=== PATIENT | female | born 1960 | race African-American/Black ===

== ENCOUNTER 2016-06-08 08:21 | Emergency (ER) | payer OTHER ==
[2016-06-08 08:43] VITALS: BP 146/78
--- NOTE | 2016-06-08 09:10 | UC ---
Throat Pain/Nasal Yamil HPI - HPI Summary HPI Summary: Very sore throat with nasal congestion since yesterday, temp of 100.5 last night. Denies trouble breathing or n/v/d. School-aged aba was at house last week, left a couple days ago. - History of Current Complaint Chief Complaint: UCGeneralIllness Stated Complaint: SORE THROAT CONGESTION Time Seen by Provider: 06/08/16 09:02 Hx Obtained From: Patient ?: No Onset/Duration: Gradual Onset, Lasting Hours Severity: Moderate Cough: None Associated Signs & Symptoms: Positive: Nasal Discharge, Fever. Negative: Vomiting - Allergies/Home Medications Allergies/Adverse Reactions: Allergies Allergy/AdvReac Type Severity Reaction Status Date / Time No Known Allergies Allergy Verified 09/30/15 09:36 PMH/Surg Hx/FS Hx/Imm Hx Cardiovascular History Of: Reports: Hypertension - ON MEDS Respiratory History Of: Reports: Asthma Psychological History Of: Reports: Bipolar Disorder - Surgical History Surgical History: Yes Surgery Procedure, Year, and Place: appendix; tubal ligation - Family History Known Family History: Positive: Hypertension - Social History Lives: With Family Alcohol Use: Daily Alcohol Amount: 2 cans of beer per day - last drink three days ago Substance Use Type: Marijuana Substance Use Comment - Amount & Last Used: daily Smoking Status (MU): Light Every Day Tobacco Smoker Review of Systems Constitutional: Fever Skin: Negative Eyes: Negative ENT: Sore Throat, Nasal Discharge Respiratory: Negative Cardiovascular: Negative Gastrointestinal: Negative Genitourinary: Negative Motor: Negative Neurovascular: Negative Musculoskeletal: Negative Neurological: Negative Psychological: Negative All Other Systems Reviewed And Are Negative: Yes Physical Exam Triage Information Reviewed: Yes Appearance: Well-Appearing, No Pain Distress, Obese Vital Signs: Initial Vital Signs Temp 99.0 F 06/08/16 08:37 Pulse 122 06/08/16 08:37 Resp 20 06/08/16 08:37 BP 146/78 06/08/16 08:37 Pulse Ox 98 06/08/16 08:37 Vital Signs Reviewed: Yes Eye Exam: Normal Eyes: Positive: Conjunctiva Clear ENT: Positive: Hearing grossly normal, Pharyngeal erythema - mild, TMs normal. Negative: Tonsillar swelling, Tonsillar exudate Dental Exam: Normal Neck exam: Normal Neck: Positive: Supple, Nontender, No Lymphadenopathy Respiratory Exam: Normal Respiratory: Positive: Chest non-tender, Lungs clear, Normal breath sounds, No respiratory distress, No accessory muscle use Cardiovascular: Positive: No Murmur, Tachycardia Musculoskeletal Exam: Normal Neurological Exam: Normal Psychological Exam: Normal Skin Exam: Normal Throat Pain/Nasal Course/Dx - Differential Dx/Diagnosis Provider Diagnoses: URI, likely viral Discharge - Discharge Plan Condition: Stable Disposition: HOME Prescriptions: Ibuprofen TAB* [Motrin TAB* 600 MG] 600 mg PO BID PRN #20 tab PRN Reason: pain Patient Education Materials: Upper Respiratory Infection (ED) Referrals: Antione Dasilva MD [Primary Care Provider] - If Needed Additional Instructions: Rapid strep negative. Call or return if you develop increasing fever, shortness of breath, chest pain , bloody sputum, or otherwise worsen. If you have not improved at all after several days, contact your primary care physician or return here. There is some concern about combining your medications with ibuprofen. In lower doses, and used occasionally, there should not be a problem. I recommend that you take one 600mg ibuprofen about an hour before bedtime to help with your throat pain at night. Take a dose in the morning or at lunch time only if no other remedies are helping. Other ways to help with your sore throat: gargle with warm salt water gargle with a numbing medicine, such as listerine sip hot tea (arleen and lemon with honey works well) take acetaminophen (tylenol) distract yourself, such as with watching a movie
== END 2016-06-08 09:36 | disposition home or self-care (01) ==
LOC: UCEAST 08:21
DX: J06.9 Acute upper respiratory infection, unspecified (principal); I10 Essential (primary) hypertension; F31.9 Bipolar disorder, unspecified; Z72.0 Tobacco use; J45.909 Unspecified asthma, uncomplicated
CPT/HCPCS: 87651; 99212; G0463

== ENCOUNTER 2016-06-15 07:49 | Emergency (ER) | payer OTHER ==
[2016-06-15 07:57] VITALS: BP 130/98
--- NOTE | 2016-06-15 09:12 | RAD ---
HISTORY: Crush injury, fourth digit of the left hand COMPARISONS: None VIEWS: 3, Frontal, lateral, and oblique views of the fourth digit of the left hand FINDINGS: BONE DENSITY: Normal. BONES: There is a transverse nondisplaced fracture of the distal phalanx of the fourth digit of left hand JOINTS: There is no arthropathy. ALIGNMENT: There is no dislocation. SOFT TISSUES: Unremarkable. OTHER FINDINGS: None. IMPRESSION: NONDISPLACED FRACTURE OF THE DISTAL PHALANX OF THE FOURTH DIGIT OF LEFT HAND
--- NOTE | 2016-06-15 09:46 | ED ---
Upper Extremity Pain - HPI Summary HPI Summary: Rt hand dominant pt here w/ Lt ring finger injury yesterday. Was closing her recycling bin when she accidentally slammed her finger tip in between the container and lid. Pain but she kept moving it around and didn't feel it was broken so went to bed. Today it is much more swollen and bruised. Still moving well but wanted to see what happened. No numbness, weakness - no other injuries to report. Denies cut or abrasions over the area. Imms are UTD. - History of Current Complaint Chief Complaint: EDExtremityUpper Stated Complaint: LT HAND / FINGER INJURY Time Seen by Provider: 06/15/16 09:31 Hx Obtained From: Patient - Allergies/Home Medications Allergies/Adverse Reactions: Allergies Allergy/AdvReac Type Severity Reaction Status Date / Time No Known Allergies Allergy Verified 09/30/15 09:36 PMH/Surg Hx/FS Hx/Imm Hx Previously Healthy: Yes Endocrine/Hematology History: Reports: Other Endocrine/Hematological Disorders - herpes Denies: Hx Anticoagulant Therapy, Hx Blood Disorders, Hx Unexplained Bleeding Cardiovascular History: Reports: Hx Hypertension - ON MEDS Respiratory History: Reports: Hx Asthma GI History: Reports: Other GI Disorders - Hep C Neurological History: Reports: Other Neuro Impairments/Disorders - PT STATES FAMILY HX SCIATICA Psychiatric History: Reports: Hx Bipolar Disorder - Surgical History Surgery Procedure, Year, and Place: appendix; tubal ligation Infectious Disease History: Yes Infectious Disease History: Reports: Hx Hepatitis - C, Hx Human Immunodeficiency Virus (HIV) - on meds Denies: Traveled Outside the [place] in Last 30 Days - Family History Known Family History: Positive: Hypertension, Diabetes - Social History Occupation: Disabled Lives: With Family - Alcohol Use: None Substance Use Type: Reports: Marijuana - occasionally Substance Use Comment - Amount & Last Used: daily Smoking Status (MU): Current Some Day Smoker - "occasionally", trying to quit Review of Systems Negative: Fever, Chills Negative: Chest Pain Negative: Shortness Of Breath Positive: no symptoms reported Musculoskeletal: Other - see HPI Positive: Bruising - see HPI Neurological: Negative Psychological: Normal All Other Systems Reviewed And Are Negative: Yes Physical Exam Triage Information Reviewed: Yes Vital Signs On Initial Exam: Initial Vitals Temp Pulse Resp BP Pulse Ox 97.2 F 111 20 130/98 97 06/15/16 07:54 06/15/16 07:54 06/15/16 07:54 06/15/16 07:54 06/15/16 07:54 Vital Signs Reviewed: Yes Appearance: Positive: Well-Appearing, No Pain Distress, Well-Nourished Skin: Positive: Warm, Dry - gustavo ecchymosis w/ edema of palmar surface of distal Lt ring finger phalanx - TTP; well perfused; moving finger well Head/Face: Positive: Normal Head/Face Inspection ENT: Positive: Hearing grossly normal Respiratory/Lung Sounds: Positive: Breath Sounds Present Cardiovascular: Positive: Pulses are Symmetrical in both Upper and Lower Extremities Musculoskeletal: Positive: Strength/ROM Intact, Pain @ - see SKIN above for details Neurological: Positive: Normal, Sensory/Motor Intact - affected area is hypersensitive to touch, Alert, Oriented to Person Place, Time Psychiatric: Positive: Normal Procedures - Splinting Location: Lt ring finger Pre-Made Type: metal - w/ foam Diagnostics - Vital Signs Vital Signs Temp Pulse Resp BP Pulse Ox 06/15/16 07:54 97.2 F 111 20 130/98 97 - Laboratory Lab Statement: Any lab studies that have been ordered have been reviewed, and results considered in the medical decision making process. Course/Dx - Diagnoses Provider Diagnoses: Fracture of distal phalanx of left ring finger Discharge - Discharge Plan Condition: Stable Disposition: HOME Prescriptions: Cephalexin CAP* [Keflex CAP*] 500 mg PO BID #19 cap Patient Education Materials: Finger Fracture (ED) Referrals: Antione Dasilva MD [Primary Care Provider] - Additional Instructions: Rest, ice, elevate Take antibiotics as directed Keep splint in place until cleared by PCP You may take ibuprofen with food for pain Follow-up with PCP later this week for recheck of tissue *if you develop redness, streaking, fever, chill, return to ED
[2016-06-15] MEDS ORDERED: Cephalexin CAP* 500 MG PO ONE (09:50)
[2016-06-15] MEDS ORDERED: Ibuprofen TAB* 600 MG PO ONE (09:50)
== END 2016-06-15 10:33 | disposition home or self-care (01) ==
LOC: ED 07:49
DX: S62.605A Fracture of unspecified phalanx of left ring finger, initial encounter for closed fracture (principal); W22.8XXA Striking against or struck by other objects, initial encounter; Y93.9 Activity, unspecified; Y92.89 Other specified places as the place of occurrence of the external cause; Y99.9 Unspecified external cause status
CPT/HCPCS: 73140; 99282; A9270-GY

== ENCOUNTER 2017-01-18 09:34 | Emergency (ER) | payer OTHER ==
[2017-01-18] MEDS ORDERED: NS 0.9% 1000 ML* 1,000 ML IV ONE (10:08)
[2017-01-18] MEDS ORDERED: GuaiFENesin DM* 5 ML UDC PO ONE (10:09)
[2017-01-18 10:33] LABS: Hematocrit 42 % (35-47); Hemoglobin 14.2 g/dl (12.0-16.0); Mean Corpuscular HGB Conc 34 g/dl (31-36); Mean Corpuscular Hemoglobin 32 pg (27-31); Mean Corpuscular Volume 94 fL (80-97); Mean Platelet Volume 9 um3 (7.4-10.4); Red Blood Count 4.48 10^6/ul (4.0-5.4); Red Cell Distribution Width 14 % (10.5-15); White Blood Count 6.7 10^3/ul (3.5-10.8)
--- NOTE | 2017-01-18 10:37 | RAD ---
Indication: Shortness of breath. 2 views of the chest including dual energy PA views demonstrate no mediastinal shift. Heart is of normal size and configuration. Lung nunez are clear. When compared to previous exam February 29, 2016 no significant change is noted. IMPRESSION: No active cardiopulmonary disease is noted.
[2017-01-18 11:04] LABS: Albumin 4.4 g/dL (3.2-5.2); C Reactive Protein 2.3 mg/L (< 5.00); Calcium 9.3 mg/dL (8.6-10.3); EGFR Non-African American 52.1 (>60); Globulin 3.2 g/dL (2-4); Potassium 4.1 mmol/L (3.5-5.0); Total Bilirubin 0.4 mg/dL (0.2-1.0); Total Protein 7.6 g/dL (6.4-8.9)
[2017-01-18 12:06] LABS: Urine Bilirubin Negative (Negative); Urine Glucose Negative (Negative); Urine Nitrite Negative (Negative)
[2017-01-18 12:42] VITALS: BP 136/81
--- NOTE | 2017-01-18 18:40 | ED ---
Sommer Gabriel SooYoung, scribed for Tres Kaiser MD on 01/18/17 at 1009 . Respiratory - HPI Summary HPI Summary: A 56 y/o F presents to ED with c/o severe cough onset three days ago. Associated sx: chills, diaphoresis. Denies CP. Smoker. Denies COPD. PMHx: asthma , - History of Current Complaint Chief Complaint: EDShortnessOfBreath Stated Complaint: BREATHING PROBLEM Time Seen by Provider: 01/18/17 10:04 Onset/Duration: Lasting Days, Still Present Current Severity: Mild Pain Intensity: 0 Associated Signs and Symptoms: Chills, Diaphoresis - Allergy/Home Medications Allergies/Adverse Reactions: Allergies Allergy/AdvReac Type Severity Reaction Status Date / Time Midazolam [From Versed] Allergy Unknown Verified 01/18/17 09:48 Reaction Details PMH/Surg Hx/FS Hx/Imm Hx Previously Healthy: No Endocrine/Hematology History: Reports: Other Endocrine/Hematological Disorders - herpes Denies: Hx Anticoagulant Therapy, Hx Blood Disorders, Hx Unexplained Bleeding Cardiovascular History: Reports: Hx Hypertension - ON MEDS Respiratory History: Reports: Hx Asthma GI History: Reports: Other GI Disorders - Hep C Neurological History: Reports: Other Neuro Impairments/Disorders - PT STATES FAMILY HX SCIATICA Psychiatric History: Reports: Hx Bipolar Disorder - Surgical History Surgery Procedure, Year, and Place: appendix; tubal ligation Infectious Disease History: No Infectious Disease History: Reports: Hx Hepatitis - C, Hx Human Immunodeficiency Virus (HIV) - on meds Denies: Traveled Outside the [place] in Last 30 Days - Family History Known Family History: Positive: Hypertension, Diabetes - Social History Occupation: Employed Full-time, Disabled Lives: With Family Alcohol Use: None Alcohol Amount: 1 beer last night Hx Substance Use: Yes Substance Use Type: Reports: Marijuana Substance Use Comment - Amount & Last Used: daily Hx Tobacco Use: Yes Smoking Status (MU): Heavy Every Day Tobacco Smoker Review of Systems Positive: Chills, Skin Diaphoresis Negative: Chest Pain Positive: Cough All Other Systems Reviewed And Are Negative: Yes Physical Exam - Summary Physical Exam Summary: VITAL SIGNS: Reviewed. GENERAL: Patient is a well-developed and nourished FEMALE who is lying comfortable in the stretcher. Patient is not in any acute respiratory distress. HEAD AND FACE: No signs of trauma. No ecchymosis, hematomas or skull depressions. No sinus tenderness. EYES: PERRLA, EOMI x 2, No injected conjunctiva, no nystagmus. EARS: Hearing grossly intact. Ear canals and tympanic membranes are within normal limits. MOUTH: Oropharynx within normal limits. NECK: Supple, trachea is midline, no adenopathy, no JVD, no carotid bruit, no c- spine tenderness, neck with full ROM. CHEST: Symmetric, no tenderness at palpation LUNGS: Diffuse rhonchi. Can hear congestion. CVS: Regular rate and rhythm, S1 and S2 present, no murmurs or gallops appreciated. ABDOMEN: Soft, non-tender. No signs of distention. No rebound, no guarding, and no masses palpated. Bowel sounds are normal. EXTREMITIES: FROM in all major joints, no edema, no cyanosis or clubbing. NEURO: Alert and oriented x 3. No acute neurological deficits. Speech is normal and follows commands. SKIN: Dry and warm Triage Information Reviewed: Yes Vital Signs On Initial Exam: Initial Vitals Temp Pulse Resp BP Pulse Ox 97.6 F 90 22 130/86 95 01/18/17 09:35 01/18/17 09:35 01/18/17 09:35 01/18/17 09:35 01/18/17 09:35 Vital Signs Reviewed: Yes - [place] Coma Scale Coma Scale Total: 15 Diagnostics - Vital Signs Vital Signs Temp Pulse Resp BP Pulse Ox 01/18/17 09:35 97.6 F 90 22 130/86 95 - Laboratory Lab Results: Lab Results 01/18/17 01/18/17 01/18/17 Range/Units 10:15 10:15 10:15 WBC 6.7 (3.5-10.8) 10^3/ul RBC 4.48 (4.0-5.4) 10^6/ul Hgb 14.2 (12.0-16.0) g/dl Hct 42 (35-47) % MCV 94 (80-97) fL MCH 32 H (27-31) pg MCHC 34 (31-36) g/dl RDW 14 (10.5-15) % Plt Count 208 (150-450) 10^3/ul MPV 9 (7.4-10.4) um3 Neut % (Auto) 51.0 (38-83) % Lymph % (Auto) 40.6 (25-47) % [place] % (Auto) 5.6 (1-9) % Eos % (Auto) 1.5 (0-6) % Baso % (Auto) 1.3 (0-2) % Absolute Neuts (auto) 3.4 (1.5-7.7) 10^3/ul Absolute Lymphs (auto) 2.7 (1.0-4.8) 10^3/ul Absolute Monos (auto) 0.4 (0-0.8) 10^3/ul Absolute Eos (auto) 0.1 (0-0.6) 10^3/ul Absolute Basos (auto) 0.1 (0-0.2) 10^3/ul Absolute Nucleated RBC 0.01 10^3/ul Nucleated RBC % 0.2 Sodium 135 (133-145) mmol/L Potassium 4.1 (3.5-5.0) mmol/L Chloride 103 (101-111) mmol/L Carbon Dioxide 27 (22-32) mmol/L Anion Gap 5 (2-11) mmol/L BUN 12 (6-24) mg/dL Creatinine 1.09 H (0.51-0.95) mg/dL Est GFR ( Amer) 67.0 (>60) Est GFR (Non-Af Amer) 52.1 (>60) BUN/Creatinine Ratio 11.0 (8-20) Glucose 97 (70-100) mg/dL Lactic Acid (0.5-2.0) mmol/L Calcium 9.3 (8.6-10.3) mg/dL Total Bilirubin 0.40 (0.2-1.0) mg/dL AST 21 (13-39) U/L ALT 20 (7-52) U/L Alkaline Phosphatase 92 (34-104) U/L Total Creatine Kinase 324 H (10-223) U/L Troponin I 0.00 (<0.04) ng/mL C-Reactive Protein 2.30 (< 5.00) mg/L B-Natriuretic Peptide 19 ( - 100) pg/mL Total Protein 7.6 (6.4-8.9) g/dL Albumin 4.4 (3.2-5.2) g/dL Globulin 3.2 (2-4) g/dL Albumin/Globulin Ratio 1.4 (1-3) Urine Color Urine Appearance Urine pH (5-9) Ur Specific [place] (1.010-1.030) Urine Protein (Negative) Urine Ketones (Negative) Urine Blood (Negative) Urine Nitrate (Negative) Urine Bilirubin (Negative) Urine Urobilinogen (Negative) Ur Leukocyte Esterase (Negative) Urine Glucose (Negative) Influenza A (Rapid) (Negative) Influenza B (Rapid) (Negative) 01/18/17 01/18/17 01/18/17 Range/Units 10:15 11:00 11:50 WBC (3.5-10.8) 10^3/ul RBC (4.0-5.4) 10^6/ul Hgb (12.0-16.0) g/dl Hct (35-47) % MCV (80-97) fL MCH (27-31) pg MCHC (31-36) g/dl RDW (10.5-15) % Plt Count (150-450) 10^3/ul MPV (7.4-10.4) um3 Neut % (Auto) (38-83) % Lymph % (Auto) (25-47) % [place] % (Auto) (1-9) % Eos % (Auto) (0-6) % Baso % (Auto) (0-2) % Absolute Neuts (auto) (1.5-7.7) 10^3/ul Absolute Lymphs (auto) (1.0-4.8) 10^3/ul Absolute Monos (auto) (0-0.8) 10^3/ul Absolute Eos (auto) (0-0.6) 10^3/ul Absolute Basos (auto) (0-0.2) 10^3/ul Absolute Nucleated RBC 10^3/ul Nucleated RBC % Sodium (133-145) mmol/L Potassium (3.5-5.0) mmol/L Chloride (101-111) mmol/L Carbon Dioxide (22-32) mmol/L Anion Gap (2-11) mmol/L BUN (6-24) mg/dL Creatinine (0.51-0.95) mg/dL Est GFR ( Amer) (>60) Est GFR (Non-Af Amer) (>60) BUN/Creatinine Ratio (8-20) Glucose (70-100) mg/dL Lactic Acid 1.0 (0.5-2.0) mmol/L Calcium (8.6-10.3) mg/dL Total Bilirubin (0.2-1.0) mg/dL AST (13-39) U/L ALT (7-52) U/L Alkaline Phosphatase (34-104) U/L Total Creatine Kinase (10-223) U/L Troponin I (<0.04) ng/mL C-Reactive Protein (< 5.00) mg/L B-Natriuretic Peptide ( - 100) pg/mL Total Protein (6.4-8.9) g/dL Albumin (3.2-5.2) g/dL Globulin (2-4) g/dL Albumin/Globulin Ratio (1-3) Urine Color Yellow Urine Appearance Clear Urine pH 6.0 (5-9) Ur Specific [place] 1.009 L (1.010-1.030) Urine Protein Negative (Negative) Urine Ketones Negative (Negative) Urine Blood Negative (Negative) Urine Nitrate Negative (Negative) Urine Bilirubin Negative (Negative) Urine Urobilinogen Negative (Negative) Ur Leukocyte Esterase Negative (Negative) Urine Glucose Negative (Negative) Influenza A (Rapid) Negative (Negative) Influenza B (Rapid) Negative (Negative) Result Diagrams: 01/18/17 10:15 01/18/17 10:15 Lab Statement: Any lab studies that have been ordered have been reviewed, and results considered in the medical decision making process. - Radiology CXR Xray Interpretation: No Acute Changes - IMPRESSION: No active cardiopulmonary dz. ED physician has reviewed this radiology report and agrees. Radiology Interpretation Completed By: Radiologist - EKG 1 Cardiac Rate: NL - 77bpm EKG Rhythm: Sinus Rhythm ST Segment: Normal Ectopy: None EKG Comparison: No Significant Change - from 09/30/2015 Re-Evaluation - Re-Evaluation 1 Re-Evaluation Time: 12:13 Change: Unchanged Comment: Discussing results with pt, and plan for dispo. Pt voiced understanding. Disposition - Course Course Of Treatment: A 56 y/o F presents to ED with c/o severe cough onset three days ago. Associated sx: chills, diaphoresis. Denies CP. Smoker. Denies COPD. PMHx: asthma. Test results are without any significant abnormalities. CXR is neg for PNA. Given robitussin for cough, and she improved. It seems that pt has an URI with viral etiology. Therefore, D/C home to f/u PCP, no need for ABX at this time. Recommended to return to ED if she develops fever, n/v, and productive cough. Pt voiced understanding. Pt is hemodynamically stable, A&Ox3. - Differential Dx - Cardiopulmonary Differential Diagnoses - Cardiopulmonary: Bronchitis, Influenza, Laryngitis, Lower Resp Infection, Sinusitis - Diagnoses Provider Diagnoses: URI (upper respiratory infection) Discharge - Discharge Plan Condition: Stable Disposition: HOME Prescriptions: GuaiFENesin DM* [Robitussin DM*] 10 ml PO Q6H PRN #120 ml PRN Reason: Cough Patient Education Materials: Guaifenesin (By mouth), Upper Respiratory Infection (ED) Referrals: Antione Dasilva MD [Primary Care Provider] - 3 Days Additional Instructions: Follow up with your primary care provider in 3 days. Please return to the ED if you experience new or worsening symptoms. The documentation as recorded by the Sommer pelletier SooYoung accurately reflects the service I personally performed and the decisions made by me, Tres Kaiser MD.
== END 2017-01-18 12:41 | disposition home or self-care (01) ==
LOC: ED 09:34
DX: J06.9 Acute upper respiratory infection, unspecified (principal); R05 Cough; R68.83 Chills (without fever); F17.210 Nicotine dependence, cigarettes, uncomplicated
CPT/HCPCS: 36415; 71020; 80053; 81003; 82550; 83605; 83880; 84484; 85025; 86140; 87040; 87502; 93005; 99283; A9270-GY

== ENCOUNTER → 2017-01-30 04:11 | Emergency (ER) | payer OTHER ==
[~2017-01-30 04:11] MED LIST: Albuterol/Ipratropium NEB.SOL* Albuterol 2.5 MG/Ipratropium 0.5 MG 3 ML INH ONE; Azithromycin TAB* 250 MG PO ONE; predniSONE TAB* 20 MG PO ONE
[2017-01-30 05:25] LABS: Hematocrit 40 % (35-47); Hemoglobin 13.4 g/dl (12.0-16.0); Mean Corpuscular HGB Conc 34 g/dl (31-36); Mean Corpuscular Hemoglobin 32 pg (27-31); Mean Corpuscular Volume 95 fL (80-97); Mean Platelet Volume 9 um3 (7.4-10.4); Red Blood Count 4.18 10^6/ul (4.0-5.4); Red Cell Distribution Width 14 % (10.5-15)
[2017-01-30 05:38] LABS: Albumin 4.1 g/dL (3.2-5.2); BUN/Creatinine Ratio 15.5 (8-20); Calcium 9.4 mg/dL (8.6-10.3); EGFR African American 76.4 (>60); EGFR Non-African American 59.4 (>60); Globulin 2.9 g/dL (2-4); Total Bilirubin 0.2 mg/dL (0.2-1.0)
[2017-01-30 05:53] VITALS: BP 139/91
[2017-01-30 05:54] LABS: Potassium 4.2 mmol/L (3.5-5.0)
--- NOTE | 2017-01-30 09:22 | RAD ---
Indication: Shortness of breath. History of tobacco use. Comparison: January 19, 2017 chest radiograph and September 30, 2015 CT abdomen. Technique: Upright AP 0440 hours Report: Patchy rarefaction of the upper lung zone interstitial markings. No pulmonary infiltrate, focal pulmonary lesion, pleural effusion, pneumothorax. Upper normal heart size. Unremarkable central pulmonary vasculature and mediastinal contours. IMPRESSION: Stigmata of obstructive lung disease. No acute pulmonary or cardiac process evident.
--- NOTE | 2017-02-01 02:45 | ED ---
Lyn Gabriel Edward, scribed for Naeem Rivero on 01/30/17 at 0414 . Shortness of Breath - HPI Summary HPI Summary: 57 y/o female BIBA c/o intermittent cough lasting 3 weeks. The cough is nonproductive. Pt c/o dizziness. Associated sx: mild SOB aggravated with her cough. Denies fever. MHx asthma. Pt states there may be some mold at her home. The symptoms are not alleviated with anything. PMHx HIV. Smoker. Pt smokes marijuana. FHx DM and HTN. - History of Current Complaint Hx Obtained From: Patient Onset/Duration: Lasting Weeks Current Severity: Severe Dyspnea At: Rest Aggrevating Factors: Other - Cough Alleviating Factors: Nothing Associated Signs & Symptoms: Cough (Nonproductive), Dizzy - Allergy/Home Medications Allergies/Adverse Reactions: Allergies Allergy/AdvReac Type Severity Reaction Status Date / Time Midazolam [From Versed] Allergy Unknown Verified 01/18/17 09:48 Reaction Details PMH/Surg Hx/FS Hx/Imm Hx Previously Healthy: No Endocrine/Hematology History: Reports: Other Endocrine/Hematological Disorders - herpes Denies: Hx Anticoagulant Therapy, Hx Blood Disorders, Hx Unexplained Bleeding Cardiovascular History: Reports: Hx Hypertension - ON MEDS Respiratory History: Reports: Hx Asthma GI History: Reports: Other GI Disorders - Hep C Neurological History: Reports: Other Neuro Impairments/Disorders - PT STATES FAMILY HX SCIATICA Psychiatric History: Reports: Hx Bipolar Disorder - Surgical History Surgery Procedure, Year, and Place: appendix; tubal ligation Infectious Disease History: Reports: Hx Hepatitis - C, Hx Human Immunodeficiency Virus (HIV) - on meds - Family History Known Family History: Positive: Hypertension, Diabetes - Social History Alcohol Use: None Alcohol Amount: 1 beer last night Hx Substance Use: Yes Substance Use Type: Reports: Marijuana Substance Use Comment - Amount & Last Used: daily Hx Tobacco Use: Yes Smoking Status (MU): Heavy Every Day Tobacco Smoker Review of Systems Constitutional: Negative Eyes: Negative ENT: Negative Cardiovascular: Negative Positive: Shortness Of Breath, Cough Gastrointestinal: Negative Genitourinary: Negative Musculoskeletal: Negative Skin: Negative Neurological: Other - Dizziness Psychological: Normal All Other Systems Reviewed And Are Negative: Yes Physical Exam Triage Information Reviewed: Yes Vital Signs Reviewed: Yes Appearance: Positive: Well-Appearing, No Pain Distress Skin: Positive: Warm, Skin Color Reflects Adequate Perfusion, Dry Head/Face: Positive: Normal Head/Face Inspection Eyes: Positive: EOMI, NEDRA ENT: Positive: Normal ENT inspection Neck: Positive: Supple, Nontender Respiratory/Lung Sounds: Positive: Breath Sounds Present, Wheezes - Bilateral Cardiovascular: Positive: RRR, Pulses are Symmetrical in both Upper and Lower Extremities Abdomen Description: Positive: Nontender, Soft Bowel Sounds: Positive: Present Musculoskeletal: Positive: Normal, Strength/ROM Intact Neurological: Positive: Normal, Sensory/Motor Intact, Alert, Oriented to Person Place, Time Diagnostics - Laboratory Result Diagrams: 01/30/17 05:14 01/30/17 05:14 Lab Statement: Any lab studies that have been ordered have been reviewed, and results considered in the medical decision making process. - Radiology CXR Xray Interpretation: No Acute Changes Radiology Interpretation Completed By: ED Physician - EKG 1 EKG Interpretation: 04:32 - SR @ 81 BPM. NO ACUTE CHANGES Course/Dx - Course Assessment/Plan: 57 y/o female BIBA c/o intermittent cough lasting 3 weeks. The cough is nonproductive. Pt c/o dizziness. Associated sx: mild SOB aggravated with her cough. Denies fever. MHx asthma. Pt states there may be some mold at her home. The symptoms are not alleviated with anything. PMHx HIV. Smoker. Pt smokes marijuana. FHx DM and HTN. EKG @ 04:32 - SR @ 81 BPM. NO ACUTE CHANGES. CXR NEGATIVE. Test results WNL. Given duoneb and prednisone, feels better. Most likely pt has exacerbation of asthma and bronchitis. Will d/c pt with steroids and abx and f/u with PCP in 3 days. - Diagnoses Provider Diagnoses: Exacerbation of asthma, exacerbation of bronchitis Discharge - Discharge Plan Condition: Stable Disposition: HOME Patient Education Materials: Asthma (ED), Acute Bronchitis (ED) Referrals: Antione Dasilva MD [Primary Care Provider] - 3 Days (PLEASE F/U IN 2-3 DAYS) The documentation as recorded by the Lyn pelletier Edward accurately reflects the service I personally performed and the decisions made by Mat spear Emmanuel.
== END | disposition home or self-care (01) ==
LOC: ED 04:11
DX: J45.901 Unspecified asthma with (acute) exacerbation (principal); B20 Human immunodeficiency virus [HIV] disease; Z72.0 Tobacco use; I10 Essential (primary) hypertension; F31.9 Bipolar disorder, unspecified
CPT/HCPCS: 36415; 71010; 80053; 83880; 84484; 85025; 93005; 94640; 99283; A9270-GY; J7512

== ENCOUNTER 2017-03-02 09:14 | Emergency (ER) | payer OTHER ==
[2017-03-02 10:03] LABS: Hematocrit 43 % (35-47); Hemoglobin 14.2 g/dl (12.0-16.0); Mean Corpuscular HGB Conc 33 g/dl (31-36); Mean Corpuscular Hemoglobin 31 pg (27-31); Mean Corpuscular Volume 94 fL (80-97); Mean Platelet Volume 9 um3 (7.4-10.4); Red Blood Count 4.53 10^6/ul (4.0-5.4); Red Cell Distribution Width 14 % (10.5-15); White Blood Count 6.9 10^3/ul (3.5-10.8)
[2017-03-02 10:18] LABS: Albumin 4.4 g/dL (3.2-5.2); BUN/Creatinine Ratio 14.3 (8-20); C Reactive Protein 3.77 mg/L (< 5.00); Calcium 9.9 mg/dL (8.6-10.3); EGFR African American 69.7 (>60); EGFR Non-African American 54.2 (>60); Globulin 3.3 g/dL (2-4); Potassium 4.1 mmol/L (3.5-5.0); Total Bilirubin 0.3 mg/dL (0.2-1.0); Total Protein 7.7 g/dL (6.4-8.9)
--- NOTE | 2017-03-02 10:26 | RAD ---
Indication: Cough. 2 views of the chest are reviewed. Dual-energy PA views were obtained. Comparison is made with previous exam dated January 18, 2017. No mediastinal shift is noted. Heart is of normal size and configuration. Lung nunez are clear. IMPRESSION: No active cardiopulmonary disease is noted.
--- NOTE | 2017-03-02 10:39 | RAD ---
Indication: Left flank pain. CT of the abdomen and pelvis was performed without oral or IV contrast administration. Coronal and sagittal reconstructed images were obtained. Comparison is made with previous exam dated September 29, 2015. The lung bases demonstrate no pleural fluid, nodules or masses. Heart is of normal size without evidence pericardial effusion. Liver is normal in size. No focal lesions or intrahepatic ductal dilatation is noted. The spleen is normal in size. The pancreas indicates no mass or pancreatic duct dilatation. The common duct is not dilated. The gallbladder demonstrates no calcified gallstones, pericholecystic fluid or wall thickening. No adrenal masses are noted. The kidneys demonstrate no hydronephrosis. No retroperitoneal lymphadenopathy is noted. CT of the pelvis demonstrates no retroperitoneal or pelvic lymphadenopathy. No dilated loops of bowel are noted. The bladder is unremarkable. No hernias are noted. The uterus and ovaries are grossly unremarkable. Pelvic ring is intact. IMPRESSION: No definite evidence of obstructive uropathy. No other masses or fluid collections are identified.
[2017-03-02] MEDS ORDERED: NS 0.9% 1000 ML* 1,000 ML IV ONE (11:09)
[2017-03-02] MEDS ORDERED: oxyCODONE TAB* 5 MG TAB PO ONE (11:10)
[2017-03-02 11:35] LABS: Urine Bilirubin Negative (Negative); Urine Glucose Negative (Negative); Urine Nitrite Negative (Negative)
[2017-03-02] MEDS ORDERED: Acetaminophen TAB* 325 MG PO ONE (11:58)
[2017-03-02 13:38] VITALS: BP 142/97
--- NOTE | 2017-03-03 07:41 | ED ---
Raza Gabriel Angela, scribed for Tres Kaiser MD on 03/02/17 at 0934 . Complex/Multi-Sys Presentation - HPI Summary HPI Summary: This pt is a 57 y/o female presenting to [facility] via EMS c/o low back pain and myalgia. Pt reports "everything hurts." She notes she has pain starting in her low back radiating all the way up to her ear. Pt additionally c/o cough, sore throat, diarrhea. She denies rhinorrhea, dysuria, chest pain. PMHx includes HIV positive, hepatitis B, asthma. - History Of Current Complaint Time Seen by Provider: 03/02/17 09:21 Hx Obtained From: Patient Onset/Duration: Lasting Days, Still Present Timing: Days Location: Pain At: - low back, Radiates To: - up to her ear Associated Signs And Symptoms: Positive: Cough, Diarrhea, Other - POS: sore throat. NEG: rhinorrhea. Negative: Dysuria - Allergies/Home Medications Allergies/Adverse Reactions: Allergies Allergy/AdvReac Type Severity Reaction Status Date / Time Midazolam [From Versed] Allergy Unknown Verified 01/18/17 09:48 Reaction Details Oxycodone Allergy Itching Verified 03/02/17 11:22 PMH/Surg Hx/FS Hx/Imm Hx Endocrine/Hematology History: Reports: Other Endocrine/Hematological Disorders - herpes Denies: Hx Anticoagulant Therapy, Hx Blood Disorders, Hx Unexplained Bleeding Cardiovascular History: Reports: Hx Hypertension - ON MEDS Respiratory History: Reports: Hx Asthma GI History: Reports: Other GI Disorders - Hep C Neurological History: Reports: Other Neuro Impairments/Disorders - PT STATES FAMILY HX SCIATICA Psychiatric History: Reports: Hx Bipolar Disorder - Surgical History Surgery Procedure, Year, and Place: appendix; tubal ligation - Immunization History Date of Tetanus Vaccine: UTD Date of Influenza Vaccine: NO Infectious Disease History: Reports: Hx Hepatitis - C, Hx Human Immunodeficiency Virus (HIV) - on meds - Family History Known Family History: Positive: Hypertension, Diabetes - Social History Alcohol Use: None Alcohol Amount: 1 beer last night Hx Substance Use: Yes Substance Use Type: Reports: Marijuana Substance Use Comment - Amount & Last Used: daily Hx Tobacco Use: Yes Smoking Status (MU): Heavy Every Day Tobacco Smoker Review of Systems Negative: Fever, Chills Positive: Sore Throat Negative: Chest Pain Positive: Cough Positive: Diarrhea Musculoskeletal: Other - back pain Positive: Myalgia All Other Systems Reviewed And Are Negative: Yes Physical Exam - Summary Physical Exam Summary: VITAL SIGNS: Reviewed. GENERAL: Patient is a well-developed and nourished female who is lying comfortable in the stretcher. Patient is not in any acute respiratory distress. HEAD AND FACE: No signs of trauma. No ecchymosis, hematomas or skull depressions. No sinus tenderness. EYES: PERRLA, EOMI x 2, No injected conjunctiva, no nystagmus. EARS: Hearing grossly intact. Ear canals and tympanic membranes are within normal limits. MOUTH: Oropharynx within normal limits. NECK: Supple, trachea is midline, no adenopathy, no JVD, no carotid bruit, no c- spine tenderness, neck with full ROM. CHEST: Symmetric, no tenderness at palpation LUNGS: Clear to auscultation bilaterally. No wheezing or crackles. CVS: Regular rate and rhythm, S1 and S2 present, no murmurs or gallops appreciated. ABDOMEN: Soft, non-tender. No signs of distention. No rebound no guarding, and no masses palpated. Bowel sounds are normal. EXTREMITIES: FROM in all major joints, no edema, no cyanosis or clubbing. NEURO: Alert and oriented x 3. No acute neurological deficits. Speech is normal and follows commands. SKIN: Dry and warm Triage Information Reviewed: Yes Vital Signs Reviewed: Yes Diagnostics - Laboratory Result Diagrams: 03/02/17 09:50 03/02/17 09:50 Lab Statement: Any lab studies that have been ordered have been reviewed, and results considered in the medical decision making process. - Radiology Chest XR Xray Interpretation: No Acute Changes - IMPRESSION: No active cardiopulmonary disease is noted. ED physician has reviewed this radiology report and agrees. Radiology Interpretation Completed By: Radiologist - CT Abdomen/pelvis CT CT Interpretation: No Acute Changes - IMPRESSION: No definite evidence of obstructive uropathy. No other masses or fluid collections are identified. ED physician has reviewed this radiology report and agrees. CT Interpretation Completed By: Joycelyn Lassiter Multi-Symp Course/Dx Assessment/Plan: This pt is a 57 y/o female presenting to [facility] via EMS c/o low back pain and myalgia. Pt reports "everything hurts." She notes she has pain starting in her low back radiating all the way up to her ear. Pt additionally c/ o cough, sore throat, diarrhea. She denies rhinorrhea, dysuria, chest pain. PMHx includes HIV positive, hepatitis B, asthma. Test results without any significant abnormalities. Urinalysis is negative for UTI, influenza A and B and rapid strep are all negative. The pt had left flank pain and therefore I decided to do an abdomen/pelvis CT which is negative for ureterolithiasis. Abdomen/pelvis CT shows no definite evidence of obstructive uropathy. No other masses or fluid collections are identified. The pt is toleration PO without any nausea and vomiting. Pt was given IV fluids and oxycodone, and her symptoms improved. Therefore the pt will be discharged home with follow up from her PCP. Pt is hemodynamically stable, alert and oriented x3. - Diagnoses Provider Diagnoses: Upper respiratory infection, Back pain Discharge - Discharge Plan Condition: Stable Disposition: HOME Patient Education Materials: Upper Respiratory Infection (ED), Back Pain (ED) Referrals: Antione Dasilva MD [Primary Care Provider] - Additional Instructions: Please follow up with your primary care provider. RETURN TO THE ED FOR ANY WORSENING SYMPTOMS. The documentation as recorded by the Raza pelletier Angela accurately reflects the service I personally performed and the decisions made by me, Tres Kaiser MD.
== END 2017-03-02 13:36 | disposition home or self-care (01) ==
LOC: ED 09:14
DX: J06.9 Acute upper respiratory infection, unspecified (principal); M54.9 Dorsalgia, unspecified; R05 Cough; R19.7 Diarrhea, unspecified; J02.9 Acute pharyngitis, unspecified
CPT/HCPCS: 36415; 71020; 74176; 80053; 81003; 83690; 85025; 86140; 87502; 87651; 99282; A9270-GY

== ENCOUNTER 2017-04-01 16:11 | Emergency (ER) | payer OTHER ==
[2017-04-01 16:53] LABS: ABS Basophils 0.1 10^3/ul (0-0.2); ABS Eosinophils 0.1 10^3/ul (0-0.6); ABS Lymphocytes 3.3 10^3/ul (1.0-4.8); ABS Monocytes 0.5 10^3/ul (0-0.8); ABS Neutrophils 3.5 10^3/ul (1.5-7.7); ABS Nucleated RBC 0.02 10^3/ul; Eosinophil % 1.8 % (0-6); Hematocrit 42 % (35-47); Hemoglobin 13.9 g/dl (12.0-16.0); Lymphocyte % 43.8 % (25-47); Mean Corpuscular HGB Conc 33 g/dl (31-36); Mean Corpuscular Hemoglobin 31 pg (27-31); Mean Corpuscular Volume 94 fL (80-97); Mean Platelet Volume 10 um3 (7.4-10.4); Nucleated Red Blood Cells % 0.2; Platelet Count 207 10^3/ul (150-450); Red Blood Count 4.43 10^6/ul (4.0-5.4); Red Cell Distribution Width 14 % (10.5-15); White Blood Count 7.6 10^3/ul (3.5-10.8)
--- NOTE | 2017-04-01 16:53 | RAD ---
INDICATION: Chest pain COMPARISON: February 28, 2017 TECHNIQUE: An AP portable view obtained at 1637 hours is submitted. FINDINGS: Bones/Soft Tissues: There are no acute bony findings. Cardiomediastinal: The cardiomediastinal silhouette is normal. The interstitium is mildly prominent. Lungs: There are no infiltrates. Pleura: There are no pleural effusions. Other: None IMPRESSION: MILD INTERSTITIAL PROMINENCE, OTHERWISE NEGATIVE.
[2017-04-01] MEDS ORDERED: traMADol TAB* 50 MG PO ONE (17:14)
[2017-04-01 17:22] LABS: EGFR Non-African American 51.4 (>60)
[2017-04-01 18:29] VITALS: BP 151/95
--- NOTE | 2017-04-04 19:52 | ED ---
Ifeanyi Gabriel Natalie, scribed for Kwesi Majano MD on 04/01/17 at 1633 . HPI Chest Pain - HPI Summary HPI Summary: The pt is a 57 y/o F BIBA to the ED c/o sharp left flank pain starting this morning when she woke up. The pain radiates to her lower back. The pain is rated 10/10 in severity. The pain is aggravated by coughing, movement, and deep breaths. The pain is alleviated by nothing. 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 The pt has had nml urination and BM. She has not been on any long trips recently. Hx of asthma. - History of Current Complaint Chief Complaint: EDFlankPain Time Seen by Provider: 04/01/17 16:14 Hx Obtained From: Patient Onset/Duration: Started Hours Ago - when she woke up this morning, Still Present Timing: Constant, Lasting Hours Initial Severity: Severe Current Severity: Severe Pain Intensity: 10 Pain Scale Used: 0-10 Numeric Chest Pain Location: Left Lateral Chest Pain Radiates: Yes Chest Pain Radiates To:: Back - low back Character: Sharp/Stabbing Aggravating Factor(s): Movement, Deep Breaths Alleviating Factor(s): Nothing Associated Signs and Symptoms: Positive: Chest Pain - left lateral, Back Pain - low back, Other: - nml urination and BM - Allergy/Home Medications Allergies/Adverse Reactions: Allergies Allergy/AdvReac Type Severity Reaction Status Date / Time Midazolam [From Versed] Allergy Unknown Verified 01/18/17 09:48 Reaction Details Oxycodone Allergy Itching Verified 03/02/17 11:22 PMH/Surg Hx/FS Hx/Imm Hx Previously Healthy: No Endocrine/Hematology History: Reports: Other Endocrine/Hematological Disorders - herpes Denies: Hx Anticoagulant Therapy, Hx Blood Disorders, Hx Unexplained Bleeding Cardiovascular History: Reports: Hx Hypertension - ON MEDS Respiratory History: Reports: Hx Asthma GI History: Reports: Other GI Disorders - Hep C Neurological History: Reports: Other Neuro Impairments/Disorders - PT STATES FAMILY HX SCIATICA Psychiatric History: Reports: Hx Bipolar Disorder - Surgical History Surgery Procedure, Year, and Place: appendix; tubal ligation - Immunization History Date of Tetanus Vaccine: UTD Date of Influenza Vaccine: NO Infectious Disease History: No Infectious Disease History: Reports: Hx Hepatitis - C, Hx Human Immunodeficiency Virus (HIV) - on meds Denies: Traveled Outside the [place] in Last 30 Days - Family History Known Family History: Positive: Hypertension, Diabetes - Social History Alcohol Use: None Alcohol Amount: 1 beer last night Hx Substance Use: Yes Substance Use Type: Reports: Marijuana Substance Use Comment - Amount & Last Used: daily Hx Tobacco Use: Yes Smoking Status (MU): Heavy Every Day Tobacco Smoker Review of Systems Positive: Chest Pain - left flank Gastrointestinal: Other - nml BM Positive: other - nml urination Positive: Other - low back pain All Other Systems Reviewed And Are Negative: Yes Physical Exam - Summary Physical Exam Summary: Appearance: The patient is well-nourished in no acute distress and in no acute pain. Skin: The skin is warm and dry and skin color reflects adequate perfusion. HEENT: The head is normocephalic and atraumatic. The pupils are equal and reactive. The conjunctivae are clear and without drainage. Nares are patent and without drainage. Mouth reveals moist mucous membranes and the throat is without erythema and exudate. The external ears are intact. The ear canals are patent and without drainage. The tympanic membranes are intact. Neck: The neck is supple with full range of motion and non-tender. There are no carotid bruits. There is no neck vein distension. Respiratory: The patient is tender in posterior lateral chest wall. Lungs are clear to auscultation and breath sounds are symmetrical and equal. Cardiovascular: Heart is regular rate and rhythm. There is no murmur or rub auscultated. There is no peripheral edema and pulses are symmetrical and equal. Abdomen: The abdomen is soft and non-tender. There are normal bowel sounds heard in all four quadrants and there is no organomegaly palpated. Musculoskeletal: There is no back tenderness noted. Extremities are non-tender with full range of motion. There is good capillary refill. There is no peripheral edema or calf tenderness elicited. Neurological: Patient is alert and oriented to person, place and time. The patient has symmetrical motor strength in all four extremities. Cranial nerves are grossly intact. Deep tendon reflexes are symmetrical and equal in all four extremities. Psychiatric: The patient has an appropriate affect and does not exhibit any anxiety or depression. Triage Information Reviewed: Yes Vital Signs On Initial Exam: Initial Vitals Temp Pulse Resp BP Pulse Ox 97.8 F 99 18 120/98 98 04/01/17 16:13 04/01/17 16:13 04/01/17 16:13 04/01/17 16:13 04/01/17 16:13 Vital Signs Reviewed: Yes - Sam Coma Scale Coma Scale Total: 15 Diagnostics - Vital Signs Vital Signs Temp Pulse Resp BP Pulse Ox 04/01/17 16:13 97.8 F 99 18 120/98 98 - Laboratory Lab Results: Lab Results 04/01/17 04/01/17 04/01/17 Range/Units 16:20 16:20 16:20 WBC 7.6 (3.5-10.8) 10^3/ul RBC 4.43 (4.0-5.4) 10^6/ul Hgb 13.9 (12.0-16.0) g/dl Hct 42 (35-47) % MCV 94 (80-97) fL MCH 31 (27-31) pg MCHC 33 (31-36) g/dl RDW 14 (10.5-15) % Plt Count 207 (150-450) 10^3/ul MPV 10 (7.4-10.4) um3 Neut % (Auto) 46.5 (38-83) % Lymph % (Auto) 43.8 (25-47) % Morgan % (Auto) 6.9 (1-9) % Eos % (Auto) 1.8 (0-6) % Baso % (Auto) 1.0 (0-2) % Absolute Neuts (auto) 3.5 (1.5-7.7) 10^3/ul Absolute Lymphs (auto) 3.3 (1.0-4.8) 10^3/ul Absolute Monos (auto) 0.5 (0-0.8) 10^3/ul Absolute Eos (auto) 0.1 (0-0.6) 10^3/ul Absolute Basos (auto) 0.1 (0-0.2) 10^3/ul Absolute Nucleated RBC 0.02 10^3/ul Nucleated RBC % 0.2 D-Dimer, Quantitative < 200 (Less Than 230) ng/mL Sodium 137 (133-145) mmol/L Potassium TNP Chloride 102 (101-111) mmol/L Carbon Dioxide 30 (22-32) mmol/L Anion Gap 5 (2-11) mmol/L BUN 13 (6-24) mg/dL Creatinine 1.10 H (0.51-0.95) mg/dL Est GFR ( Amer) 66.1 (>60) Est GFR (Non-Af Amer) 51.4 (>60) BUN/Creatinine Ratio 11.8 (8-20) Glucose 92 (70-100) mg/dL Lactic Acid (0.5-2.0) mmol/L Calcium 9.4 (8.6-10.3) mg/dL Total Bilirubin 0.30 (0.2-1.0) mg/dL AST TNP ALT 21 (7-52) U/L Alkaline Phosphatase 69 (34-104) U/L Troponin I 0.00 (<0.04) ng/mL Total Protein 7.6 (6.4-8.9) g/dL Albumin 4.4 (3.2-5.2) g/dL Globulin 3.2 (2-4) g/dL Albumin/Globulin Ratio 1.4 (1-3) 04/01/17 04/01/17 Range/Units 16:20 17:43 WBC (3.5-10.8) 10^3/ul RBC (4.0-5.4) 10^6/ul Hgb (12.0-16.0) g/dl Hct (35-47) % MCV (80-97) fL MCH (27-31) pg MCHC (31-36) g/dl RDW (10.5-15) % Plt Count (150-450) 10^3/ul MPV (7.4-10.4) um3 Neut % (Auto) (38-83) % Lymph % (Auto) (25-47) % Morgan % (Auto) (1-9) % Eos % (Auto) (0-6) % Baso % (Auto) (0-2) % Absolute Neuts (auto) (1.5-7.7) 10^3/ul Absolute Lymphs (auto) (1.0-4.8) 10^3/ul Absolute Monos (auto) (0-0.8) 10^3/ul Absolute Eos (auto) (0-0.6) 10^3/ul Absolute Basos (auto) (0-0.2) 10^3/ul Absolute Nucleated RBC 10^3/ul Nucleated RBC % D-Dimer, Quantitative (Less Than 230) ng/mL Sodium (133-145) mmol/L Potassium 4.4 Chloride (101-111) mmol/L Carbon Dioxide (22-32) mmol/L Anion Gap (2-11) mmol/L BUN (6-24) mg/dL Creatinine (0.51-0.95) mg/dL Est GFR ( Amer) (>60) Est GFR (Non-Af Amer) (>60) BUN/Creatinine Ratio (8-20) Glucose (70-100) mg/dL Lactic Acid 1.1 (0.5-2.0) mmol/L Calcium (8.6-10.3) mg/dL Total Bilirubin (0.2-1.0) mg/dL AST 26 ALT (7-52) U/L Alkaline Phosphatase (34-104) U/L Troponin I (<0.04) ng/mL Total Protein (6.4-8.9) g/dL Albumin (3.2-5.2) g/dL Globulin (2-4) g/dL Albumin/Globulin Ratio (1-3) Result Diagrams: 04/01/17 16:20 04/01/17 17:43 Lab Statement: Any lab studies that have been ordered have been reviewed, and results considered in the medical decision making process. - Radiology CXR Xray Interpretation: No Acute Changes - Mild interstitial prominence, otherwise negative. ED physician has reviewed this report. Radiology Interpretation Completed By: Radiologist - EKG 16:30 Cardiac Rate: NL EKG Rhythm: Sinus Rhythm - 87 BPM EKG Interpretation: Nml axis. Nml intervals. No ischemic changes. Chest Pain Course/Dx - Course Course Of Treatment: Ms. Bowman presented with 12 or so hours of left anterior/ inferior chest pain with movement and breathing. It was reproducible to palpation. Her W/U with ecg, trop and d-dimer was negative and she has an EDACS of -2. - Diagnoses Provider Diagnoses: Chest wall pain Discharge - Discharge Plan Condition: Stable Disposition: HOME Prescriptions: traMADol TAB* [Ultram*] 50 mg PO Q6HR PRN #20 tab MDD 4 PRN Reason: Pain Patient Education Materials: Chest Wall Pain (ED) Referrals: Antione Dasilva MD [Primary Care Provider] - 3 Days Additional Instructions: Follow up with your primary care provider in 3-5 days. Take Ultram as prescribed. Return to the Emergency Department if any new or worsening symptoms arise. The documentation as recorded by the Ifeanyi pelletier Natalie accurately reflects the service I personally performed and the decisions made by me, Kwesi Majano MD.
== END 2017-04-01 18:30 | disposition home or self-care (01) ==
LOC: ED 16:11
DX: R07.89 Other chest pain (principal); J98.4 Other disorders of lung; F17.200 Nicotine dependence, unspecified, uncomplicated; Z88.4 Allergy status to anesthetic agent; Z88.5 Allergy status to narcotic agent
CPT/HCPCS: 36415; 71010; 80053; 83605; 84484; 85025; 85379; 93005; 99283; A9270-GY

== ENCOUNTER 2017-07-03 23:42 | Emergency (ER) | payer OTHER ==
[2017-07-04] MEDS ORDERED: Morphine INJ* 4 MG/ML 1 ML SYRINGE (NEW SYRINGE VERSION) IM ONE (01:48)
[2017-07-04] MEDS ORDERED: Dexamethasone IV* 4 MG/ML 1 ML (4 MG) IM ONE (01:48)
[2017-07-04] MEDS ORDERED: Morphine INJ* 10 MG/ML 1 ML CARPUJECT ONE (01:56)
[2017-07-04] MEDS ORDERED: HYDROmorphone INJ* 2 MG/ML CARPUJECT SYRINGE IV SLOW PU ONE (01:58)
[2017-07-04] MEDS: Morphine INJ* 10 MG/ML 1 ML CARPUJECT IV ONE ×2 (02:00→02:04)
[2017-07-04 02:20] VITALS: BP 136/82
--- NOTE | 2017-07-04 04:52 | ED ---
Noel Gabriel Nikita, scribed for Ashish Claire MD on 07/04/17 at 0141 . Back Pain - HPI Summary HPI Summary: This patient is a 57 year old F presenting to ED with a chief complaint of acute on chronic lower back pain since yesterday. The CC is described as throbbing pain going down the back of her left leg. The patient rates the pain 10/10 in severity. Symptoms aggravated by nothing. Symptoms alleviated by nothing (she is on neurontin and a muscle relaxer which has not helped tonight) . Patient reports numbness of her fingers. Patient denies urinary problems or any recent falls. - History of Current Complaint Chief Complaint: EDBackInjuryPain Stated Complaint: BACK PAIN Hx Obtained From: Patient Onset/Duration: Sudden Onset, Lasting Days, Still Present Onset/Duration: Started Hours Ago, Still Present Timing: Constant - acute on chronic, Lasting Hours Back Pain Location: Is Discrete @ - lower back, Radiates To - down the back of her left leg Severity Initially: Severe Severity Currently: Severe Pain Intensity: 10 Pain Scale Used: 0-10 Numeric Character: Throbbing Aggravating Symptom(s): Nothing Alleviating Symptom(s): Nothing - she is on neurontin and a muscle relaxer which has not helped tonight Associated Signs And Symptoms: Positive: Other - Patient reports numbness of her fingers. Patient denies urinary problems or any recent falls. - Allergies/Home Medications Allergies/Adverse Reactions: Allergies Allergy/AdvReac Type Severity Reaction Status Date / Time midazolam [From Versed] Allergy Unknown Verified 07/04/17 00:00 Reaction Details oxycodone AdvReac Itching Verified 07/04/17 00:00 PMH/Surg Hx/FS Hx/Imm Hx Endocrine/Hematology History: Reports: Other Endocrine/Hematological Disorders - herpes Denies: Hx Anticoagulant Therapy, Hx Blood Disorders, Hx Unexplained Bleeding Cardiovascular History: Reports: Hx Hypertension - ON MEDS Respiratory History: Reports: Hx Asthma GI History: Reports: Other GI Disorders - Hep C Neurological History: Reports: Other Neuro Impairments/Disorders - PT STATES FAMILY HX SCIATICA Psychiatric History: Reports: Hx Bipolar Disorder - Surgical History Surgery Procedure, Year, and Place: appendix; tubal ligation - Immunization History Date of Tetanus Vaccine: UTD Date of Influenza Vaccine: NO Infectious Disease History: No Infectious Disease History: Reports: Hx Hepatitis - C, Hx Human Immunodeficiency Virus (HIV) - on meds Denies: Traveled Outside the [place] in Last 30 Days - Family History Known Family History: Positive: Hypertension, Diabetes - Social History Alcohol Use: None Alcohol Amount: 1 beer last night Hx Substance Use: Yes Substance Use Type: Reports: Marijuana Substance Use Comment - Amount & Last Used: daily Hx Tobacco Use: Yes Smoking Status (MU): Heavy Every Day Tobacco Smoker Review of Systems Positive: no symptoms reported Positive: Other - acute on chronic back pain that radiates down the left leg; denies any recent falls Positive: Numbness - of her fingers All Other Systems Reviewed And Are Negative: Yes Physical Exam - Summary Physical Exam Summary: Appearance: Well-appearing, Well-nourished Skin: Warm Eyes: Normal ENT: Normal Neck: Supple, nontender Respiratory: Clear to auscultation Cardiovascular: Normal S1, S2. No murmurs. Normal distal pulses in tibial and radial bilaterally. Abdomen: Soft, nontender Musculoskeletal: Mild tenderness diffusely in the L lower paraspinal area and L posterior hip. Neurological: Normal, A&Ox3, No distal weakness, no sensory defiicits, no saddled anesthesia Psychiatric: Normal General: No acute distress Triage Information Reviewed: Yes Vital Signs On Initial Exam: Initial Vitals Temp Pulse Resp BP Pulse Ox 99.4 F 95 20 136/98 95 07/03/17 23:44 07/03/17 23:44 07/03/17 23:44 07/03/17 23:44 07/03/17 23:44 Vital Signs Reviewed: Yes Diagnostics - Vital Signs Vital Signs Temp Pulse Resp BP Pulse Ox 07/03/17 23:44 99.4 F 95 20 136/98 95 - Laboratory Lab Statement: Any lab studies that have been ordered have been reviewed, and results considered in the medical decision making process. Back Pain Course/Dx - Course Assessment/Plan: The pt feels better after medications. She is neurologically intact and is walking on her own. The patient was instructed to follow up with her PCP. Pt agrees to and understands discharge instructions. - Diagnoses Differential Diagnosis/HQI/PQRI: Positive: Other - Lumbar radiculopathy Provider Diagnoses: Lumbar radiculopathy Discharge - Sign-Out/Discharge Documenting (check all that apply): Discharge - Discharge Plan Condition: Improved Disposition: HOME Patient Education Materials: Lumbar Radiculopathy (ED) Referrals: Antione Dasilva MD [Primary Care Provider] - Additional Instructions: PLEASE TAKE MEDICATIONS DIRECTED PLEASE RETURN IMMEDIATELY TO THE ER IF YOU HAVE ANY WORSENING OR CONCERNING SYMPTOMS PLEASE MAKE AN APPOINTMENT TO BE SEEN BY YOUR PRIMARY CARE DOCTOR WITHIN 1 WEEK The documentation as recorded by the Noel pelletier Nikita accurately reflects the service I personally performed and the decisions made by me, Ashish Claire MD.
== END 2017-07-04 02:19 | disposition home or self-care (01) ==
LOC: ED 23:42
DX: M54.16 Radiculopathy, lumbar region (principal); F17.210 Nicotine dependence, cigarettes, uncomplicated; Z86.79 Personal history of other diseases of the circulatory system; M54.5 Low back pain
CPT/HCPCS: 96372; 96374; 99281; J1100; J2270

== ENCOUNTER 2017-09-09 02:03 | Emergency (ER) | payer OTHER ==
[2017-09-09 02:08] VITALS: BP 141/102
[2017-09-09] MEDS ORDERED: oxyCODONE/Acetamin 5/325 MG* TAB PO ONE (02:43)
[2017-09-09] MEDS ORDERED: traMADol TAB* 50 MG PO ONE (03:08)
[2017-09-09] MEDS ORDERED: traMADol TAB* 50 MG ONE (03:10)
--- NOTE | 2017-09-09 03:23 | ED ---
Orlando Gbariel Tiffany, scribed for Erika Escobar MD on 09/09/17 at 0302 . Lower Extremity - HPI Summary HPI Summary: 57 year old F presenting to [facility] complains of bilateral "bottom of feet pain for 2 days. Pt rates the pain 10/10 in severity. Symptoms aggravated by nothing. Symptoms alleviated by nothing. Pt reports left knee pain, bilateral palms of hands pain. No hx neuropathy. - History of Current Complaint Chief Complaint: EDExtremityLower Stated Complaint: HAND AND KNEE PAIN Time Seen by Provider: 09/09/17 02:29 Hx Obtained From: Patient Onset/Duration: Days - 2 Severity Currently: Severe Pain Intensity: 10 Pain Scale Used: 0-10 Numeric Associated Signs And Symptoms: Positive: Other - Pt reports left knee pain, bilateral palms of hands pain. Aggravating Factor(s): Nothing Alleviating Factor(s): Nothing - Allergies/Home Medications Allergies/Adverse Reactions: Allergies Allergy/AdvReac Type Severity Reaction Status Date / Time midazolam [From Versed] Allergy Unknown Verified 09/09/17 02:41 Reaction Details oxycodone AdvReac Itching Verified 09/09/17 02:41 PMH/Surg Hx/FS Hx/Imm Hx Previously Healthy: No Endocrine/Hematology History: Reports: Other Endocrine/Hematological Disorders - herpes Denies: Hx Anticoagulant Therapy, Hx Blood Disorders, Hx Unexplained Bleeding Cardiovascular History: Reports: Hx Hypertension - ON MEDS Respiratory History: Reports: Hx Asthma GI History: Reports: Other GI Disorders - Hep C Neurological History: Reports: Other Neuro Impairments/Disorders - PT STATES FAMILY HX SCIATICA Psychiatric History: Reports: Hx Bipolar Disorder - Surgical History Surgery Procedure, Year, and Place: appendix; tubal ligation - Immunization History Date of Tetanus Vaccine: unk Date of Influenza Vaccine: fall 2016 Infectious Disease History: No Infectious Disease History: Reports: Hx Hepatitis - C, Hx Human Immunodeficiency Virus (HIV) - on meds Denies: Traveled Outside the [place] in Last 30 Days - Family History Known Family History: Positive: Hypertension, Diabetes - Social History Alcohol Use: Rare Alcohol Amount: 1 beer last night Hx Substance Use: Yes Substance Use Type: Reports: Marijuana Substance Use Comment - Amount & Last Used: daily Hx Tobacco Use: Yes Smoking Status (MU): Light Every Day Tobacco Smoker Review of Systems Negative: Fever Positive: Other - bilateral "bottom of feet pain," left knee pain, bilateral palms of hands pain All Other Systems Reviewed And Are Negative: Yes Physical Exam - Summary Physical Exam Summary: VITAL SIGNS: Reviewed. GENERAL: Patient is a well-developed and nourished (MALE OR FEMALE) who is lying comfortable in the stretcher. Patient is not in any acute respiratory distress. HEAD AND FACE: No signs of trauma. No ecchymosis, hematomas or skull depressions. No sinus tenderness. EYES: PERRLA, EOMI x 2, No injected conjunctiva, no nystagmus. EARS: Hearing grossly intact. Ear canals and tympanic membranes are within normal limits. MOUTH: Oropharynx within normal limits. NECK: Supple, trachea is midline, no adenopathy, no JVD, no carotid bruit, no c- spine tenderness, neck with full ROM. CHEST: Symmetric, no tenderness at palpation LUNGS: Clear to auscultation bilaterally. No wheezing or crackles. CVS: Regular rate and rhythm, S1 and S2 present, no murmurs or gallops appreciated. ABDOMEN: Soft, non-tender. No signs of distention. No rebound no guarding, and no masses palpated. Bowel sounds are normal. EXTREMITIES: Tenderness over the left knee, no swelling, FROM. NEURO: Alert and oriented x 3. No acute neurological deficits. Speech is normal and follows commands. SKIN: Dry and warm Triage Information Reviewed: Yes Vital Signs On Initial Exam: Initial Vitals Temp Pulse Resp BP Pulse Ox 97.1 F 101 18 141/102 96 09/09/17 02:05 09/09/17 02:05 09/09/17 02:05 09/09/17 02:05 09/09/17 02:05 Vital Signs Reviewed: Yes Diagnostics - Vital Signs Vital Signs Temp Pulse Resp BP Pulse Ox 09/09/17 02:05 97.1 F 101 18 141/102 96 - Laboratory Lab Statement: Any lab studies that have been ordered have been reviewed, and results considered in the medical decision making process. - Radiology Knee Radiology Interpretation Completed By: ED Physician - Negative. Pending official report. Lower Extremity Course/Dx - Course Course Of Treatment: 57 year old F presenting to [facility] complains of bilateral "bottom of feet pain for 2 days. Knee xray is negative. Pt will be discharged with prescription and followup from PCP in 1-2 days. - Diagnoses Provider Diagnoses: Left knee pain Discharge - Sign-Out/Discharge Documenting (check all that apply): Discharge/Admit/Transfer - Discharge Plan Condition: Stable Disposition: HOME Prescriptions: traMADol TAB* [Ultram*] 50 mg PO Q6HR PRN #14 tab MDD 4 PRN Reason: Pain Patient Education Materials: Knee Pain (ED) Referrals: Antione Dasilva MD [Primary Care Provider] - 2 Days Additional Instructions: Follow up with your primary care provider in 1-2 days. Return to the Emergency Department for any new or worsening symptoms. The documentation as recorded by the Orlando pelletier Tiffany accurately reflects the service I personally performed and the decisions made by , Erika Escobar MD.
--- NOTE | 2017-09-09 08:17 | RAD ---
Indication: LEFT knee pain post fall one week ago. Comparison: No relevant prior exams available on the [facility] PACS for comparison. Technique: LEFT knee: AP, tunnel, lateral, sunrise views. Report: Trace fluid in the suprapatella recess. Negative for fracture or malalignment. Minimal osteophytosis and mild medial joint space narrowing. Mild anterior soft tissue swelling. IMPRESSION: 1. Mild anterior soft tissue swelling. 2. Minimal joint effusion. 3. Osteoarthritis with mild medial joint space narrowing.
== END 2017-09-09 03:15 | disposition home or self-care (01) ==
LOC: ED 02:03
DX: M25.562 Pain in left knee (principal); Z72.0 Tobacco use; F31.9 Bipolar disorder, unspecified; I10 Essential (primary) hypertension; J45.909 Unspecified asthma, uncomplicated; M17.12 Unilateral primary osteoarthritis, left knee
CPT/HCPCS: 99282; A9270-GY

== ENCOUNTER 2017-09-30 05:12 | Emergency (ER) | payer OTHER ==
[2017-09-30 05:20] VITALS: BP 113/71
--- NOTE | 2017-09-30 06:04 | ED ---
Lower Extremity - HPI Summary HPI Summary: Patient is a 57-year-old female presenting to the ED with complaint of bilateral knee pain which has been present for many years but has been progressively worsening over the past several months. She denies any excess walking or other exercise. She denies any changes. Denies any falls or injuries. She was recently seen here in the ED for similar and x-rays obtained which show osteoarthritis with a mild joint effusion in the suprapatellar area. She has not been taking ibuprofen or using ice, however she has been using an [id number] muscle rub. She denies any other pain or complaints at this time. She states in the past she has been using gabapentin, but states that is no longer working for her. Symptoms are aggravated with nothing, alleviated with nothing. Pain is not worse with ambulation or better with rest. - History of Current Complaint Chief Complaint: EDExtremityLower Stated Complaint: KNEE PAIN Time Seen by Provider: 09/30/17 05:39 Hx Obtained From: Patient Mechanism Of Injury: Other - none known Onset/Duration: Still Present Severity Initially: Moderate Severity Currently: Moderate Pain Intensity: 5 Pain Scale Used: 0-10 Numeric Timing: Constant Location: Is Discrete @ - bilateral knee Character Of Pain: Aching Associated Signs And Symptoms: Positive: Knee Pain. Negative: Swelling, Redness , Bruising, Weakness, Dizziness Alleviating Factor(s): Rest Able to Bear Weight: No - Risk Factors Gout Risk Factors: Negative DVT Risk Factors: Negative Septic Arthritis Risk Factor: Negative - Allergies/Home Medications Allergies/Adverse Reactions: Allergies Allergy/AdvReac Type Severity Reaction Status Date / Time midazolam [From Versed] Allergy Unknown Verified 09/30/17 05:15 Reaction Details oxycodone AdvReac Itching Verified 09/30/17 05:15 PMH/Surg Hx/FS Hx/Imm Hx Previously Healthy: Yes Endocrine/Hematology History: Reports: Other Endocrine/Hematological Disorders - herpes Denies: Hx Anticoagulant Therapy, Hx Blood Disorders, Hx Unexplained Bleeding Cardiovascular History: Reports: Hx Hypertension - ON MEDS Respiratory History: Reports: Hx Asthma GI History: Reports: Other GI Disorders - Hep C Neurological History: Reports: Other Neuro Impairments/Disorders - PT STATES FAMILY HX SCIATICA Psychiatric History: Reports: Hx Bipolar Disorder - Surgical History Surgery Procedure, Year, and Place: appendix; tubal ligation - Immunization History Date of Tetanus Vaccine: unk Date of Influenza Vaccine: fall 2016 Hx Pertussis Vaccination: No Immunizations Up to Date: Unable to Obtain/Confirm Infectious Disease History: No Infectious Disease History: Reports: Hx Hepatitis - C, Hx Human Immunodeficiency Virus (HIV) - on meds Denies: Traveled Outside the [place] in Last 30 Days - Family History Known Family History: Positive: Hypertension, Diabetes - Social History Occupation: Unemployed Lives: With Family Alcohol Use: Rare Alcohol Amount: 1 beer last night Hx Substance Use: Yes Substance Use Type: Reports: Marijuana Substance Use Comment - Amount & Last Used: daily Hx Tobacco Use: Yes Smoking Status (MU): Light Every Day Tobacco Smoker Review of Systems Constitutional: Negative Negative: Fever, Chills, Fatigue Cardiovascular: Negative Respiratory: Negative Negative: Shortness Of Breath, Cough Positive: Arthralgia, Myalgia Skin: Negative Neurological: Negative All Other Systems Reviewed And Are Negative: Yes Physical Exam Triage Information Reviewed: Yes Vital Signs On Initial Exam: Initial Vitals Temp Pulse Resp BP Pulse Ox 98 F 94 16 113/71 96 09/30/17 05:19 09/30/17 05:19 09/30/17 05:19 09/30/17 05:19 09/30/17 05:19 Vital Signs Reviewed: Yes Appearance: Positive: Well-Appearing, Well-Nourished Skin: Positive: Warm, Skin Color Reflects Adequate Perfusion Head/Face: Positive: Normal Head/Face Inspection Neck: Positive: Supple, No Lymphadenopathy Respiratory/Lung Sounds: Positive: Clear to Auscultation, Breath Sounds Present Cardiovascular: Positive: RRR, Pulses are Symmetrical in both Upper and Lower Extremities Musculoskeletal: Positive: Pain @ - bilateral. Negative: Edema Left, Edema Right Neurological: Positive: Speech Normal Psychiatric: Positive: Normal, Affect/Mood Appropriate AVPU Assessment: Alert Diagnostics - Vital Signs Vital Signs Temp Pulse Resp BP Pulse Ox 09/30/17 05:19 98 F 94 16 113/71 96 - Laboratory Lab Statement: Any lab studies that have been ordered have been reviewed, and results considered in the medical decision making process. Lower Extremity Course/Dx - Course Course Of Treatment: Patient is evaluated for bilateral knee pain. History of osteoarthritis in the knees and was recently x-rayed. I discussed this with the patient. I will not re-x-ray at this time as she does not have an injury or has sustained any falls. I've encouraged her to take a short course of ibuprofen for the inflammation. There is no erythema or warmth to the bilateral knees to suggest infection. Vital signs are stable. She will be referred to orthopedics for further evaluation and to discuss other treatment options. - Diagnoses Provider Diagnoses: Osteoarthritis of knee Discharge - Sign-Out/Discharge Documenting (check all that apply): Discharge/Admit/Transfer - Discharge Plan Condition: Stable Disposition: HOME Prescriptions: Ibuprofen 600 mg PO TID PRN #30 tablet MDD 3 PRN Reason: Pain Patient Education Materials: Osteoarthritis (ED) Referrals: Antione Dasilva MD [Primary Care Provider] - Clarita Warner MD [Medical Doctor] - Additional Instructions: If you continue to have symptoms, please follow up with orthopedics to discuss your options. As discussed, ice to the area will help in the short term Ibuprofen 600mg three times daily for a max of 5 days. Then you must take at least a 5 day break. "Sultana Milk" - you can google the youtube video of how to make this. Drinking this daily may help with the inflammatory properties Continue to move, but get adequate rest for your knees when painful - Billing Disposition and Condition Condition: STABLE Disposition: Home
== END 2017-09-30 06:08 | disposition home or self-care (01) ==
LOC: ED 05:12
DX: M17.0 Bilateral primary osteoarthritis of knee (principal); I10 Essential (primary) hypertension; F17.200 Nicotine dependence, unspecified, uncomplicated; Z21 Asymptomatic human immunodeficiency virus [HIV] infection status; Z79.899 Other long term (current) drug therapy; Z86.19 Personal history of other infectious and parasitic diseases; Z88.5 Allergy status to narcotic agent; Z88.8 Allergy status to other drugs, medicaments and biological substances
CPT/HCPCS: 99282

== ENCOUNTER 2017-10-03 18:24 | Emergency (ER) | payer OTHER ==
--- NOTE | 2017-10-03 20:25 | RAD ---
INDICATION: Right knee pain COMPARISON: None TECHNIQUE: 4 view radiograph of the right knee. FINDINGS: The visualized bones are well-corticated and properly aligned. The joint spaces are properly maintained. There is no radiographic evidence of joint effusion. There is no acute fracture, dislocation or other focal bony abnormality. IMPRESSION: Normal knee radiograph as described above. If the patient's symptoms persist, follow-up imaging is recommended.
--- NOTE | 2017-10-03 20:35 | ED ---
Lower Extremity - HPI Summary HPI Summary: Patient complains of right knee pain 3 days. Patient ambulatory without limp. Pain described as intermittent, worse with flexion. History of same pain in left knee with multiple evaluations here in this ED. Denies trauma, fever, N/V , loss of function or sensation distally, back pain. - History of Current Complaint Chief Complaint: EDExtremityLower Stated Complaint: RT KNEE PAIN Time Seen by Provider: 10/03/17 19:21 Hx Obtained From: Patient Onset of Pain: Days Onset/Duration: Days Pain Intensity: 10 Pain Scale Used: 0-10 Numeric Timing: Intermittent Associated Signs And Symptoms: Positive: Knee Pain - Allergies/Home Medications Allergies/Adverse Reactions: Allergies Allergy/AdvReac Type Severity Reaction Status Date / Time midazolam [From Versed] Allergy Unknown Verified 10/03/17 18:32 Reaction Details oxycodone AdvReac Itching Verified 10/03/17 18:32 PMH/Surg Hx/FS Hx/Imm Hx Endocrine/Hematology History: Reports: Other Endocrine/Hematological Disorders - herpes Denies: Hx Anticoagulant Therapy, Hx Blood Disorders, Hx Unexplained Bleeding Cardiovascular History: Reports: Hx Hypertension - ON MEDS Respiratory History: Reports: Hx Asthma GI History: Reports: Other GI Disorders - Hep C EENT History: Denies: Hx Deafness Neurological History: Reports: Other Neuro Impairments/Disorders - PT STATES FAMILY HX SCIATICA Psychiatric History: Reports: Hx Bipolar Disorder - Surgical History Surgery Procedure, Year, and Place: appendix; tubal ligation - Immunization History Date of Tetanus Vaccine: unk Date of Influenza Vaccine: fall 2016 Infectious Disease History: No Infectious Disease History: Reports: Hx Hepatitis - C, Hx Human Immunodeficiency Virus (HIV) - on meds Denies: Traveled Outside the [place] in Last 30 Days - Family History Known Family History: Positive: Hypertension, Diabetes - Social History Alcohol Use: None Alcohol Amount: 1 beer last night Hx Substance Use: Yes Substance Use Type: Reports: None Substance Use Comment - Amount & Last Used: daily Hx Tobacco Use: Yes Smoking Status (MU): Former Smoker Review of Systems Constitutional: Negative Eyes: Negative ENT: Negative Cardiovascular: Negative Respiratory: Negative Gastrointestinal: Negative Genitourinary: Negative Positive: Arthralgia Skin: Negative Neurological: Negative Psychological: Normal All Other Systems Reviewed And Are Negative: Yes Physical Exam - Summary Physical Exam Summary: Full range of motion of right knee, with pain at extremes of flexion. No swelling, ecchymosis, erythema, extra warmth, deformity noted to right knee. Calf soft nontender. Full range of motion of right ankle without pain. Mildly tender to palpation Triage Information Reviewed: Yes Vital Signs On Initial Exam: Initial Vitals Temp Pulse Resp BP Pulse Ox 96.7 F 100 19 123/79 95 10/03/17 18:28 10/03/17 18:28 10/03/17 18:28 10/03/17 18:28 10/03/17 18:28 Vital Signs Reviewed: Yes Appearance: Positive: Well-Appearing Skin: Positive: Warm Head/Face: Positive: Normal Head/Face Inspection Eyes: Positive: Normal Neck: Positive: Supple Respiratory/Lung Sounds: Positive: Clear to Auscultation Cardiovascular: Positive: Normal Abdomen Description: Positive: Nontender Musculoskeletal: Positive: Normal Neurological: Positive: Normal Psychiatric: Positive: Normal AVPU Assessment: Alert - Sam Coma Scale Best Eye Response: 4 - Spontaneous Best Motor Response: 6 - Obeys Commands Best Verbal Response: 5 - Oriented Coma Scale Total: 15 Diagnostics - Vital Signs Vital Signs Temp Pulse Resp BP Pulse Ox 10/03/17 18:28 96.7 F 100 19 123/79 95 - Laboratory Lab Statement: Any lab studies that have been ordered have been reviewed, and results considered in the medical decision making process. - Radiology knee Xray Interpretation: No Acute Changes Radiology Interpretation Completed By: Radiologist Lower Extremity Course/Dx - Diagnoses Provider Diagnoses: Knee pain, right Discharge - Sign-Out/Discharge Documenting (check all that apply): Discharge/Admit/Transfer - Discharge Plan Condition: Stable Disposition: HOME Patient Education Materials: Knee Pain (ED) Referrals: Antione Dasilva MD [Primary Care Provider] - Carri Stanley MD [Medical Doctor] - Additional Instructions: Tylenol or ibuprofen for knee pain. Follow-up with orthopedics Dr. Stanley for knee pain. Return to the ED for any new or worsening symptoms - Billing Disposition and Condition Condition: STABLE Disposition: Home
[2017-10-03 21:11] VITALS: BP 141/102
== END 2017-10-03 21:09 | disposition home or self-care (01) ==
LOC: ED 18:24
DX: M25.561 Pain in right knee (principal); I10 Essential (primary) hypertension; B19.20 Unspecified viral hepatitis C without hepatic coma; Z21 Asymptomatic human immunodeficiency virus [HIV] infection status; Z79.899 Other long term (current) drug therapy; Z87.891 Personal history of nicotine dependence; Z88.5 Allergy status to narcotic agent; Z88.8 Allergy status to other drugs, medicaments and biological substances
CPT/HCPCS: 99282

== ENCOUNTER 2017-10-13 22:35 | Emergency (ER) | payer OTHER ==
--- OUTSIDE RECORDS SUMMARY | 2017-10-13 23:02 | XMS REPORT ---
:1960 External Reference #:[id number] Author Organization [employer] Address [address] [place] [address] Phone [phone] Care Team Providers Name Role Phone Antione Dasilva MD Primary Care Physician Unavailable Payers Type Date Identification Numbers Payment Provider Subscriber Commercial Policy Number: [id number] Zach Bowman Group Name: [id number] [address] PayID: [id number] [place] [address] Problems Description No Information Family History Date Family Member(s) Problem(s) Comments General Diabetes Social History Type Date Description Comments 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 Occasionally consumes alcohol Smoking Patient is a current smoker, smokes every day Exercise Type/Frequency Does not exercise Allergies, Adverse Reactions, Alerts Date Description Reaction Status Severity Comments 08/03/2013 NKDA active Medications Medication Date Status Form Strength Qnty SIG Indications Ordering Provider Viread Active 300mg Unknown Prezista Active 600mg Unknown Norvir Active 100mg Unknown Isentress Active 400mg Unknown Valtrex Active 1GR Unknown Risperidone Active 2mg Unknown Lamotrigine ER Active 100mg Unknown Pravastatin Sodium Active 10mg Unknown Montelukast Sodium Active 10mg Unknown Flovent Diskus Active Unknown Hydroxyzine HCL Active 25mg Unknown Proair HFA Active Unknown Vitamin D3 Super Active Unknown Strength Docusate Sodium Active 100mg Unknown Omeprazole Active 20mg Unknown Ondansetron HCL Active 8mg Unknown Vital Signs Date Vital Result Comment 10/06/2017 Height 65 inches 5'5" Weight 235.00 lb BP Systolic Sitting 138 mmHg BP Diastolic Sitting 88 mmHg Respiratory Rate 16 /min Body Temperature 98.6 F Pain Level 10 BMI (Body Mass Index) 39.1 kg/m2 08/03/2013 Height 65 inches 5'5" Weight 196.00 lb Heart Rate 79 /min BP Systolic 150 mmHg BP Diastolic 98 mmHg BMI (Body Mass Index) 32.6 kg/m2 Results Description No Information Procedures Date CPT Code Description Status 10/06/2017 94016 Inject/Drain Joint/Bursa Major W/O US Completed 08/03/2013 46654 FX Metatarsal Care Completed Plan of Care Future Appointment(s):11/17/2017 10:00 am - Carri Stanley MD at [facility]10/06/2017 - Carri Stanley, [id number] Pain in left kneeNew Xrays:Knee 3 Views [id number] Effusion, left kneeM17.12 Unilateral primary osteoarthritis, left kneeFollow up:Follow up: 6 bbvjiG04.11 Unilateral primary osteoarthritis, right knee
[2017-10-13] MEDS ORDERED: Meclizine TAB* 12.5 MG PO ONE (23:54)
--- NOTE | 2017-10-14 00:58 | ED ---
Raza Gabriel Angela, scribed for Erika Escobar MD on 10/14/17 at 0005 . Dizziness - HPI Summary HPI Summary: This pt is a 57 y/o female presenting to [facility] c/o dizziness since last night. Pt reports she has a hx of vertigo and the last time she had this was 2 years ago. She does not take any medications for vertigo. Pt describes dizziness as room spinning. Dizziness is alleviated with closing her eyes and it is aggravated with position change. Denies nausea, vomiting, chest pain, SOB. - History Of Current Complaint Chief Complaint: EDDizziness Stated Complaint: POSS VERTIGO Hx Obtained From: Patient Onset/Duration: Still Present Timing: Days Severity Currently: Moderate Character: Room Spinning, Dizzy Aggravating Factor(s): Position Change Alleviating Factor(s): Closing Eyes Associated Signs And Symptoms: Negative: Nausea, Vomiting, Chest Pain, SOB, Fever - Allergies/Home Medications Allergies/Adverse Reactions: Allergies Allergy/AdvReac Type Severity Reaction Status Date / Time midazolam [From Versed] Allergy Unknown Verified 10/03/17 18:32 Reaction Details oxycodone AdvReac Itching Verified 10/03/17 18:32 PMH/Surg Hx/FS Hx/Imm Hx Endocrine/Hematology History: Reports: Other Endocrine/Hematological Disorders - herpes Denies: Hx Anticoagulant Therapy, Hx Blood Disorders, Hx Unexplained Bleeding Cardiovascular History: Reports: Hx Hypertension - ON MEDS Respiratory History: Reports: Hx Asthma GI History: Reports: Other GI Disorders - Hep C Sensory History: Denies: Hx Deafness Neurological History: Reports: Other Neuro Impairments/Disorders - PT STATES FAMILY HX SCIATICA Psychiatric History: Reports: Hx Bipolar Disorder - Surgical History Surgery Procedure, Year, and Place: appendix; tubal ligation - Immunization History Date of Tetanus Vaccine: unk Date of Influenza Vaccine: fall 2016 Infectious Disease History: No Infectious Disease History: Reports: Hx Hepatitis - C, Hx Human Immunodeficiency Virus (HIV) - on meds Denies: Traveled Outside the [place] in Last 30 Days - Family History Known Family History: Positive: Hypertension, Diabetes - Social History Alcohol Use: None Alcohol Amount: 1 beer last night Hx Substance Use: Yes Substance Use Type: Reports: None Substance Use Comment - Amount & Last Used: daily Hx Tobacco Use: Yes Smoking Status (MU): Former Smoker Review of Systems Negative: Fever, Chills Negative: Chest Pain Negative: Shortness Of Breath Negative: Vomiting, Nausea Neurological: Other - POS: dizziness All Other Systems Reviewed And Are Negative: Yes Physical Exam - Summary Physical Exam Summary: VITAL SIGNS: Reviewed. GENERAL: Patient is a well-developed and nourished female who is lying comfortable in the stretcher. Patient is not in any acute respiratory distress. HEAD AND FACE: No signs of trauma. No ecchymosis, hematomas or skull depressions. No sinus tenderness. EYES: PERRLA, EOMI x 2, No injected conjunctiva, no nystagmus. EARS: Hearing grossly intact. Ear canals and tympanic membranes are within normal limits. MOUTH: Oropharynx within normal limits. NECK: Supple, trachea is midline, no adenopathy, no JVD, no carotid bruit, no c- spine tenderness, neck with full ROM. CHEST: Symmetric, no tenderness at palpation LUNGS: Clear to auscultation bilaterally. No wheezing or crackles. CVS: Regular rate and rhythm, S1 and S2 present, no murmurs or gallops appreciated. ABDOMEN: Soft, non-tender. No signs of distention. No rebound no guarding, and no masses palpated. Bowel sounds are normal. EXTREMITIES: FROM in all major joints, no edema, no cyanosis or clubbing. NEURO: Alert and oriented x 3. No acute neurological deficits. Speech is normal and follows commands. Dizziness is induced with eye movement and changing position. SKIN: Dry and warm Triage Information Reviewed: Yes Vital Signs On Initial Exam: Initial Vitals Temp Pulse Resp BP Pulse Ox 97.7 F 91 20 143/89 96 10/13/17 22:43 10/13/17 22:43 10/13/17 22:43 10/13/17 22:43 10/13/17 22:43 Vital Signs Reviewed: Yes Diagnostics - Vital Signs Vital Signs Temp Pulse Resp BP Pulse Ox 10/13/17 22:43 97.7 F 91 20 143/89 96 - Laboratory Lab Statement: Any lab studies that have been ordered have been reviewed, and results considered in the medical decision making process. Re-Evaluation - Re-Evaluation First Eval Re-Evaluation Time: 00:46 Change: Improved Comment: Pt reports feeling better. She will be discharged home. Dizzy Course/Dx - Course Assessment/Plan: Pt is a 57 y/o female who presents with dizziness since last night. Pt reports she has a hx of vertigo and the last time she had this was 2 years ago. She does not take any medications for vertigo. Pt describes dizziness as room spinning. Dizziness is alleviated with closing her eyes and it is aggravated with position change. Denies nausea, vomiting, chest pain, SOB. Pt has hx of vertigo. Neurological exam is normal. In the ED course the pt was given Meclizine. After this medication, pt reports feeling better. She will be discharged home with a prescription for Meclizine. Pt is instructed to return to the ED for any worsening symptoms. - Diagnoses Provider Diagnoses: Vertigo Discharge - Sign-Out/Discharge Documenting (check all that apply): Discharge/Admit/Transfer - Discharge - Discharge Plan Condition: Stable Disposition: HOME Prescriptions: Meclizine TAB* [Antivert 12.5 TAB*] 25 mg PO TID PRN #30 tab PRN Reason: Dizziness Patient Education Materials: Vertigo (ED) Referrals: Antione Dasilva MD [Primary Care Provider] - Additional Instructions: Please follow up with your primary care provider. RETURN TO EMERGENCY DEPARTMENT FOR ANY NEW OR WORSENING SYMPTOMS. The documentation as recorded by the Raza pelletier Angela accurately reflects the service I personally performed and the decisions made by me, Erika Escobar MD.
[2017-10-14 01:04] VITALS: BP 156/78
== END 2017-10-14 01:02 | disposition home or self-care (01) ==
LOC: ED 22:35
DX: R42 Dizziness and giddiness (principal); Z87.891 Personal history of nicotine dependence
CPT/HCPCS: 99282; A9270-GY

== ENCOUNTER 2017-10-17 20:08 | Emergency (ER) | payer OTHER ==
[2017-10-17 21:16] VITALS: BP 131/90
--- NOTE | 2017-10-17 21:19 | ED ---
Dizziness - HPI Summary HPI Summary: Patient is a 57-year-old female presenting to the ED with a request for medication refill. History of vertigo. States she has been unable to see Dr. Dasilva until another 2 weeks. She states her vertigo is intermittent, most recent episode beginning 3 days ago. She is concerned due to only having 4 tablets left. She states she is otherwise feeling at her baseline. Denies any signs of systemic illness, fevers, sweats, chills or headache. Denies any visual changes. - History Of Current Complaint Chief Complaint: EDGeneral Stated Complaint: DIZZY Time Seen by Provider: 10/17/17 20:53 Hx Obtained From: Patient Onset/Duration: Resolved Timing: Constant Severity Initially: Mild Severity Currently: Mild Character: Dizzy Aggravating Factor(s): Nothing Alleviating Factor(s): Other - meclizine Associated Signs And Symptoms: Positive: Negative - Risk Factors Cardiac Risk Factors: Negative CVA Risk Factor: Negative - Allergies/Home Medications Allergies/Adverse Reactions: Allergies Allergy/AdvReac Type Severity Reaction Status Date / Time midazolam [From Versed] Allergy Unknown Verified 10/03/17 18:32 Reaction Details oxycodone AdvReac Itching Verified 10/03/17 18:32 PMH/Surg Hx/FS Hx/Imm Hx Previously Healthy: Yes Endocrine/Hematology History: Reports: Other Endocrine/Hematological Disorders - herpes Denies: Hx Anticoagulant Therapy, Hx Blood Disorders, Hx Unexplained Bleeding Cardiovascular History: Reports: Hx Hypertension - ON MEDS Respiratory History: Reports: Hx Asthma GI History: Reports: Other GI Disorders - Hep C Sensory History: Denies: Hx Deafness Neurological History: Reports: Other Neuro Impairments/Disorders - PT STATES FAMILY HX SCIATICA Psychiatric History: Reports: Hx Bipolar Disorder - Surgical History Surgery Procedure, Year, and Place: appendix; tubal ligation - Immunization History Date of Tetanus Vaccine: unk Date of Influenza Vaccine: fall 2016 Hx Pertussis Vaccination: No Immunizations Up to Date: Unable to Obtain/Confirm Infectious Disease History: No Infectious Disease History: Reports: Hx Hepatitis - C, Hx Human Immunodeficiency Virus (HIV) - on meds Denies: Traveled Outside the [place] in Last 30 Days - Family History Known Family History: Positive: Hypertension, Diabetes - Social History Occupation: Unemployed Lives: With Family Alcohol Use: None Alcohol Amount: 1 beer last night Hx Substance Use: Yes Substance Use Type: Reports: None Substance Use Comment - Amount & Last Used: daily Hx Tobacco Use: Yes Smoking Status (MU): Light Every Day Tobacco Smoker Review of Systems Constitutional: Negative Negative: Fever, Chills, Fatigue, Skin Diaphoresis Negative: Epistaxis, Dental Pain Negative: Palpitations, Chest Pain Genitourinary: Negative Positive: no symptoms reported, see HPI Negative: Arthralgia, Myalgia Skin: Negative Neurological: Other - dizziness - none current All Other Systems Reviewed And Are Negative: Yes Physical Exam Triage Information Reviewed: Yes Vital Signs On Initial Exam: Initial Vitals Temp Pulse Resp BP Pulse Ox 98.2 F 91 20 134/90 95 10/17/17 20:23 10/17/17 20:23 10/17/17 20:23 10/17/17 20:23 10/17/17 20:23 Vital Signs Reviewed: Yes Appearance: Positive: No Pain Distress Skin: Positive: Warm, Skin Color Reflects Adequate Perfusion Head/Face: Positive: Normal Head/Face Inspection Eyes: Positive: EOMI, NEDRA, Conjunctiva Clear Neck: Positive: Supple, No Lymphadenopathy Respiratory/Lung Sounds: Positive: Clear to Auscultation, Breath Sounds Present Cardiovascular: Positive: RRR, Pulses are Symmetrical in both Upper and Lower Extremities Musculoskeletal: Positive: Normal, Strength/ROM Intact Neurological: Positive: Speech Normal Psychiatric: Positive: Normal, Affect/Mood Appropriate AVPU Assessment: Alert Diagnostics - Vital Signs Vital Signs Temp Pulse Resp BP Pulse Ox 10/17/17 21:15 98.9 F 95 18 131/90 98 10/17/17 20:23 98.2 F 91 20 134/90 95 - Laboratory Lab Statement: Any lab studies that have been ordered have been reviewed, and results considered in the medical decision making process. Dizzy Course/Dx - Course Course Of Treatment: On physical examination, patient appears well and in no acute distress. Lungs CTA. RRR. No dizziness currently per patient. She requests a medication refill of her meclizine. She has a follow-up with Dr. Dasilva in 2 weeks. I have agreed to refill her meclizine at this time. - Diagnoses Provider Diagnoses: Dizziness, Medication refill Discharge - Sign-Out/Discharge Documenting (check all that apply): Discharge/Admit/Transfer - Discharge Plan Condition: Stable Disposition: HOME Prescriptions: Meclizine TAB* [Antivert 12.5 TAB*] 25 mg PO TID PRN #30 tab PRN Reason: Vertigo Referrals: Antione Dasilva MD [Primary Care Provider] - - Billing Disposition and Condition Condition: STABLE Disposition: Home
== END 2017-10-17 21:15 | disposition home or self-care (01) ==
LOC: ED 20:08
DX: R42 Dizziness and giddiness (principal); Z76.0 Encounter for issue of repeat prescription; F17.210 Nicotine dependence, cigarettes, uncomplicated
CPT/HCPCS: 99282

== ENCOUNTER 2018-01-10 19:36 | Emergency (ER) | payer OTHER ==
[2018-01-10] MEDS ORDERED: oxyCODONE/Acetamin 5/325 MG* TAB PO ONE (20:38)
[2018-01-10] MEDS ORDERED: traMADol TAB* 50 MG PO ONE (20:39)
--- NOTE | 2018-01-10 20:47 | ED ---
Lower Extremity - HPI Summary HPI Summary: This patient is a 57 year old F presenting to [facility] with a chief complaint of left knee pain since this AM s/p a fall. She notes she fell onto her left knee outside of her house, and denies rx blood thinners. She endorses swelling of the knee, and that she is able to ambulate and bend her knee, but both actions elicit pain. - History of Current Complaint Chief Complaint: EDExtremityLower Stated Complaint: FALL/LT KNEE INJURY Time Seen by Provider: 01/10/18 20:29 Hx Obtained From: Patient Mechanism Of Injury: Fall From A Standing Position Onset of Pain: Immediate Onset/Duration: Still Present Severity Initially: Moderate Severity Currently: Moderate Pain Intensity: 8 Pain Scale Used: 0-10 Numeric Timing: Constant Location: Is Discrete @ - L knee Associated Signs And Symptoms: Positive: Swelling, Knee Pain Aggravating Factor(s): Ambulation, Other - bending Able to Bear Weight: Yes - Allergies/Home Medications Allergies/Adverse Reactions: Allergies Allergy/AdvReac Type Severity Reaction Status Date / Time midazolam [From Versed] Allergy Unknown Verified 01/10/18 19:44 Reaction Details oxycodone AdvReac Itching Verified 01/10/18 19:44 PMH/Surg Hx/FS Hx/Imm Hx Endocrine/Hematology History: Reports: Other Endocrine/Hematological Disorders - herpes Denies: Hx Anticoagulant Therapy, Hx Blood Disorders, Hx Unexplained Bleeding Cardiovascular History: Reports: Hx Hypertension - ON MEDS Respiratory History: Reports: Hx Asthma GI History: Reports: Other GI Disorders - Hep C Sensory History: Denies: Hx Legally Blind, Hx Deafness Opthamlomology History: Denies: Hx Legally Blind EENT History: Denies: Hx Deafness Psychiatric History: Reports: Hx Bipolar Disorder - Surgical History Surgery Procedure, Year, and Place: appendix; tubal ligation - Immunization History Date of Tetanus Vaccine: unk Date of Influenza Vaccine: fall 2016 Infectious Disease History: No Infectious Disease History: Reports: Hx Hepatitis - C, Hx Human Immunodeficiency Virus (HIV) - on meds Denies: Traveled Outside the [place] in Last 30 Days - Family History Known Family History: Positive: Hypertension, Diabetes, Other - sciatica - Social History Alcohol Use: None Alcohol Amount: 1 beer last night Hx Substance Use: Yes Substance Use Type: Reports: Marijuana Substance Use Comment - Amount & Last Used: daily Hx Tobacco Use: Yes Smoking Status (MU): Light Every Day Tobacco Smoker Review of Systems Negative: Fever Positive: no symptoms reported Positive: Arthralgia - L knee, Decreased ROM - L knee, Edema - L knee All Other Systems Reviewed And Are Negative: Yes Physical Exam - Summary Physical Exam Summary: VITAL SIGNS: Reviewed. GENERAL: Patient is a well-developed and nourished female who is lying comfortable in the stretcher. Patient is not in any acute respiratory distress. HEAD AND FACE: No signs of trauma. No ecchymosis, hematomas or skull depressions. No sinus tenderness. EYES: PERRLA, EOMI x 2, No injected conjunctiva, no nystagmus. EARS: Hearing grossly intact. Ear canals and tympanic membranes are within normal limits. MOUTH: Oropharynx within normal limits. NECK: Supple, trachea is midline, no adenopathy, no JVD, no carotid bruit, no c- spine tenderness, neck with full ROM. CHEST: Symmetric, no tenderness at palpation LUNGS: Clear to auscultation bilaterally. No wheezing or crackles. CVS: Regular rate and rhythm, S1 and S2 present, no murmurs or gallops appreciated. ABDOMEN: Soft, non-tender. No signs of distention. No rebound no guarding, and no masses palpated. Bowel sounds are normal. EXTREMITIES: Tenderness and mild swelling over the left knee, with increasing pain beyond flexion of 60 degrees. Neurovascular exam intact. No cyanosis or clubbing. NEURO: Alert and oriented x 3. No acute neurological deficits. Speech is normal and follows commands. SKIN: Dry and warm Triage Information Reviewed: Yes Vital Signs On Initial Exam: Initial Vitals Temp Pulse Resp BP Pulse Ox 96.6 F 97 18 139/81 97 01/10/18 19:42 01/10/18 19:42 01/10/18 19:42 01/10/18 19:42 01/10/18 19:42 Vital Signs Reviewed: Yes Diagnostics - Vital Signs Vital Signs Temp Pulse Resp BP Pulse Ox 01/10/18 19:42 96.6 F 97 18 139/81 97 - Laboratory Lab Statement: Any lab studies that have been ordered have been reviewed, and results considered in the medical decision making process. - Radiology Left knee XR Xray Interpretation: Positive (See Comments) Radiology Interpretation Completed By: ED Physician - Minimal effusion, no fx. Pending official imaging report. Lower Extremity Course/Dx - Course Course Of Treatment: A 57-year-old F presents to the ED with a CC of L knee pain s/p a fall this AM. (+) swelling, DROM, pain with ambulation. A left knee XR reveals minimal effusion, no fx. In the ED course, pt was given percocet and ultram. - Diagnoses Provider Diagnoses: Left knee sprain Discharge - Sign-Out/Discharge Documenting (check all that apply): Patient Departure - discharge - Discharge Plan Condition: Stable Disposition: HOME Patient Education Materials: Knee Sprain (ED) Referrals: Clarita Warner MD [Medical Doctor] - 2 Days Additional Instructions: Return to the emergency department for any new or worsening symptoms. Follow up with orthopedics in 1-2 days, contact information provided. - Attestation Statements Document Initiated by Scribe: Yes Documenting Scribe: Stanley Shelton Provider For Whom Scribe is Documenting (Include Credential): Dr. Erika Escobar MD Scribe Attestation: Stanley Gabriel, scribed for Dr. Erika Escobar MD on 01/10/18 at 2112.
[2018-01-10 21:37] VITALS: BP 133/83
--- NOTE | 2018-01-11 07:50 | RAD ---
HISTORY: pain/fall COMPARISONS: September 09, 2017 VIEWS: 4 , Frontal, lateral, axial, and oblique views of the left knee FINDINGS: BONE DENSITY: Normal. BONES: There is no displaced fracture. JOINTS: There is no arthropathy. There is a trace suprapatellar joint effusion, without lipohemarthrosis. ALIGNMENT: There is no dislocation. SOFT TISSUES: Unremarkable. OTHER FINDINGS: None. IMPRESSION: NO ACUTE OSSEOUS INJURY. IF SYMPTOMS PERSIST, RECOMMEND REPEAT IMAGING. R0
== END 2018-01-10 21:35 | disposition home or self-care (01) ==
LOC: ED 19:36
DX: S83.92XA Sprain of unspecified site of left knee, initial encounter (principal); M25.562 Pain in left knee; W19.XXXA Unspecified fall, initial encounter; Y92.9 Unspecified place or not applicable
CPT/HCPCS: 99281; A9270-GY

== ENCOUNTER 2018-03-16 12:13 | Emergency (ER) | payer OTHER ==
--- OUTSIDE RECORDS SUMMARY | 2018-03-16 12:33 | XMS REPORT | Continuity of Care Document ---
:1960 External Reference #:[id number] Author Name Milvia Henley Care Team Providers Name Role Phone Antione Dasilva MD Primary Care Physician Unavailable Payers Type Date Identification Numbers Payment Provider Subscriber Policy Number: [id number] Zach Bowman Group Name: [id number] [address] PayID: [id number] [place] [address] Advance Directives Description No Information Available Problems Date Description Provider Status Onset: 11/17/2017 Localized, primary osteoarthritis Carri Stanley MD Active Family History Date Family Member(s) Problem(s) Comments General Diabetes General Hypertension Social History Type Date Description Comments Sex Unknown Lives With Friend Lives With alone 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 ETOH Use Occasionally consumes alcohol Tobacco Use Start: Unknown Patient is a current smoker, smokes every day Smoking Status Reviewed: 03/01/18 Patient is a current smoker, smokes every day Exercise Type/Frequency Does not exercise Allergies, Adverse Reactions, Alerts Date Description Reaction Status Severity Comments 03/01/2018 Midazolam Active 03/01/2018 Oxycodone Active 08/03/2013 NKDA Inactive Medications Medication Date Status Form Strength Qnty SIG Indications Ordering Provider Norvir Active 100mg Unknown 000 Isentress Active 400mg Unknown 000 Valtrex Active 1GR Unknown 000 Risperidone Active 2mg Unknown 000 Lamotrigine ER Active 100mg Unknown 000 Pravastatin Sodium Active 10mg Unknown 000 Montelukast Sodium Active 10mg Unknown 000 Flovent Diskus Active Unknown 000 Hydroxyzine HCL Active 25mg Unknown 000 Proair HFA Active Unknown 000 Vitamin D3 Super Active Unknown Strength 000 Docusate Sodium Active 100mg Unknown 000 Omeprazole Active 20mg Unknown 000 Ondansetron HCL Active 8mg Unknown 000 Meclizine HCL Active Tablets 12.5mg take 2 Unknown 000 tablets by mouth Up To three times a day if needed for Vertigo Amlodipine Active Unknown Besylate 000 Gabapentin Active as needed Unknown 000 Cyclobenzaprine Active twice a Unknown 000 day Viread Hx 300mg Unknown 000 - 018 Prezista Hx 600mg Unknown 000 - 018 Medications Administered in Office Medication Date Status Form Strength Qnty SIG Indications Ordering Provider Depomedrol 40MG 01/18/ Administered Injection Clarita 2017 Damion Warner Triamcinolone 10/06/ Administered Injection Zaneb (Kenalog) 2017 MD Jaden Immunizations Description No Information Available Vital Signs Date Vital Result Comment 03/01/2018 10:29am Height 65 inches 5'5" Weight 222.00 lb Heart Rate 88 /min BP Systolic 114 mmHg BP Diastolic 78 mmHg BMI (Body Mass Index) 36.9 kg/m2 02/03/2018 10:32am Height 65 inches 5'5" Heart Rate 82 /min BP Systolic 132 mmHg BP Diastolic 80 mmHg Respiratory Rate 18 /min Pain Level 9 01/18/2018 11:18am Height 65 inches 5'5" Weight 223.00 lb Heart Rate 88 /min BP Systolic 132 mmHg BP Diastolic 90 mmHg Body Temperature 98.0 F Pain Level 10 BMI (Body Mass Index) 37.1 kg/m2 11/17/2017 9:32am Height 65 inches 5'5" Weight 235.00 lb BP Systolic 126 mmHg BP Diastolic 66 mmHg Respiratory Rate 20 /min Pain Level 10 BMI (Body Mass Index) 39.1 kg/m2 10/06/2017 11:10am Height 65 inches 5'5" Weight 235.00 lb BP Systolic Sitting 138 mmHg BP Diastolic Sitting 88 mmHg Respiratory Rate 16 /min Body Temperature 98.6 F Pain Level 10 BMI (Body Mass Index) 39.1 kg/m2 08/03/2013 9:16am Height 65 inches 5'5" Weight 196.00 lb Heart Rate 79 /min BP Systolic 150 mmHg BP Diastolic 98 mmHg BMI (Body Mass Index) 32.6 kg/m2 Results Description No Information Available Procedures Date Code Description Status 01/18/2018 Inject/Drain Joint/Bursa Major W/O US Completed 10/06/2017 Inject/Drain Joint/Bursa Major W/O US Completed 08/03/2013 51519 FX Metatarsal Care Completed Encounters Type Date Location Provider Dx Diagnosis Office Visit 02/03/2018 Orthopedic Clarita Warner, M25.562 Pain in left knee 10:15a [facility] M17.0 Bilateral primary osteoarthritis of knee S83.242A Oth tear of medial meniscus, current injury, left knee, init Office Visit 01/18/2018 10:45a [facility] Clarita Warner M25.562 Pain in left Of V[facility]k Bruno knee M17.0 Bilateral primary osteoarthritis of knee M25.462 Effusion, left knee W19.xxxA Unspecified fall, initial encounter Office Visit 11/17/2017 Orthopedic Carri Stanley, M17.12 Unilateral primary 10:00a Services Of osteoarthritis, left NevaehMDeepthi knee M17.11 Unilateral primary osteoarthritis, right knee M17.0 Bilateral primary osteoarthritis of knee Office Visit 10/06/2017 11:00a [facility] Carri Stanley M25.562 Pain in left Of Vivek TENORIO knee M25.462 Effusion, left knee M17.12 Unilateral primary osteoarthritis, left knee M17.11 Unilateral primary osteoarthritis, right knee M25.561 Pain in right knee M17.0 Bilateral primary osteoarthritis of knee Plan of Treatment Future Appointment(s):03/27/2018 10:15 am - Clarita Warner M.D. at [facility]03/30/2018 5:00 pm - Clarita Warner M.D. at [facility]03/01/2018 - Clarita Warner M.D.M25.562 Pain in left kneeFollow up:Follow up: 7-10 days before [id number] Bilateral primary osteoarthritis of knee
[2018-03-16] MEDS ORDERED: Albuterol/Ipratropium NEB.SOL* Albuterol 2.5 MG/Ipratropium 0.5 MG 3 ML INH ONE (12:53)
[2018-03-16 13:17] LABS: ABS Basophils 0.1 10^3/ul (0-0.2); ABS Eosinophils 0.1 10^3/ul (0-0.6); ABS Lymphocytes 1.8 10^3/ul (1.0-4.8); ABS Monocytes 0.4 10^3/ul (0-0.8); ABS Neutrophils 6.4 10^3/ul (1.5-7.7); ABS Nucleated RBC 0 10^3/ul; Eosinophil % 1.1 %; Hematocrit 44 % (35-47); Lymphocyte % 20.3 %; Mean Corpuscular HGB Conc 34 g/dl (31-36); Mean Corpuscular Hemoglobin 32 pg (27-31); Mean Corpuscular Volume 93 fL (80-97); Mean Platelet Volume 8.8 fL (7.4-10.4); Nucleated Red Blood Cells % 0; Platelet Count 243 10^3/ul (150-450); Red Blood Count 4.75 10^6/ul (4.00-5.40); Red Cell Distribution Width 14 % (10.5-15); White Blood Count 8.7 10^3/ul (3.5-10.8)
--- NOTE | 2018-03-16 13:32 | ED ---
Respiratory - HPI Summary HPI Summary: 58-year-old female presents with shortness breath and cough for the last night. She states her cough is productive. She states she's been using some over-the -counter cough medication with minimal relief. States she has history asthma. She admits to some wheezing. She admits to some chest tightness but denies any pain. She denies any fevers. She admits to sore throat and sinus congestion. No abdominal pain. No nausea and no vomiting. Has history of HIV. She is an occasional smoker. Friends are also sick. - History of Current Complaint Chief Complaint: EDShortnessOfBreath Stated Complaint: COUGH/DIFF BREATHING Time Seen by Provider: 03/16/18 12:41 Pain Intensity: 0 Sputum Amount: Scant - Allergy/Home Medications Allergies/Adverse Reactions: Allergies Allergy/AdvReac Type Severity Reaction Status Date / Time midazolam [From Versed] Allergy Unknown Verified 01/23/18 11:31 Reaction Details oxycodone AdvReac Itching Verified 01/23/18 11:31 PMH/Surg Hx/FS Hx/Imm Hx Endocrine/Hematology History: Reports: Hx Diabetes, Other Endocrine/ Hematological Disorders - herpes, hiv Denies: Hx Anticoagulant Therapy, Hx Blood Disorders, Hx Unexplained Bleeding Cardiovascular History: Denies: Hx Hypertension, Hx Pacemaker/ICD Respiratory History: Reports: Hx Asthma GI History: Reports: Other GI Disorders - Hep C History: Denies: Hx Renal Disease Sensory History: Denies: Hx Legally Blind, Hx Deafness, Hx Hearing Aid Opthamlomology History: Denies: Hx Legally Blind Neurological History: Reports: Other Neuro Impairments/Disorders - PT STATES FAMILY HX SCIATICA Psychiatric History: Reports: Hx Bipolar Disorder Denies: Hx Panic Disorder - Surgical History Surgery Procedure, Year, and Place: appendix; tubal ligation - Immunization History Date of Tetanus Vaccine: unk Date of Influenza Vaccine: fall 2016 Infectious Disease History: No Infectious Disease History: Reports: Hx Hepatitis - C, Hx Human Immunodeficiency Virus (HIV) - on meds Denies: Traveled Outside the [place] in Last 30 Days - Family History Known Family History: Positive: Hypertension, Diabetes, Other - sciatica - Social History Alcohol Use: None Alcohol Amount: 1 beer last night Hx Substance Use: Yes Substance Use Type: Reports: Marijuana Substance Use Comment - Amount & Last Used: daily Hx Tobacco Use: Yes Smoking Status (MU): Light Every Day Tobacco Smoker Review of Systems Negative: Fever Positive: Sore Throat, Nasal Discharge Negative: Chest Pain Positive: Shortness Of Breath, Cough Negative: Abdominal Pain All Other Systems Reviewed And Are Negative: Yes Physical Exam Triage Information Reviewed: Yes Vital Signs On Initial Exam: Initial Vitals Temp Pulse Resp BP Pulse Ox 99 F 107 24 128/83 95 03/16/18 12:24 1218 12:24 03/16/18 12:24 03/16/18 12:24 03/16/18 12:24 Vital Signs Reviewed: Yes Appearance: Positive: Well-Appearing Skin: Positive: Warm, Dry Head/Face: Positive: Normal Head/Face Inspection Eyes: Positive: Normal, EOMI, NEDRA, Conjunctiva Clear ENT: Positive: Normal ENT inspection, Pharynx normal, TMs normal Respiratory/Lung Sounds: Positive: Breath Sounds Present, Wheezes Cardiovascular: Positive: Normal, RRR Abdomen Description: Positive: Nontender, Soft Bowel Sounds: Positive: Present Musculoskeletal: Positive: Normal Neurological: Positive: Normal Psychiatric: Positive: Normal Diagnostics - Vital Signs Vital Signs Temp Pulse Resp BP Pulse Ox 03/16/18 13:18 100 16 95 03/16/18 12:24 99 F 107 24 128/83 95 - Laboratory Lab Results: Lab Results 03/16/18 Range/Units 13:03 WBC 8.7 (3.5-10.8) 10^3/ul RBC 4.75 (4.00-5.40) 10^6/ul Hgb 15.0 (12.0-16.0) g/dl Hct 44 (35-47) % MCV 93 (80-97) fL MCH 32 H (27-31) pg MCHC 34 (31-36) g/dl RDW 14 (10.5-15) % Plt Count 243 (150-450) 10^3/ul MPV 8.8 (7.4-10.4) fL Neut % (Auto) 73.4 % Lymph % (Auto) 20.3 % [place] % (Auto) 4.5 % Eos % (Auto) 1.1 % Baso % (Auto) 0.7 % Absolute Neuts (auto) 6.4 (1.5-7.7) 10^3/ul Absolute Lymphs (auto) 1.8 (1.0-4.8) 10^3/ul Absolute Monos (auto) 0.4 (0-0.8) 10^3/ul Absolute Eos (auto) 0.1 (0-0.6) 10^3/ul Absolute Basos (auto) 0.1 (0-0.2) 10^3/ul Absolute Nucleated RBC 0 10^3/ul Nucleated RBC % 0 Result Diagrams: 03/16/18 13:03 03/16/18 13:03 Lab Statement: Any lab studies that have been ordered have been reviewed, and results considered in the medical decision making process. - Radiology chest Radiology Interpretation Completed By: Radiologist Summary of Radiographic Findings: #. Stigmata of obstructive lung disease. No acute pulmonary or cardiac process evident. - EKG No standard instances Cardiac Rate: NL EKG Rhythm: Sinus Rhythm Summary of EKG Findings: sinus rhythm Re-Evaluation - Re-Evaluation First Eval Re-Evaluation Time: 14:50 Change: Improved Comment: feeling better after breathing treatment Disposition - Course Course Of Treatment: 58-year-old female presents with shortness breath and cough for the last night. She states her cough is productive. She states she' s been using some hrun-zlt-ggxkjii cough medication with minimal relief. States she has history asthma. She admits to some wheezing. She admits to some chest tightness but denies any pain. She denies any fevers. She admits to sore throat and sinus congestion. No abdominal pain. No nausea and no vomiting. Has history of HIV. She is an occasional smoker. Friends are also sick. On exam has some wheezing noted. Pharynx normal. Sinus congestion noted. white blood cell count normal. BNP and troponin normal. EKG shows sinus rhythm. Chest x-ray shows obstructive lung disease. gave steriod and azithromycin. told to follow up with primary. patient understand and agrees with plan. - Differential Dx - Cardiopulmonary Differential Diagnoses - Cardiopulmonary: Bronchitis, CHF, Laryngitis, Lower Resp Infection - Diagnoses Provider Diagnoses: Bronchitis, Asthma Discharge - Sign-Out/Discharge Documenting (check all that apply): Patient Departure - Discharge Plan Condition: Good Disposition: HOME Prescriptions: Azithromycin TAB* [Zithromax TAB (Z-SHRUTHI) 250 mg #6 tabs] 250 mg PO DAILY #4 tab Benzonatate CAP* [Tessalon 100 MG CAP*] 100 mg PO TID #21 cap predniSONE TAB* [Deltasone TAB*] 50 mg PO DAILY #4 tab Patient Education Materials: Acute Bronchitis (ED) Referrals: Antione Dasilva MD [Primary Care Provider] - Additional Instructions: Use inhaler up to two puffs every 4 hours for cough and wheezing Take steroid once a day for 4 more days starting tomorrow Take antibiotic once daily starting tomorrow for 4 days take three times a day for cough Take Tylenol for pain every 6 hours Return to ED if develop severe shortness of breath, worsening chest pain, or any new or worsening symptoms - Billing Disposition and Condition Condition: GOOD Disposition: Home
[2018-03-16 13:34] LABS: EGFR Non-African American 58.5 (>60)
[2018-03-16] MEDS ORDERED: NS 0.9% 1000 ML* 1,000 ML IV ONE (13:51)
[2018-03-16] MEDS ORDERED: methylPREDNISolone 125 MG* 2 ML VIAL IV ONE (14:10)
[2018-03-16] MEDS ORDERED: Benzonatate CAP* 100 MG PO ONE (14:23)
[2018-03-16] MEDS ORDERED: Azithromycin TAB* 250 MG PO ONE (14:25)
[2018-03-16 15:16] VITALS: BP 147/88
== END 2018-03-16 15:38 | disposition home or self-care (01) ==
LOC: ED 12:13
DX: J45.909 Unspecified asthma, uncomplicated (principal); Z88.5 Allergy status to narcotic agent; Z88.8 Allergy status to other drugs, medicaments and biological substances; F17.200 Nicotine dependence, unspecified, uncomplicated
CPT/HCPCS: 36415; 71046; 80053; 83605; 83880; 84484; 85025; 86140; 87040; 87899; 93005; 96374; 99283; A9270-GY; J2930

== ENCOUNTER → 2018-03-30 12:35 | Day surgery (SDC) | payer OTHER ==
--- NOTE | 2018-03-27 13:03 | HP ---
HISTORY AND PHYSICAL: DATE OF ADMISSION/SURGERY: 03/30/18 DATE OF OFFICE VISIT: 03/27/18 SURGEON: Clarita Warner MD * (DICTATED BY MIKE HERNADEZ) PROCEDURE: Left knee arthroscopy with partial meniscectomy, possible chondroplasty, possible synovectomy. CHIEF COMPLAINT: Left knee pain. HISTORY OF PRESENT ILLNESS: Ms. Bowman is a 58-year-old female with continued complaints of left knee pain and MRI confirms a meniscus tear and she has elected to proceed with surgery. PAST MEDICAL HISTORY: Hypertension, hyperlipidemia, bipolar disorder, HIV, hepatitis B, and asthma. PAST SURGICAL HISTORY: Tubal ligation, rectal polyp removal, and appendectomy. CURRENT MEDICATIONS: 1. Risperidone 2 mg daily. 2. Lamotrigine 100 mg daily. 3. Hydroxyzine 25 mg daily. 4. Vitamin D3. 5. Colace. 6. Omeprazole 20 mg daily. 7. Amlodipine 5 mg daily. 8. Albuterol. 9. Cetirizine 10 mg daily. 10. Fluticasone nasal spray. ALLERGIES: To VERSED. FAMILY HISTORY: Diabetes. SOCIAL HISTORY: She is a 58-year-old female. She lives alone. She smokes occasionally. She does report smoking marijuana, but denies alcohol use. REVIEW OF SYSTEMS: A complete 14-point review of systems was reviewed with the patient. It was positive for asthma, HIV and hepatitis B, and she reports some occasional palpitations. She denies history of DVT, MRSA, or anesthesia problems. PHYSICAL EXAMINATION GENERAL: She is well developed, well nourished, in no acute distress. VITAL SIGNS: She stands 5 feet 5 inches tall, weighs 221 pounds. Her blood pressure is 132/84 and heart rate is 104. HEENT: Normocephalic, atraumatic. NECK: Supple. No palpable lymph nodes. PULMONARY: The lungs are clear to auscultation bilaterally. CARDIO: Regular rate and rhythm. Strong S1, S2. ABDOMEN: Soft, nontender, and nondistended. NEUROLOGICAL: She is alert and oriented x3. MUSCULOSKELETAL: Left lower extremity: The skin is intact. There are no open wounds or abrasions. There is ghxt-nz-gtiqkqdu effusion. She has some tenderness over the medial joint line. Range of motion is 10 to 120 degrees of flexion. She has positive Apley's and Adilson's. Her lower extremity muscle group strengths are intact at 5/5 and she has a 2+ dorsalis pedis pulse. ASSESSMENT AND PLAN: Ms. Bowman is a 58-year-old female with left knee pain and swelling due to a medial meniscus tear. She has elected to proceed with left knee arthroscopy with partial medial meniscectomy, possible chondroplasty, possible synovectomy. The surgery is scheduled for 03/30/[address] Warner discussed the risks and benefits of the surgery at today's visit and all of her questions were answered. She will follow up with Dr. Warner 2 weeks after the surgery. MIKE HERNADEZ [id number]/[facility] #: [id number] MTDD
[~2018-03-30 12:35] MED LIST changes: -Albuterol/Ipratropium NEB.SOL* Albuterol 2.5 MG/Ipratropium 0.5 MG 3 ML INH ONE; -Azithromycin TAB* 250 MG PO ONE; +Buffered Lidocaine 0.9% SYRIN* 5 ML/SYR SYRINGE INTRADERM ONE; +Bupivacaine 0.5%* 50 ML VIAL ONE; +EPINEPHRINE 1 MG/ML 1 ML VIAL ONE; +Ketorolac INJ* 30 MG/ML 1 ML VIAL IV PRN; +Ketorolac INJ* 30 MG/ML 1 ML VIAL ONE; +Lactated Ringers 1000 ML Bag* 1,000 ML IV SCH; +Lidocaine 2% PF * 5 ML VIAL ONE; +Naloxone* 0.4 MG/ML 1 ML VIAL IV PRN; +Ondansetron INJ* 2 MG/ML VIAL IV PRN; +Propofol* 10 MG/ML 20 ML BTL ONE; +Sodium Citrate/Citric Acid* 15 ML UDC ONE; +Sodium Citrate/Citric Acid* 15 ML UDC PO ONE; +ceFAZolin 2 GM PREMIX in ORs 2 GM/50 ML BAG IVPB ONE; +fentaNYL* 50 MCG/ML 2 ML VIAL (100 MCG VIAL) ONE; +methylPREDNISolone ACETATE 80* 80 MG/ML 1 ML VIAL ONE; +oxyCODONE/Acetamin 5/325 MG* TAB ONE; -predniSONE TAB* 20 MG PO ONE
[2018-03-30] MEDS: fentaNYL* 50 MCG/ML 2 ML VIAL (100 MCG VIAL) IV PRN ×2 (16:50→17:19)
[2018-03-30 18:01] VITALS: BP 134/88
--- NOTE | 2018-03-31 06:30 | OP ---
DATE OF OPERATION: 03/30/18 - SDS DATE OF : 62 SURGEON: Clarita Warner MD CERTIFIED NURSING ASSISTANT: MIKE Mccullough. Ms. Cardenas did help throughout the procedure with preparation of the leg, wound retraction, manipulation of the knee, and wound closure. ANESTHESIOLOGIST: Dr. Calix. ANESTHESIA: General. PRE-OP DIAGNOSIS: Left knee moderate arthritic changes with medial meniscal tear. POST-OP DIAGNOSIS: Left knee severe degenerative changes with medial meniscal tear. OPERATIVE PROCEDURE: Left knee arthroscopy with partial medial meniscectomy and patellofemoral chondroplasty. COMPLICATIONS: None. ESTIMATED BLOOD LOSS: Less than 25 cc. SPECIMENS: None. BRIEF HISTORY/INDICATIONS: Ms. Bowman is a 58-year-old female who developed severe left knee pain and mechanical symptoms. Radiographs demonstrated both arthritis and a medial meniscal tear. Due to continued pain and mechanical symptoms and failure of conservative treatment, she elected to undergo left knee arthroscopy with partial meniscectomy, possible chondroplasty, possible synovectomy. Informed consent was obtained from the patient. She understood the risks of surgery included, but were not limited to, bleeding, infection, damage to nearby structures, continued pain, need for further surgery, re-tear of the meniscus, continued progression of arthritis, stroke, heart attack, blood clot, and . She wished to proceed. INTRAOPERATIVE FINDINGS: Intraoperatively, the patient was noted to have significant degenerative changes in the medial compartment. These were grade 2 and 3 Outerbridge cartilage changes with loss of cartilage and softened cartilage. In the patellofemoral compartment, there were grade 3 and 4 Outerbridge cartilage changes with cartilage flapping and significant loss of cartilage with exposed subchondral bone. She also had a medial meniscal tear involving the mid portion and posterior horn of the medial meniscus. This was in the white-red zone. This was a longitudinal tear. DESCRIPTION OF PROCEDURE: Ms. Bowman was identified in the preanesthesia unit. Her left lower extremity was marked as the correct operative side. Informed consent was signed and placed in the chart. The patient was taken to the operating room and placed under general anesthesia. Left lower extremity was prepped and draped in the usual sterile fashion. Preop time-out was made to correctly identify the patient's side and site. Appropriate perioperative antibiotics were given within 1 hour of incision. A 0.5 cm lateral portal incision was made with a 10 blade and carried down to the capsule. Trocar was introduced. As soon as the light and water sources were turned on, there was immediate visualization of the suprapatellar pouch. A tour of the knee joint was performed. Suprapatellar pouch showed no obvious abnormality. Patellofemoral compartment showed exposed subchondral bone and grade 3 and 4 Outerbridge cartilage changes. There was significant cartilage flapping. Medial gutter showed no loose body or plica. The medial compartment showed grade 2 and 3 Outerbridge cartilage changes along the medial femoral condyle with cartilage loss and softening of the cartilage. There was a medial meniscal tear involving the body and posterior horn of the medial meniscus. ACL and PCL appeared to be intact. The knee was placed in a [id number]-kp-gqbv position. There was no obvious meniscal tear and minimal degenerative changes. Lateral gutter had no obvious abnormality. Under direct visualization, a medial portal incision was made with a 15 blade. A probe was introduced and the second tour of the knee joint was performed. No additional findings were noted. Shaver and radiofrequency ablation wand were used to remove some inflammatory tissue from the anterior joint line to improve visualization. The radiofrequency ablation wand was used to perform chondroplasty in patellofemoral compartment. Any large cartilage flaps were carefully smoothed. Next, the straight biter and shaver were used to perform partial medial meniscectomy. The medial longitudinal tear was sized in the white-red zone of the medial meniscus until a smooth border was obtained. Radiofrequency ablation wand was then used to smooth the remaining edge of the medical meniscus. Further probing of the medial meniscus showed no additional tears or flipped fragments. The knee was copiously irrigated with sterile saline. All instruments were removed. The incisions were closed using interrupted 3-0 nylon suture. An intraarticular injection of 80 mg of Depo-Medrol and 6 cc of 0.25% Marcaine was placed in the knee joint. Incisions were covered with sterile Xeroform, 4x4s, and Webril. Juvencio wrap and cold pack were placed over this. The patient's anesthesia was reversed without difficulty. She was taken to the PACU in stable condition. Intended weightbearing will be weightbearing as tolerated. Intended DVT prophylaxis will be aspirin. [id number]/[facility] #: [id number] [facility] MEDICAL CENTERGeovanni
== END | disposition home or self-care (01) ==
LOC: OR 12:35
PROVIDERS: ATTEND Orthopaedic Surgery Adult Reconstructive Orthopaedic Surgery
DX: M23.204 Derangement of unspecified medial meniscus due to old tear or injury, left knee (principal); M17.12 Unilateral primary osteoarthritis, left knee; I10 Essential (primary) hypertension; E78.5 Hyperlipidemia, unspecified; F31.9 Bipolar disorder, unspecified; J45.909 Unspecified asthma, uncomplicated; Z72.0 Tobacco use; Z21 Asymptomatic human immunodeficiency virus [HIV] infection status; B19.10 Unspecified viral hepatitis B without hepatic coma
CPT/HCPCS: A9270-GY; J0690; J1040; J1885; J2704; J3010

== ENCOUNTER 2018-08-07 09:39 | Emergency (ER) | payer OTHER ==
[2018-08-07] MEDS ORDERED: Ibuprofen TAB* 600 MG PO ONE (10:42)
[2018-08-07 11:59] VITALS: BP 131/87
--- NOTE | 2018-08-07 12:27 | ED ---
Lower Extremity - HPI Summary HPI Summary: Patient is a 58-year-old female presenting to the ED after a slip and fall just prior to arrival. She states the fall was mechanical. She denies hitting her head or LOC. She does endorse pain to the left knee and left hand. She denies any hip pain. Pain to the left knee is most notably over the abrasion, however she does have some pain with flexion and extension at this knee. She is status post knee replacement [address] Warner. She denies any discomfort with flexion and extension at the bilateral hip joints, ankles, wrists, elbows or shoulders. 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 She remains ambulatory and is ambulating well on arrival. - History of Current Complaint Chief Complaint: EDExtremityLower Stated Complaint: FELL/BODY PAIN PER PT Time Seen by Provider: 08/07/18 10:03 Hx Obtained From: Patient Mechanism Of Injury: Blunt Trauma Onset of Pain: Minutes Onset/Duration: Minutes Severity Initially: Mild Severity Currently: Mild Pain Intensity: 6 Pain Scale Used: 0-10 Numeric Timing: Constant Location: Is Discrete @ - left knee abrasion Associated Signs And Symptoms: Positive: Swelling. Negative: Redness, Bruising , Weakness, Dizziness Aggravating Factor(s): Standing, Ambulation Alleviating Factor(s): Rest Able to Bear Weight: No - Risk Factors Gout Risk Factors: Negative DVT Risk Factors: Negative Septic Arthritis Risk Factor: Negative - Allergies/Home Medications Allergies/Adverse Reactions: Allergies Allergy/AdvReac Type Severity Reaction Status Date / Time midazolam [From Versed] Allergy Unknown Verified 08/07/18 09:46 Reaction Details oxycodone AdvReac See Comment Verified 08/07/18 09:46 Home Medications: Home Medications Bictegrav/Emtricit/Tenofov Ala [Biktarvy 50-200-25 mg Tablet] 1 tab PO DAILY [History Confirmed 08/07/18] Cyclobenzaprine TAB* [Flexeril 10 MG TAB*] 10 mg PO TID PRN 08/07/18 [History Confirmed 08/07/18] Docusate CAP* [Colace Cap*] 100 mg PO TID 08/07/18 [History Confirmed 08/07/18] Fluticasone NASAL SPRAY 50MCG* [Flonase NASAL SPRAY 50MCG*] 2 spray BOTH NARES DAILY 08/07/18 [History Confirmed 08/07/18] Gabapentin TAB(NF) [Neurontin 600 mg TAB(NF)] 1,200 mg PO BEDTIME 08/07/18 [ History Confirmed 08/07/18] Gabapentin TAB(NF) [Neurontin 600 mg TAB(NF)] 600 mg PO BID 08/07/18 [History Confirmed 08/07/18] Levalbuterol HFA INHALER* [Xopenex Hfa Inhaler*] 1 - 2 puff INH Q6H PRN [History Confirmed 08/07/18] Multivitamins/Minerals TAB* [Theragran/minerals TAB*] 1 tab PO DAILY 08/07/18 [ History Confirmed 08/07/18] Omeprazole CAP (NF) [Prilosec CAP* 20 MG] 20 mg PO DAILY 08/07/18 [History Confirmed 08/07/18] PMH/Surg Hx/FS Hx/Imm Hx Previously Healthy: Yes Endocrine/Hematology History: Reports: Other Endocrine/Hematological Disorders - herpes, hiv Denies: Hx Anticoagulant Therapy, Hx Blood Disorders, Hx Diabetes, Hx Unexplained Bleeding Cardiovascular History: Reports: Hx Hypertension, Other Cardiovascular Problems/ Disorders - HAD AN ECHO ON 03/22 SEES Denies: Hx Pacemaker/ICD Respiratory History: Reports: Hx Asthma GI History: Reports: Hx Gastroesophageal Reflux Disease, Other GI Disorders - Hep C History: Denies: Hx Renal Disease Musculoskeletal History: Reports: Other Musculoskeletal History - LEFT KNEE Comment Only: Hx Arthritis - GENRALIZED Sensory History: Reports: Hx Contacts or Glasses - GLASSES Denies: Hx Legally Blind, Hx Deafness, Hx Hearing Aid Opthamlomology History: Reports: Hx Contacts or Glasses - GLASSES Denies: Hx Legally Blind Neurological History: Reports: Other Neuro Impairments/Disorders - PT STATES FAMILY HX SCIATICA Psychiatric History: Reports: Hx Anxiety, Hx Depression, Hx Bipolar Disorder Denies: Hx Panic Disorder - Surgical History Surgery Procedure, Year, and Place: appendix; tubal ligation. RECTAL POLYPS JUAN Hx Anesthesia Reactions: No - Immunization History Date of Tetanus Vaccine: unk Date of Influenza Vaccine: fall 2016 Hx Pertussis Vaccination: No Immunizations Up to Date: Yes Infectious Disease History: No Infectious Disease History: Reports: Hx Hepatitis - C, Hx Human Immunodeficiency Virus (HIV) - on meds Denies: Traveled Outside the [place] in Last 30 Days - Family History Known Family History: Positive: Hypertension, Diabetes, Other - sciatica - Social History Occupation: Unemployed Lives: With Family Alcohol Use: None Alcohol Amount: 1 beer last night Hx Substance Use: Yes Substance Use Type: Reports: Marijuana Substance Use Comment - Amount & Last Used: daily Hx Tobacco Use: Yes Smoking Status (MU): Light Every Day Tobacco Smoker Type: Cigarettes Amount Used/How Often: 1/2PPD Have You Smoked in the Last Year: Yes Review of Systems Constitutional: Negative Negative: Fever, Chills, Fatigue, Skin Diaphoresis Negative: Palpitations, Chest Pain Negative: Shortness Of Breath, Cough Negative: Abdominal Pain, Vomiting Genitourinary: Negative Positive: no symptoms reported, see HPI Positive: Arthralgia - left knee pain with abrasion Positive: Other - abrasion to the left knee Neurological: Negative All Other Systems Reviewed And Are Negative: Yes Physical Exam Triage Information Reviewed: Yes Vital Signs On Initial Exam: Initial Vitals Temp Pulse Resp BP Pulse Ox 98.7 F 99 22 143/86 96 08/07/18 09:45 08/07/18 09:45 08/07/18 09:45 08/07/18 09:45 08/07/18 09:45 Vital Signs Reviewed: Yes Appearance: Positive: Well-Appearing, Well-Nourished Skin: Positive: Warm, Skin Color Reflects Adequate Perfusion, Other - abrasion to the L knee Head/Face: Positive: Normal Head/Face Inspection Eyes: Positive: EOMI, Conjunctiva Clear Neck: Positive: Supple, No Lymphadenopathy Respiratory/Lung Sounds: Positive: Clear to Auscultation, Breath Sounds Present Cardiovascular: Positive: RRR, Pulses are Symmetrical in both Upper and Lower Extremities Musculoskeletal: Positive: Normal, Strength/ROM Intact Neurological: Positive: Speech Normal Psychiatric: Positive: Affect/Mood Appropriate AVPU Assessment: Alert Diagnostics - Vital Signs Vital Signs Temp Pulse Resp BP Pulse Ox 08/07/18 11:57 98.2 F 87 18 131/87 94 08/07/18 09:45 98.7 F 99 22 143/86 96 - Laboratory Lab Statement: Any lab studies that have been ordered have been reviewed, and results considered in the medical decision making process. Lower Extremity Course/Dx - Course Course Of Treatment: Patient is evaluated for a mechanical fall with left knee and hand pain. She denies any hand pain at this time, but states she landed on her hand and left knee. She is able to flex and extend at the wrist and elbow joint without discomfort. Good forge helper strength. Thumb opposition intact. Left knee is with discomfort with flexion and extension, small amount of swelling noted, most to the suprapatellar region. 2 cm abrasion to the left knee, superficial. This was cleansed and bandaged. Left knee x-ray obtained which shows no acute findings except for small suprapatellar swelling. Patient is ambulating well. She requested a social work visit while here. Social work completed visit while in the ED. She is given ibuprofen 600 mg with good effect. She ambulates well upon discharge. - Diagnoses Differential Diagnosis/HQI/PQRI: Positive: Contusion, Fracture (Closed), Sprain , Strain Provider Diagnoses: Knee pain, left Discharge - Sign-Out/Discharge Documenting (check all that apply): Patient Departure Patient Received Moderate/Deep Sedation with Procedure: No - Discharge Plan Condition: Stable Disposition: HOME Patient Education Materials: Knee Pain (ED) Referrals: Antione Dasilva MD [Primary Care Provider] - Additional Instructions: Ibuprofen 600mg three times daily for pain - Billing Disposition and Condition Condition: STABLE Disposition: Home
== END 2018-08-07 11:57 | disposition home or self-care (01) ==
LOC: ED 09:39
DX: M25.562 Pain in left knee (principal); W01.0XXA Fall on same level from slipping, tripping and stumbling without subsequent striking against object, initial encounter; I10 Essential (primary) hypertension; B00.9 Herpesviral infection, unspecified; B20 Human immunodeficiency virus [HIV] disease; K21.9 Gastro-esophageal reflux disease without esophagitis; J45.909 Unspecified asthma, uncomplicated; M19.90 Unspecified osteoarthritis, unspecified site; F41.9 Anxiety disorder, unspecified; F31.9 Bipolar disorder, unspecified; F17.210 Nicotine dependence, cigarettes, uncomplicated; Z88.5 Allergy status to narcotic agent; Z88.8 Allergy status to other drugs, medicaments and biological substances; Z79.51 Long term (current) use of inhaled steroids; Z79.899 Other long term (current) drug therapy; Z86.19 Personal history of other infectious and parasitic diseases
CPT/HCPCS: 99282; A9270-GY

== ENCOUNTER 2018-09-13 18:55 | Emergency (ER) | payer OTHER ==
--- OUTSIDE RECORDS SUMMARY | 2018-09-13 19:25 | XMS REPORT | Continuity of Care Document ---
:1960 External Reference #:[id number] Author Name Ainsley Arreola Care Team Providers Name Role Phone Antione Dasilva MD Primary Care Physician Unavailable Payers Date Identification Numbers Payment Provider Subscriber Policy Number: [id number] Zach Bowman Group Name: [id number] [address] PayID: [id number] [place] [address] Advance Directives Description No Information Available Problems Active Problems Provider Date Localized, primary osteoarthritis Carri Stanley MD Onset: 11/17/2017 Family History Date Family Member(s) Observation Comments General Diabetes General Hypertension Social History Type Date Description Comments Sex Unknown Lives With Friend Lives With alone 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 ETOH Use Occasionally consumes alcohol Tobacco Use Start: Unknown Patient is a current smoker, smokes every day Smoking Status Reviewed: 08/16/18 Patient is a current smoker, smokes every day Exercise Type/Frequency Does not exercise Allergies, Adverse Reactions, Alerts Active Allergies Reaction Severity Comments Date Midazolam 03/01/2018 Oxycodone 03/01/2018 Inactive Allergies NKDA 08/03/2013 Medications Active Medications SIG Qnty Indications Ordering Provider Date Lamotrigine ER Unknown 100mg Hydroxyzine HCL Unknown 25mg Vitamin D3 Super Unknown Strength Docusate Sodium Unknown 100mg Omeprazole Unknown 20mg Amlodipine Besylate Unknown Albuterol Unknown Cetirizine HCL 1 by mouth every Unknown 10mg day Chewtabs Fluticasone Propionate Unknown Nasal [place] 50mcg/Act Suspension History Medications Hydrocodone-Acetaminophen 1-2 tabs every 30tabs Clarita Warner, 03/30/2018 - 5-325mg Tablets 4-6 hours as M.D. 05/18/2018 needed for pain. max 6 per day Tramadol HCL 1-2 tablet by 30tabs John Gandhi 03/30/2018 - 50mg Tablets mouth every MD Matthew 03/30/2018 4-6 hours as needed pain Aspirin take 1 by 28tabs Clarita Warner, 03/30/2018 - 325mg Tablets mouth twice a M.D. 05/18/2018 day for two weeks Hydrocodone-Acetaminophen 1 or 2 tabs by 42tabs Clarita Warner, 03/30/2018 - 5-325mg Tablets mouth every 8 M.D. 03/30/2018 hours as needed for pain Cyclobenzaprine twice a day Unknown - 03/26/2018 Gabapentin as needed Unknown - 03/26/2018 Meclizine HCL take 2 tablets Unknown - 12.5mg Tablets by mouth Up To 03/26/2018 three times a day if needed for Vertigo Ondansetron HCL Unknown - 8mg 03/26/2018 Proair HFA Unknown - 03/26/2018 Flovent Diskus Unknown - 03/26/2018 Montelukast Sodium Unknown - 10mg 03/26/2018 Pravastatin Sodium Unknown - 10mg 03/26/2018 Risperidone Unknown - 2mg 03/26/2018 Valtrex 1GR Unknown - 03/26/2018 Isentress Unknown - 400mg 03/26/2018 Norvir 100mg Unknown - 03/26/2018 Prezista Unknown - 600mg 02/28/2018 Viread 300mg Unknown - 02/28/2018 Medications Administered in Office Medication SIG Qnty Indications Ordering Provider Date Depomedrol 40MG Clarita Warner M.D. 05/19/2018 Injection Depomedrol 40MG Clarita Warner M.D. 01/18/2018 Injection Triamcinolone (Kenalog) Carri Stanley MD 10/06/2017 Injection Immunizations Description No Information Available Vital Signs Date Vital Result Comment 08/16/2018 9:43am Height 65 inches 5'5" Heart Rate 96 /min BP Systolic 132 mmHg BP Diastolic 90 mmHg Respiratory Rate 18 /min Body Temperature 98.1 F Pain Level 8 05/19/2018 1:55pm Height 65 inches 5'5" Weight 223.00 lb BP Systolic 116 mmHg BP Diastolic 74 mmHg Body Temperature 98.6 F BMI (Body Mass Index) 37.1 kg/m2 04/14/2018 9:44am Height 65 inches 5'5" Weight 222.00 lb BP Systolic 120 mmHg BP Diastolic 88 mmHg Body Temperature 98.0 F BMI (Body Mass Index) 36.9 kg/m2 03/27/2018 10:13am Height 65 inches 5'5" Weight 221.00 lb Heart Rate 104 /min BP Systolic 132 mmHg BP Diastolic 84 mmHg BMI (Body Mass Index) 36.8 kg/m2 03/01/2018 10:29am Height 65 inches 5'5" Weight [...] Information Available Procedures Date Code Description Status 05/19/2018 Inject/Drain Joint/Bursa Major W/O US Completed 03/30/2018 26844 Arthroscopy,Knee,Meniscectomy Medial Or Lateral Completed 03/30/2018 16054 Arthroscopy,Knee,Meniscectomy Medial Or Lateral Completed 01/18/201842155 Inject/Drain Joint/Bursa Major W/O US Completed 10/06/201706513 Inject/Drain Joint/Bursa Major W/O US Completed 08/03/2013 89833 FX Metatarsal Care Completed Encounters Type Date Location Provider Dx Diagnosis [facility] Visit 04[facility] R07.9 Chest pain, 8:40a [facility] unspecified Hospitalists F17.210 Nicotine dependence, cigarettes, uncomplicated I10 Essential (primary) hypertension B20 Human immunodeficiency virus [HIV] disease Office Visit 03/01/2018 10:[facility] Clarita Warner M25.562 Pain in left Of C.M.A. M.D. knee M17.0 Bilateral primary osteoarthritis of knee S83.242A Oth tear of medial meniscus, current injury, left knee, init M17.12 Unilateral primary osteoarthritis, left knee Office Visit 02/03/2018 10:15a [facility] Clarita Warner M25.562 Pain in left Of C.M.A. M.D. knee M17.0 Bilateral primary osteoarthritis of knee S83.242A Oth tear of medial meniscus, current injury, left knee, init Office Visit 01/18/2018 10:45a [facility] Clarita Warner M25.562 Pain in left Of C.M.A. M.D. knee M17.0 Bilateral primary osteoarthritis of knee M25.462 Effusion, left knee W19.xxxA Unspecified fall, initial encounter Office Visit 11/17/2017 Orthopedic Carri Stanley M17.12 Unilateral primary 10:00a Services Of osteoarthritis, left C.M.A. knee M17.11 Unilateral primary osteoarthritis, right knee M17.0 Bilateral primary osteoarthritis of knee Office Visit 10/06/2017 11:00a [facility] Carri Stanley M25.562 Pain in left Of C.M.A. MD knee M25.462 Effusion, left knee M17.12 Unilateral primary osteoarthritis, left knee M17.11 Unilateral primary osteoarthritis, right knee M25.561 Pain in right knee M17.0 Bilateral primary osteoarthritis of knee Plan of Treatment 05/19/2018 - Clarita Warner M.D.Z48.89 Encounter for other specified surgical ndkkakwtsD18.12 Unilateral primary osteoarthritis, left kneeM25.561 Pain in right kneeM25.461 Effusion, right kneeM17.11 Unilateral primary osteoarthritis, right kneeFollow up:Follow up: 3 months
[2018-09-13] MEDS ORDERED: Aspirin 81 mg CHEW TAB* 81 MG TAB.CHEW PO ONE (20:13)
--- NOTE | 2018-09-13 20:16 | ED ---
HPI Chest Pain - HPI Summary HPI Summary: A 58 y/o female presents to [facility] with a chief complaint of intermittent chest pain for the last 2-3 days with the episodes lasting for 10-15 minutes. She describes her pain as a heaviness. At triage she rated her pain as an 8/10 in severity. The patient denies a Hx of cardiac disease and denies having a stress test done. She reports that she used to be hypertensive but that she does not take the blood pressure medications anymore. She denies taking Aspirin. She reports a FHx of DM and HTN. - History of Current Complaint Chief Complaint: EDChestPainROMI Time Seen by Provider: 09/13/18 19:58 Hx Obtained From: Patient Onset/Duration: Started Days Ago, Still Present Timing: Intermittent, Lasting Minutes Initial Severity: Severe Current Severity: Severe Pain Intensity: 8 Pain Scale Used: 0-10 Numeric Chest Pain Location: Diffuse Chest Pain Radiates: No Character: Heaviness Aggravating Factor(s): Nothing Alleviating Factor(s): Nothing Associated Signs and Symptoms: Negative: Fever - Allergy/Home Medications Allergies/Adverse Reactions: Allergies Allergy/AdvReac Type Severity Reaction Status Date / Time midazolam [From Versed] Allergy Unknown Verified 08/07/18 09:46 Reaction Details oxycodone AdvReac See Comment Verified 08/07/18 09:46 PMH/Surg Hx/FS Hx/Imm Hx Endocrine/Hematology History: Reports: Other Endocrine/Hematological Disorders - herpes, hiv Denies: Hx Anticoagulant Therapy, Hx Blood Disorders, Hx Diabetes, Hx Unexplained Bleeding Cardiovascular History: Reports: Hx Hypertension, Other Cardiovascular Problems/ Disorders - HAD AN ECHO ON 03/22 SEES Denies: Hx Pacemaker/ICD Respiratory History: Reports: Hx Asthma GI History: Reports: Hx Gastroesophageal Reflux Disease, Other GI Disorders - Hep C History: Denies: Hx Renal Disease Musculoskeletal History: Reports: Other Musculoskeletal History - LEFT KNEE Comment Only: Hx Arthritis - GENRALIZED Sensory History: Reports: Hx Contacts or Glasses - GLASSES Denies: Hx Legally Blind, Hx Deafness, Hx Hearing Aid Opthamlomology History: Reports: Hx Contacts or Glasses - GLASSES Denies: Hx Legally Blind Neurological History: Reports: Other Neuro Impairments/Disorders - PT STATES FAMILY HX SCIATICA Psychiatric History: Reports: Hx Anxiety, Hx Depression, Hx Bipolar Disorder Denies: Hx Panic Disorder - Surgical History Surgery Procedure, Year, and Place: appendix; tubal ligation. RECTAL POLYPS JUAN Hx Anesthesia Reactions: No - Immunization History Date of Tetanus Vaccine: unk Date of Influenza Vaccine: fall 2016 Infectious Disease History: No Infectious Disease History: Reports: Hx Hepatitis - C, Hx Human Immunodeficiency Virus (HIV) - on meds Denies: Traveled Outside the [place] in Last 30 Days - Family History Known Family History: Positive: Hypertension, Diabetes, Other - sciatica - Social History Alcohol Use: None Alcohol Amount: 1 beer last night Hx Substance Use: Yes Substance Use Type: Reports: Marijuana Substance Use Comment - Amount & Last Used: daily Hx Tobacco Use: Yes Smoking Status (MU): Light Every Day Tobacco Smoker Type: Cigarettes Amount Used/How Often: 1/2PPD Have You Smoked in the Last Year: Yes Review of Systems Negative: Fever Positive: Chest Pain All Other Systems Reviewed And Are Negative: Yes Physical Exam - Summary Physical Exam Summary: VITAL SIGNS: Reviewed. GENERAL: Patient is a well-developed and nourished FEMALE who is lying comfortable in the stretcher. Patient is not in any acute respiratory distress. HEAD AND FACE: No signs of trauma. No ecchymosis, hematomas or skull depressions. No sinus tenderness. EYES: PERRLA, EOMI x 2, No injected conjunctiva, no nystagmus. EARS: Hearing grossly intact. Ear canals and tympanic membranes are within normal limits. MOUTH: Oropharynx within normal limits. NECK: Supple, trachea is midline, no adenopathy, no JVD, no carotid bruit, no c- spine tenderness, neck with full ROM CHEST: Symmetric, no tenderness at palpation LUNGS: Clear to auscultation bilaterally. No wheezing or crackles. CVS: Regular rate and rhythm, S1 and S2 present, no murmurs or gallops appreciated. ABDOMEN: Soft, non-tender. No signs of distention. No rebound no guarding, and no masses palpated. Bowel sounds are normal. EXTREMITIES: FROM in all major joints, no edema, no cyanosis or clubbing. NEURO: Alert and oriented x 3. No acute neurological deficits. Speech is normal and follows commands. SKIN: Dry and warm Triage Information Reviewed: Yes Vital Signs On Initial Exam: Initial Vitals Temp Pulse Resp BP Pulse Ox 97.1 F 85 20 136/85 94 09/13/18 19:02 09/13/18 19:02 09/13/18 19:02 09/13/18 19:02 09/13/18 19:02 Vital Signs Reviewed: Yes Diagnostics - Vital Signs Vital Signs Temp Pulse Resp BP Pulse Ox 09/13/18 19:02 97.1 F 85 20 136/85 94 - Laboratory Result Diagrams: 09/13/18 20:08 09/13/18 20:08 Lab Statement: Any lab studies that have been ordered have been reviewed, and results considered in the medical decision making process. - EKG 19:02 Cardiac Rate: NL - 78 bpm EKG Rhythm: Sinus Rhythm Summary of EKG Findings: NSR at 78 bpm. Normal axis. Normal interval. No ischemic changes. Chest Pain Course/Dx - Course Course Of Treatment: A 58 y/o female presents to [facility] with a chief complaint of intermittent chest pain for the last 2-3 days with the episodes lasting for 10-15 minutes. The physical exam was unremarkable. EKG showed NSR at 78 bpm. Normal axis. Normal interval. No ischemic changes. In the ED course the patient was given Aspirin PO. Bloodwork and chemistries obtained and are WNL. Pt has no pain in the ED, has a normal EKG, and two negative troponins. Her HEART score is 1. The patient will be discharged and follow up with her psych therapist tomorrow for an outpatient stress test. The patient is agreeable with this plan. - Diagnoses Provider Diagnoses: Chest pain Discharge - Sign-Out/Discharge Documenting (check all that apply): Patient Departure - DC Patient Received Moderate/Deep Sedation with Procedure: No - Discharge Plan Condition: Stable Disposition: HOME Patient Education Materials: Chest Pain (DC) Referrals: Antione Dasilva MD [Primary Care Provider] - Zohra Oquendo MD [Medical Doctor] - Additional Instructions: Follow up with your psych therapist tomorrow for an outpatient stress test PLEASE RETURN TO THE ED IMMEDIATELY FOR WORSENING OR CONCERNING SYMPTOMS. - Billing Disposition and Condition Condition: STABLE Disposition: Home - Attestation Statements Document Initiated by Scribe: Yes Documenting Scribe: Panchito Diallo Provider For Whom Karinibe is Documenting (Include Credential): Erika Escobar MD Scribe Attestation: Panchito Gabriel, scribed for Erika Escobar MD on 09/14/18 at 2051. Scribe Documentation Reviewed: Yes Provider Attestation: The documentation as recorded by the scribe, Panchito Diallo accurately reflects the service I personally performed and the decisions made by me, Erika Escobar MD Status of Scribe Document: Viewed
[2018-09-13 20:17] LABS: ABS Eosinophils 0.2 10^3/ul (0-0.6); ABS Lymphocytes 3.6 10^3/ul (1.0-4.8); ABS Monocytes 0.4 10^3/ul (0-0.8); ABS Neutrophils 3.2 10^3/ul (1.5-7.7); Eosinophil % 2.6 %; Hematocrit 44 % (35-47); Hemoglobin 14.5 g/dL (12.0-16.0); Lymphocyte % 48.3 %; Mean Corpuscular HGB Conc 33 g/dL (31-36); Mean Corpuscular Hemoglobin 31 pg (27-31); Mean Corpuscular Volume 94 fL (80-97); Nucleated Red Blood Cells % 0.1; Platelet Count 228 10^3/uL (150-450); Red Blood Count 4.62 10^6 /uL (3.70-4.87); Red Cell Distribution Width 14 % (10.5-15); White Blood Count 7.5 10^3/uL (3.5-10.8)
[2018-09-13 20:27] LABS: INR 0.96 (0.82-1.09)
[2018-09-13 20:33] LABS: ALT 21 U/L (7-52); Albumin 4.5 g/dL (3.2-5.2); Albumin/Globulin Ratio 1.5 (1-3); Alkaline Phosphatase 87 U/L (34-104); BUN/Creatinine Ratio 10.8 (8-20); Blood Urea Nitrogen 12 mg/dL (6-24); CO2 Carbon Dioxide 27 mmol/L (22-32); Calcium 9.6 mg/dL (8.6-10.3); Chloride 106 mmol/L (101-111); EGFR African American 61.3 (>60); EGFR Non-African American 50.7 (>60); Globulin 3.1 g/dL (2-4); Glucose 98 mg/dL (70-100); Sodium 140 mmol/L (135-145); Total Protein 7.6 g/dL (6.4-8.9)
[2018-09-13 20:35] LABS: Troponin I 0.01 ng/mL (<0.04)
[2018-09-13 21:10] LABS: Anion Gap 7 mmol/L (2-11)
[2018-09-14 00:14] VITALS: BP 138/76
== END 2018-09-14 | disposition home or self-care (01) ==
LOC: ED 18:55
DX: R07.9 Chest pain, unspecified (principal); B20 Human immunodeficiency virus [HIV] disease; B00.9 Herpesviral infection, unspecified; J45.909 Unspecified asthma, uncomplicated; K21.9 Gastro-esophageal reflux disease without esophagitis; F31.9 Bipolar disorder, unspecified; F41.9 Anxiety disorder, unspecified; F17.210 Nicotine dependence, cigarettes, uncomplicated; Z88.5 Allergy status to narcotic agent
CPT/HCPCS: 36415; 80053; 84484; 85025; 85610; 93005; 99283; A9270-GY

== ENCOUNTER 2018-09-15 11:15 | Emergency (ER) | payer OTHER ==
[2018-09-15] MEDS ORDERED: Dexamethasone IV* 4 MG/ML 1 ML (4 MG) IM ONE (12:02)
[2018-09-15] MEDS ORDERED: Ketorolac INJ* 60 MG/2 ML VIAL IM ONE (12:02)
[2018-09-15] MEDS ORDERED: Cyclobenzaprine TAB* 10 MG PO ONE (12:03)
--- NOTE | 2018-09-15 12:13 | ED ---
Lower Extremity - HPI Summary HPI Summary: Pt is a 58 y/o F presenting to the ED with a chief complaint of RLE pain. She states she has hx of sciatica issues, but this morning experienced pain in the front of her right leg, mostly in her hip/groin/lower back area, currently rated at an 8/10. Standing and bending over aggravates the pain. She denies fever. The pt drinks alcohol weekly, uses marijuana and smokes about 5 cigarettes a day. She last smoked marijuana this morning, and tried to take Gabapentin this morning for the pain. - History of Current Complaint Chief Complaint: EDHipPelvisInjury Stated Complaint: RIGHT LEG PAIN Time Seen by Provider: 09/15/18 11:47 Hx Obtained From: Patient Mechanism Of Injury: Unknown Onset of Pain: Hours Onset/Duration: Still Present Severity Initially: Moderate Severity Currently: Severe Pain Intensity: 8 Pain Scale Used: 0-10 Numeric Timing: Constant, Lasting Hours Location: Is Diffuse - R frontal leg/R hip/groin/lower back area Associated Signs And Symptoms: Positive: Negative. Negative: Fever Aggravating Factor(s): Standing, Other - bending Alleviating Factor(s): Nothing Able to Bear Weight: Yes - Allergies/Home Medications Allergies/Adverse Reactions: Allergies Allergy/AdvReac Type Severity Reaction Status Date / Time midazolam [From Versed] Allergy Unknown Verified 09/15/18 11:24 Reaction Details oxycodone AdvReac See Comment Verified 09/15/18 11:24 Home Medications: Home Medications Entecavir(NF) [Baraclude (NF)] 0.5 mg PO DAILY 09/15/18 [History Confirmed 09/15] PMH/Surg Hx/FS Hx/Imm Hx Previously Healthy: No Endocrine/Hematology History: Reports: Other Endocrine/Hematological Disorders - herpes, hiv Denies: Hx Anticoagulant Therapy, Hx Blood Disorders, Hx Diabetes, Hx Unexplained Bleeding Cardiovascular History: Reports: Hx Hypertension, Other Cardiovascular Problems/ Disorders - HAD AN ECHO ON 03/22 SEES Denies: Hx Pacemaker/ICD Respiratory History: Reports: Hx Asthma GI History: Reports: Hx Gastroesophageal Reflux Disease, Other GI Disorders - Hep C History: Denies: Hx Renal Disease Musculoskeletal History: Reports: Other Musculoskeletal History - LEFT KNEE, sciatica issues Comment Only: Hx Arthritis - GENRALIZED Sensory History: Reports: Hx Contacts or Glasses - GLASSES Denies: Hx Legally Blind, Hx Deafness, Hx Hearing Aid Opthamlomology History: Reports: Hx Contacts or Glasses - GLASSES Denies: Hx Legally Blind Neurological History: Reports: Other Neuro Impairments/Disorders - PT STATES FAMILY HX SCIATICA Psychiatric History: Reports: Hx Anxiety, Hx Depression, Hx Bipolar Disorder Denies: Hx Panic Disorder - Surgical History Surgery Procedure, Year, and Place: appendix; tubal ligation. RECTAL POLYPS JUAN Hx Anesthesia Reactions: No - Immunization History Date of Tetanus Vaccine: unk Date of Influenza Vaccine: fall 2016 Infectious Disease History: No Infectious Disease History: Reports: Hx Hepatitis - C, Hx Human Immunodeficiency Virus (HIV) - on meds Denies: Traveled Outside the [place] in Last 30 Days - Family History Known Family History: Positive: Hypertension, Diabetes, Other - sciatica - Social History Alcohol Use: Weekly Alcohol Amount: 1 beer last night Hx Substance Use: Yes Substance Use Type: Reports: Marijuana Substance Use Comment - Amount & Last Used: daily Hx Tobacco Use: Yes Smoking Status (MU): Light Every Day Tobacco Smoker Type: Cigarettes Amount Used/How Often: 1/2PPD Have You Smoked in the Last Year: Yes Review of Systems Negative: Fever Positive: Myalgia All Other Systems Reviewed And Are Negative: Yes Physical Exam - Summary Physical Exam Summary: GENERAL: Patient is a well-developed and nourished F who is lying comfortable in the stretcher. Patient is not in any acute respiratory distress. HEAD AND FACE: Normocephalic EYES: PERRLA, EOMI x 2. EARS: Hearing grossly intact. MOUTH: Oropharynx within normal limits. NECK: Supple, trachea is midline, no adenopathy, no JVD, no carotid bruit. CHEST: Symmetric, no tenderness at palpation LUNGS: Clear to auscultation bilaterally. No wheezing or crackles. CVS: Regular rate and rhythm, S1 and S2 present, no murmurs or gallops appreciated. ABDOMEN: Soft, non-tender. Bowel sounds are normal. No abnormal abdominal pulsations. EXTREMITIES: Tenderness to palpation in the R groin/lateral lower back area, no edema, no cyanosis or clubbing. NEURO: Alert and oriented x 3. No acute neurological deficits. Speech is normal and follows commands. SKIN: Dry and warm Triage Information Reviewed: Yes Vital Signs On Initial Exam: Initial Vitals Temp Pulse Resp BP Pulse Ox 98.3 F 104 20 142/82 94 09/15/18 11:21 09/15/18 11:21 09/15/18 11:21 09/15/18 11:21 09/15/18 11:21 Vital Signs Reviewed: Yes Diagnostics - Vital Signs Vital Signs Temp Pulse Resp BP Pulse Ox 09/15/18 11:21 98.3 F 104 20 142/82 94 - Laboratory Lab Statement: Any lab studies that have been ordered have been reviewed, and results considered in the medical decision making process. - Radiology SP Lumbarsacral XR Radiology Interpretation Completed By: Radiologist Summary of Radiographic Findings: Mild degenerative disc disease. ED physician has reviewed this report. Hip/Pelvis XR Radiology Interpretation Completed By: Radiologist Summary of Radiographic Findings: No acute osseous injury. If symptoms persist, recommend repeat imaging. ED physician has reviewed this report. Re-Evaluation - Re-Evaluation 1st re-eval Re-Evaluation Time: 13:20 Change: Improved Comment: Pt states that her pain is gone and that she feels much better. Lower Extremity Course/Dx - Course Course Of Treatment: Pt is a 58 y/o F presenting to the ED with a chief complaint of RLE pain. She states she has hx of sciatica issues, but this morning experienced pain in the front of her right leg, mostly in her hip/groin/ lower back area, currently rated at an 8/10. Standing and bending over aggravates the pain. She denies fever. On exam, the pt has tenderness to palpation in the R groin/lateral lower back area. SP lumbarsacral XR shows: Mild degenerative disc disease. Hip/Pelvis XR shows: No acute osseous injury. If symptoms persist, recommend repeat imaging. The pt will be d/c'ed with a dx of lumbar radiculopathy. She is stable and agreeable with this plan. I had very low suspicion for DVT based on the physical exam findings, and risk factors. I also had low suspicion for PE based on Wells' score. - Diagnoses Provider Diagnoses: Lumbar radiculopathy Discharge - Sign-Out/Discharge Documenting (check all that apply): Patient Departure Patient Received Moderate/Deep Sedation with Procedure: No - Discharge Plan Condition: Stable Disposition: HOME Patient Education Materials: Lumbar Radiculopathy (ED) Referrals: Antione Dasilva MD [Primary Care Provider] - Additional Instructions: Follow up with your primary care provider in the next 1-3 days. Return to the ED with any new or worsening symptoms. - Billing Disposition and Condition Condition: STABLE Disposition: Home - Attestation Statements Document Initiated by Cristian: Yes Documenting Scribe: Cat Sawyer Provider For Whom Karinibe is Documenting (Include Credential): Amanda Mendoza MD. Scribe Attestation: ICat, scribed for Amanda Mendoza MD. on 09/15/18 at 1421. Scribe Documentation Reviewed: Yes Provider Attestation: The documentation as recorded by the Cat pelletier accurately reflects the service I personally performed and the decisions made by me, Dariana Mendoza MD. Status of Scribe Document: Viewed
[2018-09-15 13:39] VITALS: BP 155/94
== END 2018-09-15 13:37 | disposition home or self-care (01) ==
LOC: ED 11:15
DX: M54.16 Radiculopathy, lumbar region (principal); M51.37 Other intervertebral disc degeneration, lumbosacral region; B19.20 Unspecified viral hepatitis C without hepatic coma; Z21 Asymptomatic human immunodeficiency virus [HIV] infection status; Z88.5 Allergy status to narcotic agent; Z88.8 Allergy status to other drugs, medicaments and biological substances; F17.210 Nicotine dependence, cigarettes, uncomplicated
CPT/HCPCS: 72110; 96372; 99282; A9270-GY; J1100; J1885

== ENCOUNTER 2018-09-16 21:33 | Emergency (ER) | payer OTHER ==
[2018-09-16] MEDS ORDERED: predniSONE TAB* 20 MG PO ONE (22:01)
[2018-09-16] MEDS ORDERED: Ketorolac INJ* 60 MG/2 ML VIAL IM ONE (22:01)
[2018-09-16] MEDS ORDERED: Cyclobenzaprine TAB* 10 MG PO ONE (22:02)
--- NOTE | 2018-09-16 22:03 | ED ---
Lower Extremity - HPI Summary HPI Summary: Patient is 58 y/o female with hx of sciatica with worsening low right back pain that radiates to her groin and anterior thigh. She was seen here yesterday for similar symptoms and states she received flexeril and an injection which helped her pain, but did not receive any prescriptions. She returns with the same pain. Denies bowel and bladder incontinence, numbness, weakness, fevers, shortness of breath. - History of Current Complaint Chief Complaint: EDExtremityLower Stated Complaint: PAIN IN RIGHT LEG PER PT Time Seen by Provider: 09/16/18 21:56 Hx Obtained From: Patient Onset of Pain: Hours Onset/Duration: Hours Severity Initially: Moderate Severity Currently: Moderate Pain Intensity: 10 Pain Scale Used: 0-10 Numeric Timing: Constant Location: Radiates To - Right low back pain radiates to right groin and anterior thigh. Character Of Pain: Sharp, Burning Associated Signs And Symptoms: Negative: Swelling, Redness, Bruising, Fever, Weakness Aggravating Factor(s): Standing, Movement Alleviating Factor(s): Nothing Able to Bear Weight: Yes - Allergies/Home Medications Allergies/Adverse Reactions: Allergies Allergy/AdvReac Type Severity Reaction Status Date / Time midazolam [From Versed] Allergy Unknown Verified 09/16/18 21:35 Reaction Details oxycodone AdvReac See Comment Verified 09/16/18 21:35 PMH/Surg Hx/FS Hx/Imm Hx Previously Healthy: No Endocrine/Hematology History: Reports: Other Endocrine/Hematological Disorders - herpes, hiv Denies: Hx Anticoagulant Therapy, Hx Blood Disorders, Hx Diabetes, Hx Unexplained Bleeding Cardiovascular History: Reports: Hx Hypertension, Other Cardiovascular Problems/ Disorders - HAD AN ECHO ON 03/22 SEES Denies: Hx Pacemaker/ICD Respiratory History: Reports: Hx Asthma GI History: Reports: Hx Gastroesophageal Reflux Disease, Other GI Disorders - Hep C History: Denies: Hx Renal Disease Musculoskeletal History: Reports: Other Musculoskeletal History - LEFT KNEE, sciatica issues Comment Only: Hx Arthritis - GENRALIZED Sensory History: Reports: Hx Contacts or Glasses - GLASSES Denies: Hx Legally Blind, Hx Deafness, Hx Hearing Aid Opthamlomology History: Reports: Hx Contacts or Glasses - GLASSES Denies: Hx Legally Blind Neurological History: Reports: Other Neuro Impairments/Disorders - PT STATES FAMILY HX SCIATICA Psychiatric History: Reports: Hx Anxiety, Hx Depression, Hx Bipolar Disorder Denies: Hx Panic Disorder - Surgical History Surgery Procedure, Year, and Place: appendix; tubal ligation. RECTAL POLYPS JUAN Hx Anesthesia Reactions: No - Immunization History Date of Tetanus Vaccine: unk Date of Influenza Vaccine: fall 2016 Infectious Disease History: No Infectious Disease History: Reports: Hx Hepatitis - C, Hx Human Immunodeficiency Virus (HIV) - on meds Denies: Traveled Outside the [place] in Last 30 Days - Family History Known Family History: Positive: Hypertension, Diabetes, Other - sciatica - Social History Alcohol Use: Weekly Alcohol Amount: 1 beer last night Hx Substance Use: Yes Substance Use Type: Reports: Marijuana Substance Use Comment - Amount & Last Used: daily Hx Tobacco Use: Yes Smoking Status (MU): Light Every Day Tobacco Smoker Type: Cigarettes Amount Used/How Often: 1/2PPD Have You Smoked in the Last Year: Yes Review of Systems Negative: Fever, Chills Negative: Shortness Of Breath Negative: incontinence Positive: Myalgia - Right low back pain radiates to right groin and right anterior thigh All Other Systems Reviewed And Are Negative: Yes Physical Exam Triage Information Reviewed: Yes Vital Signs On Initial Exam: Initial Vitals Temp Pulse Resp BP Pulse Ox 98.2 F 98 17 152/128 96 09/16/18 21:34 09/16/18 21:34 09/16/18 21:34 09/16/18 21:34 09/16/18 21:34 Appearance: Positive: Well-Appearing, Pain Distress - Mild distress with movement Skin: Positive: Warm, Skin Color Reflects Adequate Perfusion, Dry Head/Face: Positive: Normal Head/Face Inspection Eyes: Positive: Normal ENT: Positive: Normal ENT inspection Respiratory/Lung Sounds: Positive: Clear to Auscultation, Breath Sounds Present Cardiovascular: Positive: RRR. Negative: Murmur, Rub Musculoskeletal: Positive: Other - SLR positive on right. Paraspinal tenderness with palpation of right lumbar. No erythema, bruising, swelling. Neurological: Positive: Normal, Sensory/Motor Intact, Alert, Oriented to Person Place, Time Psychiatric: Positive: Normal Diagnostics - Vital Signs Vital Signs Temp Pulse Resp BP Pulse Ox 09/16/18 21:34 98.2 F 98 17 152/128 96 - Laboratory Lab Statement: Any lab studies that have been ordered have been reviewed, and results considered in the medical decision making process. Re-Evaluation - Re-Evaluation First re-eval Re-Evaluation Time: 22:36 Change: Improved Lower Extremity Course/Dx - Course Course Of Treatment: 58 y/o female returns after being treated yesterday for right lumbar radiculopathy with worsening pain. She improved with flexeril, prednisone, and Toradol here and was discharged with prescriptions for Flexeril , medrol dose pack, and NSAIDs. To f/u with her PCP. Neurologically intact without evidence for cauda equina or conus medullaris syndrome. Patient was seen in conjunction with the physician patent legal assistant student. - Diagnoses Differential Diagnosis/HQI/PQRI: Positive: Sciatica, Strain Provider Diagnoses: Lumbar back pain with radiculopathy affecting right lower extremity Discharge - Sign-Out/Discharge Documenting (check all that apply): Patient Departure Patient Received Moderate/Deep Sedation with Procedure: No - Discharge Plan Condition: Improved Disposition: HOME Prescriptions: Cyclobenzaprine (NF) [Cyclobenzaprine 5 MG (NF)] 5 mg PO TID PRN #15 tab PRN Reason: leg/muscle pain Dexamethasone TAB* [Decadron TAB*] 8 mg PO DAILY #8 tab Naproxen [Naproxen 500 mg tab] 500 mg PO BID PRN #10 tablet PRN Reason: leg pain Patient Education Materials: Lumbar Radiculopathy (ED), Lower Back Exercises ( ED) Referrals: Antione Dasilva MD [Primary Care Provider] - Additional Instructions: Follow-up with your doctor on Tuesday. Return with numbness/weakness, uncontrolled pain, difficulty with bowel or bladder, worse or other concerns. Have your doctor recheck your blood pressure as it was elevated today. - Billing Disposition and Condition Condition: IMPROVED Disposition: Home - Attestation Statements Document Initiated by Cristian: Yes Documenting Scribe: DONALD Perry Provider For Whom Cristian is Documenting (Include Credential): Dr. Soto Scribivett Attestation: Jonny Gabriel PA-S, scribed for Dr. Soto on 09/16/18 at 2309. Scribe Documentation Reviewed: Yes Provider Attestation: The documentation as recorded by the Jonny pelletier PA-S accurately reflects the service I personally performed and the decisions made by me, Dr. Soto Status of Scribe Document: Viewed
[2018-09-16 23:25] VITALS: BP 131/82
== END 2018-09-16 23:24 | disposition home or self-care (01) ==
LOC: ED 21:33
DX: M54.16 Radiculopathy, lumbar region (principal); M54.5 Low back pain; I10 Essential (primary) hypertension; F17.210 Nicotine dependence, cigarettes, uncomplicated
CPT/HCPCS: 96372; 99283; A9270-GY; J1885; J7512

== ENCOUNTER 2018-09-23 02:56 | Emergency (ER) | payer OTHER ==
--- NOTE | 2018-09-23 03:03 | ED ---
Lower Extremity - HPI Summary HPI Summary: This patient is a 58 year old female with hx of sciatica with right leg pain and back pain. The pain is on the lower right side and radiates to her right thighs and groin. She was seen here last week and received pain management. She returns with the same pain. Denies bowel and bladder incontinence, numbness, weakness, fevers, shortness of breath. - History of Current Complaint Stated Complaint: RIGHT LEG PAIN PER EMS Hx Obtained From: Patient Onset/Duration: Weeks Severity Initially: Severe Severity Currently: Severe Timing: Lasting Weeks - Allergies/Home Medications Allergies/Adverse Reactions: Allergies Allergy/AdvReac Type Severity Reaction Status Date / Time midazolam [From Versed] Allergy Unknown Verified 09/16/18 21:35 Reaction Details oxycodone AdvReac See Comment Verified 09/16/18 21:35 PMH/Surg Hx/FS Hx/Imm Hx Endocrine/Hematology History: Reports: Other Endocrine/Hematological Disorders - herpes, hiv Denies: Hx Anticoagulant Therapy, Hx Blood Disorders, Hx Diabetes, Hx Unexplained Bleeding Cardiovascular History: Reports: Hx Hypertension, Other Cardiovascular Problems/ Disorders - HAD AN ECHO ON 03/22 SEES Denies: Hx Pacemaker/ICD Respiratory History: Reports: Hx Asthma GI History: Reports: Hx Gastroesophageal Reflux Disease, Other GI Disorders - Hep C History: Denies: Hx Renal Disease Musculoskeletal History: Reports: Other Musculoskeletal History - LEFT KNEE, sciatica issues Comment Only: Hx Arthritis - GENRALIZED Sensory History: Reports: Hx Contacts or Glasses - GLASSES Denies: Hx Legally Blind, Hx Deafness, Hx Hearing Aid Opthamlomology History: Reports: Hx Contacts or Glasses - GLASSES Denies: Hx Legally Blind Neurological History: Reports: Other Neuro Impairments/Disorders - PT STATES FAMILY HX SCIATICA Psychiatric History: Reports: Hx Anxiety, Hx Depression, Hx Bipolar Disorder Denies: Hx Panic Disorder - Surgical History Surgery Procedure, Year, and Place: appendix; tubal ligation. RECTAL POLYPS JUAN Hx Anesthesia Reactions: No - Immunization History Date of Tetanus Vaccine: unk Date of Influenza Vaccine: fall 2016 Infectious Disease History: Reports: Hx Hepatitis - C, Hx Human Immunodeficiency Virus (HIV) - on meds - Family History Known Family History: Positive: Hypertension, Diabetes, Other - sciatica - Social History Alcohol Use: Weekly Alcohol Amount: 1 beer last night Hx Substance Use: Yes Substance Use Type: Reports: Marijuana Substance Use Comment - Amount & Last Used: daily Hx Tobacco Use: Yes Smoking Status (MU): Light Every Day Tobacco Smoker Type: Cigarettes Amount Used/How Often: 1/2PPD Have You Smoked in the Last Year: Yes Review of Systems Negative: Fever Positive: Other - Back pain, RLE pain. All Other Systems Reviewed And Are Negative: Yes Physical Exam - Summary Physical Exam Summary: VITAL SIGNS: Reviewed. GENERAL: Patient is a well-developed and nourished FEMALE who is lying comfortable in the stretcher. Patient is not in any acute respiratory distress. HEAD AND FACE: No signs of trauma. No ecchymosis, hematomas or skull depressions. No sinus tenderness. EYES: PERRLA, EOMI x 2, No injected conjunctiva, no nystagmus. EARS: Hearing grossly intact. Ear canals and tympanic membranes are within normal limits. MOUTH: Oropharynx within normal limits. NECK: Supple, trachea is midline, no adenopathy, no JVD, no carotid bruit, no c- spine tenderness, neck with full ROM. CHEST: Symmetric, no tenderness at palpation LUNGS: Clear to auscultation bilaterally. No wheezing or crackles. CVS: Regular rate and rhythm, S1 and S2 present, no murmurs or gallops appreciated. ABDOMEN: Soft, non-tender. No signs of distention. No rebound no guarding, and no masses palpated. Bowel sounds are normal. EXTREMITIES: FROM in all major joints, no edema, no cyanosis or clubbing. Tenderness over the right pain buttock. Right leg raise test positive at 20 degrees passive. Neurovascularly intact. NEURO: Alert and oriented x 3. No acute neurological deficits. Speech is normal and follows commands. SKIN: Dry and warm Triage Information Reviewed: Yes Vital Signs Reviewed: Yes Lower Extremity Course/Dx - Course Course Of Treatment: This patient is a 58 year old female with hx of sciatica with right leg pain and back pain. Physical exam results were consistent with sciatica. A plan for discharge was discussed with the patient and she was agreeable with this plan. - Diagnoses Provider Diagnoses: Sciatica Discharge - Sign-Out/Discharge Documenting (check all that apply): Patient Departure - Discharge Patient Received Moderate/Deep Sedation with Procedure: No - Discharge Plan Condition: Stable Disposition: HOME Patient Education Materials: Sciatica (ED) Referrals: Antione Dasilva MD [Primary Care Provider] - Additional Instructions: Return to ED with any new or worsening symptoms. - Attestation Statements Document Initiated by Scribe: Yes Documenting Scribe: Ranjit Morales Provider For Whom Scribe is Documenting (Include Credential): Erika Escobar MD Scribe Attestation: IRanjit, scribed for Erika Escobar MD on 09/23/18 at 0425. Status of Scribe Document: Ready
[2018-09-23] MEDS ORDERED: Ketorolac INJ* 30 MG/ML 1 ML VIAL IM ONE (03:20)
[2018-09-23] MEDS ORDERED: Cyclobenzaprine TAB* 10 MG PO ONE (03:21)
[2018-09-23] MEDS ORDERED: traMADol TAB* 50 MG PO ONE (03:21)
[2018-09-23 04:38] VITALS: BP 146/92
== END 2018-09-23 04:39 | disposition home or self-care (01) ==
LOC: ED 02:56
DX: M54.41 Lumbago with sciatica, right side (principal); Z21 Asymptomatic human immunodeficiency virus [HIV] infection status; Z88.5 Allergy status to narcotic agent; Z88.8 Allergy status to other drugs, medicaments and biological substances; F17.210 Nicotine dependence, cigarettes, uncomplicated
CPT/HCPCS: 96372; 99283; A9270-GY; J1885

== ENCOUNTER 2018-10-09 06:31 | Emergency (ER) | payer OTHER ==
[2018-10-09] MEDS ORDERED: Meclizine TAB* 12.5 MG PO ONE (08:05)
--- NOTE | 2018-10-09 08:59 | ED ---
Dizziness - HPI Summary HPI Summary: Patient is a 58-year-old female with a history of dizziness/vertigo presenting to the ED with acute onset dizziness this morning after getting out of bed. She states this the typical time she gets dizziness and vertigo. She denies any other symptoms including chest pain, shortness of breath, abdominal pain, headache. She states she does not feel as though the room is spinning, however feels "off balance." Patient states she does not have her refill of meclizine. - History Of Current Complaint Chief Complaint: EDDizziness Stated Complaint: DIZZINESS PER EMS Time Seen by Provider: 10/09/18 06:38 Hx Obtained From: Patient Timing: Constant Severity Initially: Moderate Severity Currently: Moderate Character: Dizzy Aggravating Factor(s): Nothing Alleviating Factor(s): Nothing Associated Signs And Symptoms: Positive: Negative - Risk Factors Cardiac Risk Factors: Negative CVA Risk Factor: Negative - Allergies/Home Medications Allergies/Adverse Reactions: Allergies Allergy/AdvReac Type Severity Reaction Status Date / Time midazolam [From Versed] Allergy Unknown Verified 10/09/18 06:52 Reaction Details oxycodone AdvReac See Comment Verified 10/09/18 06:52 Home Medications: Home Medications tiZANidine TAB* [Zanaflex TAB*] 4 mg PO Q6HR 10/09/18 [History Confirmed ] PMH/Surg Hx/FS Hx/Imm Hx Previously Healthy: Yes Endocrine/Hematology History: Reports: Other Endocrine/Hematological Disorders - herpes, hiv Denies: Hx Anticoagulant Therapy, Hx Blood Disorders, Hx Diabetes, Hx Unexplained Bleeding Cardiovascular History: Reports: Hx Hypertension, Other Cardiovascular Problems/ Disorders - HAD AN ECHO ON 03/22 SEES Denies: Hx Pacemaker/ICD Respiratory History: Reports: Hx Asthma GI History: Reports: Hx Gastroesophageal Reflux Disease, Other GI Disorders - Hep C History: Denies: Hx Renal Disease Musculoskeletal History: Reports: Other Musculoskeletal History - LEFT KNEE, sciatica issues Comment Only: Hx Arthritis - GENRALIZED Sensory History: Reports: Hx Contacts or Glasses - GLASSES Denies: Hx Legally Blind, Hx Deafness, Hx Hearing Aid Opthamlomology History: Reports: Hx Contacts or Glasses - GLASSES Denies: Hx Legally Blind Neurological History: Reports: Other Neuro Impairments/Disorders - PT STATES FAMILY HX SCIATICA Psychiatric History: Reports: Hx Anxiety, Hx Depression, Hx Bipolar Disorder Denies: Hx Panic Disorder - Surgical History Surgery Procedure, Year, and Place: appendix; tubal ligation. RECTAL POLYPS JUAN Hx Anesthesia Reactions: No - Immunization History Date of Tetanus Vaccine: unk Date of Influenza Vaccine: fall 2016 Hx Pertussis Vaccination: No Immunizations Up to Date: Yes Infectious Disease History: Yes Infectious Disease History: Reports: Hx Hepatitis - C, Hx Human Immunodeficiency Virus (HIV) - on meds Denies: Traveled Outside the [place] in Last 30 Days - Family History Known Family History: Positive: Hypertension, Diabetes, Other - sciatica - Social History Occupation: Unemployed Lives: With Family Alcohol Use: None Alcohol Amount: 1 beer last night Hx Substance Use: Yes Substance Use Type: Reports: Marijuana Substance Use Comment - Amount & Last Used: daily Hx Tobacco Use: Yes Smoking Status (MU): Light Every Day Tobacco Smoker Type: Cigarettes Amount Used/How Often: 1/2PPD Have You Smoked in the Last Year: Yes Review of Systems Negative: Fever, Chills, Fatigue, Skin Diaphoresis Negative: Palpitations, Chest Pain Negative: Shortness Of Breath, Cough Negative: Arthralgia, Myalgia Negative: Bruising Neurological: Other - dizziness All Other Systems Reviewed And Are Negative: Yes Physical Exam Triage Information Reviewed: Yes Vital Signs On Initial Exam: Initial Vitals Temp Pulse Resp BP Pulse Ox 98.0 F 92 20 134/97 96 10/09/18 06:38 10/09/18 06:38 10/09/18 06:38 10/09/18 06:38 10/09/18 06:38 Vital Signs Reviewed: Yes Appearance: Positive: Well-Appearing, Well-Nourished Skin: Positive: Warm, Skin Color Reflects Adequate Perfusion Head/Face: Positive: Normal Head/Face Inspection Neck: Positive: Supple, No Lymphadenopathy Respiratory/Lung Sounds: Positive: Clear to Auscultation, Breath Sounds Present Cardiovascular: Positive: RRR, Pulses are Symmetrical in both Upper and Lower Extremities Musculoskeletal: Positive: Strength/ROM Intact Neurological: Positive: Alert, Oriented to Person Place, Time, Speech Normal Psychiatric: Positive: Affect/Mood Appropriate Diagnostics - Vital Signs Vital Signs Temp Pulse Resp BP Pulse Ox 10/09/18 07:00 87 18 91 10/09/18 06:57 89 19 92 10/09/18 06:39 86 14 134/97 92 10/09/18 06:38 98.0 F 92 20 134/97 96 - Laboratory Lab Statement: Any lab studies that have been ordered have been reviewed, and results considered in the medical decision making process. Dizzy Course/Dx - Course Course Of Treatment: During his course of treatment the patient is evaluated for dizziness. Patient states she would not like to have any blood work drawn and would only like to have her meclizine at this time. She is here due to not having her meclizine refilled at this point and continues to have dizziness without it. She is given 25 mg meclizine with good effect. Patient states she is currently asymptomatic at this time. EKG shows normal sinus rhythm with no abnormalities. Patient will be discharged home with vertigo. - Diagnoses Differential Diagnosis/HQI/PQRI: Other - vertigo Provider Diagnoses: Dizziness Discharge - Sign-Out/Discharge Documenting (check all that apply): Patient Departure Patient Received Moderate/Deep Sedation with Procedure: No - Discharge Plan Condition: Stable Disposition: HOME Prescriptions: Meclizine TAB* [Antivert 12.5 TAB*] 12.5 mg PO TID PRN #20 tab MDD 3 PRN Reason: Dizziness Patient Education Materials: Dizziness (ED) Referrals: Antione Dasilva MD [Primary Care Provider] - Additional Instructions: Meclizine three times daily for dizziness Drink plenty of water - Billing Disposition and Condition Condition: STABLE Disposition: Home
[2018-10-09 09:19] VITALS: BP 155/90
== END 2018-10-09 09:18 | disposition home or self-care (01) ==
LOC: ED 06:31
DX: R42 Dizziness and giddiness (principal); Z88.5 Allergy status to narcotic agent; Z88.8 Allergy status to other drugs, medicaments and biological substances; Z79.899 Other long term (current) drug therapy; Z21 Asymptomatic human immunodeficiency virus [HIV] infection status; I10 Essential (primary) hypertension; J45.909 Unspecified asthma, uncomplicated; K21.9 Gastro-esophageal reflux disease without esophagitis; F17.210 Nicotine dependence, cigarettes, uncomplicated
CPT/HCPCS: 93005; 99283; A9270-GY

== ENCOUNTER 2018-11-14 16:49 | Emergency (ER) | payer OTHER ==
[2018-11-14] MEDS ORDERED: Ketorolac INJ* 30 MG/ML 1 ML VIAL IM ONE (17:14)
--- NOTE | 2018-11-14 17:16 | ED ---
Back Pain - HPI Summary HPI Summary: Patient complains of chronic back pain 3 months, with increase in chronic pain level today. Denies trauma, fever, cough, sore throat, CP, SOB, N/V/D, abdominal pain, change in urine, change in BM. Patient received prescription for tizanidine on 11/09 from PCP, has a pending appointment with pain management and 1 month. Medical history is asthma, hepatitis B, HIV, herpes, HTN. - History of Current Complaint Chief Complaint: EDBackInjuryPain Stated Complaint: BACK PAIN PER EMS Time Seen by Provider: 11/14/18 16:56 Hx Obtained From: Patient Onset/Duration: Sudden Onset, Lasting Hours Onset/Duration: Started Hours Ago Timing: Constant Back Pain Location: Is Discrete @ Severity Initially: Moderate Severity Currently: Severe Pain Intensity: 10 Pain Scale Used: 0-10 Numeric Character: Dull, Aching Aggravating Symptom(s): Movement, Bending Associated Signs And Symptoms: Positive: Negative - Allergies/Home Medications Allergies/Adverse Reactions: Allergies Allergy/AdvReac Type Severity Reaction Status Date / Time midazolam [From Versed] Allergy Unknown Verified 11/14/18 16:58 Reaction Details oxycodone AdvReac See Comment Verified 11/14/18 16:58 PMH/Surg Hx/FS Hx/Imm Hx Endocrine/Hematology History: Reports: Other Endocrine/Hematological Disorders - herpes, hiv Denies: Hx Anticoagulant Therapy, Hx Blood Disorders, Hx Diabetes, Hx Unexplained Bleeding Cardiovascular History: Reports: Hx Hypertension, Other Cardiovascular Problems/ Disorders - HAD AN ECHO ON 03/22 SEES Denies: Hx Pacemaker/ICD Respiratory History: Reports: Hx Asthma GI History: Reports: Hx Gastroesophageal Reflux Disease, Other GI Disorders - Hep C History: Denies: Hx Renal Disease Musculoskeletal History: Reports: Other Musculoskeletal History - LEFT KNEE, sciatica issues Comment Only: Hx Arthritis - GENRALIZED Sensory History: Reports: Hx Contacts or Glasses - GLASSES Denies: Hx Legally Blind, Hx Deafness, Hx Hearing Aid Opthamlomology History: Reports: Hx Contacts or Glasses - GLASSES Denies: Hx Legally Blind Neurological History: Reports: Other Neuro Impairments/Disorders - PT STATES FAMILY HX SCIATICA Psychiatric History: Reports: Hx Anxiety, Hx Depression, Hx Bipolar Disorder Denies: Hx Panic Disorder - Surgical History Surgery Procedure, Year, and Place: appendix; tubal ligation. RECTAL POLYPS JUAN Hx Anesthesia Reactions: No - Immunization History Date of Tetanus Vaccine: unk Date of Influenza Vaccine: fall 2016 Infectious Disease History: No Infectious Disease History: Reports: Hx Hepatitis - C, Hx Human Immunodeficiency Virus (HIV) - on meds Denies: Traveled Outside the [place] in Last 30 Days - Family History Known Family History: Positive: Hypertension, Diabetes, Other - sciatica - Social History Alcohol Use: None Alcohol Amount: 1 beer last night Hx Substance Use: Yes Substance Use Type: Reports: Marijuana Substance Use Comment - Amount & Last Used: daily Hx Tobacco Use: Yes Smoking Status (MU): Light Every Day Tobacco Smoker Type: Cigarettes Amount Used/How Often: 1/2PPD Have You Smoked in the Last Year: Yes Review of Systems Constitutional: Negative Eyes: Negative ENT: Negative Cardiovascular: Negative Respiratory: Negative Gastrointestinal: Negative Genitourinary: Negative Musculoskeletal: Other Skin: Negative Neurological: Negative Psychological: Normal All Other Systems Reviewed And Are Negative: Yes Physical Exam - Summary Physical Exam Summary: Pain with palpation of lower right back. No ecchymosis, erythema, swelling, deformity, mass noted. No bony point tenderness. PMS intact distally in bilateral lower extremities. Triage Information Reviewed: Yes Vital Signs On Initial Exam: Initial Vitals Temp Pulse Resp BP Pulse Ox 97.9 F 85 18 146/90 95 11/14/18 16:51 11/14/18 16:51 11/14/18 16:51 11/14/18 16:51 11/14/18 16:51 Vital Signs Reviewed: Yes Appearance: Positive: Well-Appearing Skin: Positive: Warm Head/Face: Positive: Normal Head/Face Inspection Eyes: Positive: Normal Neck: Positive: Supple Respiratory/Lung Sounds: Positive: Clear to Auscultation Cardiovascular: Positive: Normal Abdomen Description: Positive: Nontender Musculoskeletal: Positive: Normal Neurological: Positive: Normal Psychiatric: Positive: Normal AVPU Assessment: Alert - [place] Coma Scale Best Eye Response: 4 - Spontaneous Best Motor Response: 6 - Obeys Commands Best Verbal Response: 5 - Oriented Coma Scale Total: 15 Diagnostics - Vital Signs Vital Signs Temp Pulse Resp BP Pulse Ox 11/14/18 16:51 97.9 F 85 18 146/90 95 - Laboratory Lab Statement: Any lab studies that have been ordered have been reviewed, and results considered in the medical decision making process. Back Pain Course/Dx - Course Course Of Treatment: Patient complains of chronic back pain 3 months, with increase in chronic pain level today. Denies trauma, fever, cough, sore throat , CP, SOB, N/V/D, abdominal pain, change in urine, change in BM. Patient received prescription for tizanidine on 11/09 from PCP, has a pending appointment with pain management and 1 month. Medical history is asthma, hepatitis B, HIV, herpes, HTN. Vital signs within normal limits. Patient given Toradol 30 mg IM , lidocaine patch and prednisone. Mild improvement in symptoms. Patient allergic to Versed, no Valium given. Rx for prednisone. Advised patient continue with her prescription for tizanidine. - Diagnoses Provider Diagnoses: Sciatica Discharge - Sign-Out/Discharge Documenting (check all that apply): Patient Departure Patient Received Moderate/Deep Sedation with Procedure: No - Discharge Plan Condition: Stable Disposition: HOME Prescriptions: predniSONE TAB* [Deltasone 20 MG TAB*] 40 mg PO DAILY 5 Days #10 tab Patient Education Materials: Sciatica (ED) Referrals: Antione Dasilva MD [Primary Care Provider] - Additional Instructions: Continue to take tizanidine as directed. Take prednisone as directed. Follow- up with primary care and pain management for chronic back pain. Return to the ED for any new or worsening symptoms. - Billing Disposition and Condition Condition: STABLE Disposition: Home - Attestation Statements Provider Attestation: I am administratively signing this document. I was available for consultation for this patient. I did not evaluate the patient, did not have a doctor/patient relationship with the patient, or participate in any medical decision making or disposition decisions unless I am specifically named in the chart as having consulted on the patient. If I have consulted on the patient, please see my own ED note on the patient encounter. Krzysztof Corbin MD
[2018-11-14] MEDS ORDERED: Lidocaine PATCH 5%* 1 PATCH TRANSDERM SCH (18:00)
[2018-11-14] MEDS ORDERED: Acetaminophen TAB* 325 MG PO ONE (18:31)
[2018-11-14] MEDS ORDERED: predniSONE TAB* 20 MG PO ONE (18:31)
[2018-11-14 18:43] VITALS: BP 0/0
[2018-11-14] MEDS ORDERED: Lidocaine Patch REMOVE* 1 NOTE MISC SCH (21:00)
== END 2018-11-14 18:43 | disposition home or self-care (01) ==
LOC: ED 16:49
DX: M54.30 Sciatica, unspecified side (principal); I10 Essential (primary) hypertension; J45.909 Unspecified asthma, uncomplicated; K21.9 Gastro-esophageal reflux disease without esophagitis; F17.210 Nicotine dependence, cigarettes, uncomplicated; Z21 Asymptomatic human immunodeficiency virus [HIV] infection status; Z88.8 Allergy status to other drugs, medicaments and biological substances; Z88.5 Allergy status to narcotic agent
CPT/HCPCS: 96372; 99283; A9270-GY; J1885; J7512

== ENCOUNTER 2018-11-15 08:54 | Emergency (ER) | payer OTHER ==
--- NOTE | 2018-11-15 09:13 | ED ---
Neurological HPI - HPI Summary HPI Summary: Pt is 57 y/o F being brought in as a code hearn by EMS to [facility] for a speech defect that began at 0800 this morning. EMS was called by her cousin for the pt' s speech defects. The pt also stated that she had R lower extremity numbness and weakness with slurred speech and blurry vision. She stated that she was not in pain. She has a PMHx of herpes and hypertension. She stated no aggravating or alleviating factors. She denies any fever, chills, headaches, SOB, N/V, and palpitations. ETA is 5 minutes from the call and the pt will arrive around 0848. The pt arrived at 0852 to [facility]. Pt was last known well at 0800 this morning. She elaborated more and stated that her blurry vision started on . She also started Demerol on 11/14/18. She also stated that her R leg was numb starting a month ago after a visit to her PCP's office. Pt stated that she was supposed to go visit a wood pattern maker for a checkup later today. She stated that she has glasses but is only supposed to wear them when she reads. - History of Current Complaint Stated Complaint: CODE OJHNSON Time Seen by Provider: 11/15/18 08:57 Hx Obtained From: Patient Onset/Duration: Sudden Onset - 0800, Started hours ago - 1, Still Present Timing: Constant Current Severity: None Pain Intensity: 0 Pain Scale Used: 0-10 Numeric Aggravating: Nothing Alleviating: Nothing Associated Signs and Symptoms: Positive: Visual Changes - blurry vision, Weakness - R LE, Impaired Speech - slurred speech, Numbness - R LE. Negative: Headache, Nausea/Vomiting, Fever, Chest Pain TPA Considered: No - NIH score is not high enough to need TPA - Allergy/Home Medications Allergies/Adverse Reactions: Allergies Allergy/AdvReac Type Severity Reaction Status Date / Time midazolam [From Versed] Allergy Unknown Verified 11/14/18 16:58 Reaction Details oxycodone AdvReac See Comment Verified 11/14/18 16:58 PMH/Surg Hx/FS Hx/Imm Hx Previously Healthy: No Endocrine/Hematology History: Reports: Other Endocrine/Hematological Disorders - herpes, hiv Denies: Hx Anticoagulant Therapy, Hx Blood Disorders, Hx Diabetes, Hx Unexplained Bleeding Cardiovascular History: Reports: Hx Hypertension, Other Cardiovascular Problems/ Disorders - HAD AN ECHO ON 03/22 SEES Denies: Hx Pacemaker/ICD Respiratory History: Reports: Hx Asthma GI History: Reports: Hx Gastroesophageal Reflux Disease, Other GI Disorders - Hep C History: Denies: Hx Renal Disease Musculoskeletal History: Reports: Other Musculoskeletal History - LEFT KNEE, sciatica issues Comment Only: Hx Arthritis - GENRALIZED Sensory History: Reports: Hx Contacts or Glasses - GLASSES Denies: Hx Legally Blind, Hx Deafness, Hx Hearing Aid Opthamlomology History: Reports: Hx Contacts or Glasses - GLASSES Denies: Hx Legally Blind Neurological History: Reports: Other Neuro Impairments/Disorders - PT STATES FAMILY HX SCIATICA Psychiatric History: Reports: Hx Anxiety, Hx Depression, Hx Bipolar Disorder Denies: Hx Panic Disorder - Surgical History Surgery Procedure, Year, and Place: appendix; tubal ligation. RECTAL POLYPS JUAN Hx Anesthesia Reactions: No - Immunization History Date of Tetanus Vaccine: unk Date of Influenza Vaccine: fall 2016 Infectious Disease History: Reports: Hx Hepatitis - C, Hx Human Immunodeficiency Virus (HIV) - on meds - Family History Known Family History: Positive: Hypertension, Diabetes, Other - sciatica - Social History Alcohol Use: None Hx Substance Use: Yes Substance Use Type: Reports: Marijuana Substance Use Comment - Amount & Last Used: daily Hx Tobacco Use: Yes Smoking Status (MU): Former Smoker Type: Cigarettes Amount Used/How Often: 1/2PPD Have You Smoked in the Last Year: Yes Review of Systems Negative: Fever, Chills Positive: Blurred Vision Negative: Palpitations, Chest Pain Negative: Shortness Of Breath Negative: Vomiting, Nausea Positive: Weakness - R LE, Numbness - R LE, Slurred Speech. Negative: Headache All Other Systems Reviewed And Are Negative: Yes Physical Exam - Summary Physical Exam Summary: GENERAL: Patient is a well-developed and nourished F who is lying comfortable in the stretcher. Patient is not in any acute respiratory distress. HEAD AND FACE: Normocephalic EYES: PERRLA, EOMI x 2. EARS: Hearing grossly intact. MOUTH: Oropharynx within normal limits. NECK: Supple, trachea is midline, no adenopathy, no JVD, no carotid bruit. CHEST: Symmetric, no tenderness at palpation LUNGS: Clear to auscultation bilaterally. No wheezing or crackles. CVS: Regular rate and rhythm, S1 and S2 present, no murmurs or gallops appreciated. ABDOMEN: Soft, non-tender. Bowel sounds are normal. No abnormal abdominal pulsations. EXTREMITIES: Full ROM in all major joints, no edema, no cyanosis or clubbing. NEURO: Alert and oriented x 3. No acute neurological deficits. Speech is normal and follows commands. Neuro exam extended: Cranial nerves II-XII grossly intact, no dysmetria finger to nose, nml heel to osullivan SKIN: Dry and warm Triage Information Reviewed: Yes Vital Signs On Initial Exam: Initial Vital Signs Temp 97.9 F 11/15/18 09:14 Pulse 83 11/15/18 09:14 Resp 19 11/15/18 09:14 BP 161/104 11/15/18 09:14 Pulse Ox 96 11/15/18 09:14 Vital Signs Reviewed: Yes Diagnostics - Laboratory Result Diagrams: 11/15/18 09:11 11/15/18 09:11 Lab Statement: Any lab studies that have been ordered have been reviewed, and results considered in the medical decision making process. - Radiology CXR Radiology Interpretation Completed By: Radiologist Summary of Radiographic Findings: NO ACTIVE CARDIOPULMONARY DISEASE IS NOTED. ED physician has reviewed this report. - CT Brain CT CT Interpretation Completed By: Radiologist Summary of CT Findings: There is no evidence of intracranial mass or hemorrhage noted. Dr. Mendoza was notified of the results at 9:05 AM - EKG 0927 Cardiac Rate: NL - 82 BPM EKG Rhythm: Sinus Rhythm ST Segment: Normal Ectopy: None EKG Comparison: No Significant Change Summary of EKG Findings: EKG at 0927 reveals normal sinus rhythm with a rate of 82 BPM, nml axis, nml intervals. No STEMI. No acute changes. Interpreted by Dr. Mendoza at 0935 11/15/18. NIH Scale - NIH Scale Level of Consciousness: Alert/Keenly Responsive Ask Patient the Month and His/Her Age: Both Correct Ask Pt to Open/Close Eyes and Napper Tender/Release Non-Paretic Hand: Both Correctly Best Gaze (Only Horizontal Eye Movement): Normal Visual Field Testing: No Visual Loss Facial Paresis-Pt to Smile & Close Eyes or Grimace Symmetry: Normal/Symmetrical Motor Function - Right Arm: No Drift-Holds 10 Seconds Motor Function - Left Arm: No Drift-Holds 10 Seconds Motor Function - Right Leg: No Drift-Holds 10 Seconds Motor Function - Left Leg: No Drift-Holds 10 Seconds Limb Ataxia-Must be out of Proportion to Weakness Present: Absent Sensory (Use Pinprick to Test Arms/Legs/Trunk/Face): Normal Best Language (Describe Picture, Name Items): No Aphasia Dysarthria (Read Several Words): Normal Extinction and Inattention: No Abnormality Total Score: 0 Course/Dx - Course Course Of Treatment: Pt is 57 y/o F being brought in as a code hearn by EMS to [facility] for a speech defect that began at 0800 this morning. The pt also stated that she had R lower extremity numbness and weakness with slurred speech and blurry vision. . ETA is 5 minutes from the call and the pt will arrive around 0848. Dr. Edmondson was the neurologist who arrived to help with the evaluation of the pt at 0849. The pt arrived at 0852 to [facility] and was evaluated with TPA at the bedside. Pt was brought to CT immediately at 0854. The brain CT found the following: There is no evidence of intracranial mass or hemorrhage noted. Dr. Mendoza was notified of the results at 9:05 AM. TPA not considered due to the low NIH score. The pt was last known well at [address] Edmondson stated at 0936 that the pt did not have a TIA or a CVA and that her symptoms were more closely related to a drug interaction with Demerol. Her PE found no abnormal findings. Her EKG at 0927 reveals normal sinus rhythm with a rate of 82 BPM, nml axis, nml intervals. No STEMI. No acute changes. Her CXR showed that she has NO ACTIVE CARDIOPULMONARY DISEASE IS NOTED. She has abnormal urine values in protein. RBC, squamous epith cells, and ascorbic acid. Pt stated that she began to feel nauseas and was given Zofran. Pt stated that she usually gets nauseas due to her daily medications. I discussed results with patient, and she reports feeling better. She is hemodynamically stable and safe for discharge. Strict return precautions given and she will otherwise follow up with her PCP. She will be discharged with a Dx of encounter for a physical exam. - Diagnoses Provider Diagnoses: Encounter for physical examination Discharge - Sign-Out/Discharge Documenting (check all that apply): Patient Departure - discharge Patient Received Moderate/Deep Sedation with Procedure: No - Discharge Plan Condition: Stable Disposition: HOME Patient Education Materials: Normal Exam (ED) Referrals: Antione Dasilva MD [Primary Care Provider] - 2 Days Additional Instructions: Follow up with your primary care physician in 1-3 days. RETURN TO THE EMERGENCY DEPARTMENT FOR CHANGING OR WORSENING SYMPTOMS. - Billing Disposition and Condition Condition: STABLE Disposition: Home - Attestation Statements Document Initiated by Scribe: Yes Documenting Scribe: Donnie Zabala Provider For Whom Scribe is Documenting (Include Credential): Donte Mendoza MD Scribe Attestation: Donnie Gabriel, scribed for Donte Mendoza MD on 11/15/18 at 1818. Scribe Documentation Reviewed: Yes Provider Attestation: The documentation as recorded by the Donnie pelletier accurately reflects the service I personally performed and the decisions made by Donte spear MD Status of Scribe Document: Viewed
[2018-11-15 09:27] LABS: Hematocrit 48 % (35-47); Hemoglobin 16.6 g/dL (12.0-16.0); Mean Corpuscular HGB Conc 34 g/dL (31-36); Mean Corpuscular Hemoglobin 32 pg (27-31); Mean Corpuscular Volume 93 fL (80-97); Mean Platelet Volume 9.4 fL (7.4-10.4); Platelet Count 277 10^3/uL (150-450); Red Cell Distribution Width 14 % (10-15); White Blood Count 11.4 10^3/uL (3.5-10.8)
[2018-11-15 09:28] LABS: ABS Basophils 0.2 10^3/ul (0-0.2); ABS Lymphocytes 2.1 10^3/ul (1.0-4.8); ABS Monocytes 0.4 10^3/ul (0-0.8); ABS Neutrophils 8.6 10^3/ul (1.5-7.7); Eosinophil % 0.4 %; Lymphocyte % 18.9 %; Nucleated Red Blood Cells % 0.1
[2018-11-15 09:37] LABS: Activated Partial Thrombo Time 41.8 seconds (26.0-38.0); INR 0.97 (0.82-1.09)
[2018-11-15 09:39] LABS: Albumin/Globulin Ratio 1.4 (1-3); BUN/Creatinine Ratio 14.2 (8-20); Calcium 10.7 mg/dL (8.6-10.3); EGFR African American 64.7 (>60); EGFR Non-African American 53.4 (>60); Globulin 3.6 g/dL (2-4); HDL Cholesterol 46.9 mg/dL; Potassium 4.4 mmol/L (3.5-5.0); Total Bilirubin 0.3 mg/dL (0.2-1.0); Total Protein 8.6 g/dL (6.4-8.9)
[2018-11-15 09:40] LABS: Troponin I 0.01 ng/mL (<0.04)
[2018-11-15] MEDS ORDERED: Ondansetron INJ* 2 MG/ML VIAL IV ONE (10:33)
[2018-11-15] MEDS ORDERED: NS 0.9% 1000 ML** 1,000 ML IV ONE (10:33)
[2018-11-15 11:25] LABS: Urine Appearance Cloudy; Urine Bacteria Absent (Absent); Urine Bilirubin Negative (Negative); Urine Blood Negative (Negative); Urine Color Yellow; Urine Glucose Negative (Negative); Urine Ketones Negative (Negative); Urine Nitrite Negative (Negative); Urine Protein 2+(100 mg/dL) (Negative); Urine Red Blood Cell 1+(3-5/hpf) (Absent); Urine Specific Gravity 1.028 (1.010-1.030); Urine Squamous Epithelial Cell Present (Absent); Urine Urobilinogen Negative (Negative); Urine White Blood Cell Trace(0-5/hpf) (Absent)
[2018-11-15 11:35] LABS: TSH (Thyroid Stimulating Horm) 0.42 mcIU/mL (0.34-5.60)
[2018-11-15 11:54] VITALS: BP 134/103
--- NOTE | 2018-11-15 12:32 | CONS ---
NEUROLOGY CONSULTATION NOTE: DATE OF CONSULT: 11/15/18 - EMERGENCY DEPT. CONSULTING PROVIDER: Dr. Mendoza. REASON FOR CONSULT: Code ramos was activated due to the patient's symptoms of visual disturbance and numbness in the right leg. CHIEF COMPLAINT: "I have twilight spots in my vision." HISTORY OF PRESENT ILLNESS: Ms. Bowman is a 58-year-old female with past medical history significant for HIV, herpes, hypertension, asthma, GERD, hepatitis B, anxiety, depression, bipolar disorder, who states that she has been in her usual state of health for the past few days except for she developed intermittent scotomas in her vision as well as increasing numbness of the inner medial surface of the right leg. She stated that the visual disturbance started 3 days ago. She sees an extra flash of light in both eyes. This lasts for 15 to 20 minutes. She stated that she recently had seen her transfusion nurse and had new glasses. She does have mild headaches, but no photophobia or nausea with these symptoms. In addition, she has noticed an increased back pain that radiates to the right leg. She has numbness in the medial surface of the right leg extending into the great toe. She denied any fevers or chills. She denied any falls. The patient was seen yesterday in the ER for back pain. The patient was started on Demerol yesterday. Since starting Demerol, she noticed increasing stuttering speech. The stuttering speech fluctuates. There is no dysarthria or aphasia. The patient presented to the ER today because her sister and cousin forced her to call EMS for her stuttering speech. PAST MEDICAL HISTORY: HIV, herpes, hypertension, asthma, GERD, hepatitis B, anxiety, depression, bipolar disorder. PAST SURGICAL HISTORY: Status post appendectomy, tubal ligation, repair of rectal prolapse, and knee surgery in March 2018. MEDICATIONS: 1. Recently started Demerol, unknown dose. 2. Colace 100 mg 3 times daily. 3. Omeprazole 20 mg oral daily. 4. Vitamin D. 5. Zyrtec. 6. Multivitamin. 7. Baraclude 0.5 mg oral daily. 8. Gabapentin 600 mg 3 times a day as reported by the patient but on her medication list, it states that she takes 1200 in the morning, 600 in the afternoon, and 1200 at bedtime. 9. Flexeril 10 mg twice daily. 10. Tessalon 100 mg oral 3 times daily. 11. Albuterol 2 puffs inhalations every 4 hours. 12. Lamotrigine 200 mg twice daily. 13. Pravastatin 10 mg oral every evening. 14. Zofran 4 mg daily. 15. Singulair 10 mg oral every evening. 16. Meclizine 25 mg oral 3 times daily as needed. 17. Hydroxyzine 25 mg oral daily. 18. Valacyclovir 1 g oral every morning. 19. Amlodipine 5 mg every day. ALLERGIES: VERSED and OXYCODONE. FAMILY HISTORY: No family history of stroke or seizure. SOCIAL HISTORY: The patient is a smoker, smokes a half a pack for the past 31 years. She rarely drinks. She lives alone with her cat. Her sister, Ligia, is her surrogate decision maker. REVIEW OF SYSTEMS: A 14-point review of systems was obtained and otherwise negative except for what was mentioned in the HPI. PHYSICAL EXAM: Vital Signs: Temperature of 97.9, pulse of 83, respiratory rate of 12, oxygen saturation of 98%, blood pressure of 155/87. General: Well- nourished, well-developed, entertaining female, who is in no acute distress. Head: Atraumatic, normocephalic. Eyes: Conjunctivae/corneas are clear. Neck is supple and symmetrical with no lymphadenopathy. Cardiac: Regular rate and rhythm with normal S1, S2. Respiratory: Clear to auscultation bilaterally with no wheezing or rhonchi. Extremities: Normal range of motion. No hammertoes or high arches. Skin: No skin lesions or lacerations. Psych: Broad affect, energetic mood. She is laughing with the examiner. Easy to establish rapport. Neurological Examination: Mental Status: Awake, alert, and oriented to person, place, time, and general circumstances. Language and speech including expression, repetition and comprehension were assessed and found to be normal. She does have mild intermittent distractible stuttering speech. Cranial Nerves: Pupils are equal, round, and reactive to light. Extraocular muscles are intact. Normal temperature sensation bilaterally. No facial asymmetry. Tongue is symmetrical and midline with no atrophy or fasciculation. Reflexes: 2+ in the upper and lower extremities symmetrically. Intact sensation to light touch and temperature throughout except for reduced sensation in L4 dermatomal distribution on the right. Coordination: Normal [id number] bilaterally. Gait: Wide-based. No ataxia. DIAGNOSTIC STUDIES/LAB DATA: WBC 11.4, hemoglobin 16, hematocrit of 48, platelet count of 277. Sodium of 137, potassium of 4.4, chloride of 102, carbon dioxide 28, BUN of 15, creatinine of 1.06. LDL was 141. TSH and vitamin B12 were not obtained. CT of the head without contrast was reviewed and reported to show no acute intracranial abnormality. ASSESSMENT AND RECOMMENDATION: Ms. Lara Bowman is a 58-year-old female who was recently started on Demerol, who presented with 3-day history of visual scotomas in the setting of mild headaches, numbness in L4 dermatomal distribution on the right, and stuttering speech. NIH stroke scale was 0. Code ramos was activated. The patient was not a candidate for IV tPA or mechanical thrombectomy as we do not suspect she is having a stroke. 1. Scintillating scotomas with headaches - the patient may have migraine aura or retinal migraines. The headache is mild at this time. She denied any visual obscuration. I recommend she follows up with an life insurance actuary. She could also follow up with a neurologist if her headaches increase in intensity. 2. Suspect L4 radiculopathy on the right - the patient is followed up by her PCP for this problem. This is not a new problem. Demerol was initiated yesterday for pain. She has an appointment with Pain Management next month. An outpatient NCS/EMG of the left lower extremity can be ordered to evaluate for the severity of the radiculopathy. No further in-patient work-up is recommended. 3. Stuttering speech - this is not neurological. There is a functional component to the stuttering. However, toxic or medication related side effects could also be a possibility. Recommend holding off on the Demerol until her speech function improves. I also ordered TSH and vitamin B12 to rule out any metabolic causes for her speech abnormality. The patient does not require hospitalization at this point. I recommend follow up with PCP as an outpatient. If she continues to have symptoms, please follow up with Neurology in 6 to 8 weeks. I will have her see one of our nurse practitioners for hospital followup. [id number]/[facility] #: [id number] [facility] NOYES [facility]IAL HOSPITALGeovanni
== END 2018-11-15 11:52 | disposition home or self-care (01) ==
LOC: ED 08:54
DX: R47.82 Fluency disorder in conditions classified elsewhere (principal); H53.129 Transient visual loss, unspecified eye; R51 Headache; R53.1 Weakness; R20.0 Anesthesia of skin; I10 Essential (primary) hypertension; J45.909 Unspecified asthma, uncomplicated; K21.9 Gastro-esophageal reflux disease without esophagitis; F41.9 Anxiety disorder, unspecified; F31.9 Bipolar disorder, unspecified; Z21 Asymptomatic human immunodeficiency virus [HIV] infection status; Z88.4 Allergy status to anesthetic agent; Z88.5 Allergy status to narcotic agent; Z87.891 Personal history of nicotine dependence
CPT/HCPCS: 36415; 70450; 71045; 80053; 80061; 81003; 81015; 82607; 83605; 84443; 84484; 85025; 85610; 85730; 87086; 93005; 96361; 96374; 99285; J2405

== ENCOUNTER 2018-11-16 03:44 | Emergency (ER) | payer OTHER ==
[2018-11-16] MEDS ORDERED: Ondansetron INJ* 2 MG/ML VIAL IM ONE (03:56)
--- NOTE | 2018-11-16 03:58 | ED ---
GI/ HPI - HPI Summary HPI Summary: A 58 y/o female brought in by [facility] ambulance presents to [facility] with a chief complaint of vomiting today. She also reports nausea and abdominal pain. She says that she was given Demerol and and Tylenol yesterday when she went to the ED for sciatica pain. She claims that she has been taking medications for anxiety but has felt anxious. - History of Current Complaint Chief Complaint: EDAbdPain Time Seen by Provider: 11/16/18 03:51 Stated Complaint: BACK PAIN PER EMS Hx Obtained From: Patient Onset/Duration: Started Hours Ago, Still Present Timing: Constant Severity: Severe Current Severity: Severe Pain Intensity: 10 - out of 10 Location of Pain: Diffuse Pain Characteristics: Unable to describe Associated Signs and Symptoms: Positive: Nausea, Abdominal Pain Aggravating Factor(s): Nothing Alleviating Factor(s): Nothing - Allergy/Home Medications Allergies/Adverse Reactions: Allergies Allergy/AdvReac Type Severity Reaction Status Date / Time midazolam [From Versed] Allergy Unknown Verified 11/14/18 16:58 Reaction Details oxycodone AdvReac See Comment Verified 11/14/18 16:58 PMH/Surg Hx/FS Hx/Imm Hx Endocrine/Hematology History: Reports: Other Endocrine/Hematological Disorders - herpes, hiv Denies: Hx Anticoagulant Therapy, Hx Blood Disorders, Hx Diabetes, Hx Unexplained Bleeding Cardiovascular History: Reports: Hx Hypertension, Other Cardiovascular Problems/ Disorders - HAD AN ECHO ON 03/22 SEES Denies: Hx Pacemaker/ICD Respiratory History: Reports: Hx Asthma GI History: Reports: Hx Gastroesophageal Reflux Disease, Other GI Disorders - Hep C History: Denies: Hx Renal Disease Musculoskeletal History: Reports: Other Musculoskeletal History - LEFT KNEE, sciatica issues Comment Only: Hx Arthritis - GENRALIZED Sensory History: Reports: Hx Contacts or Glasses - GLASSES Denies: Hx Legally Blind, Hx Deafness, Hx Hearing Aid Opthamlomology History: Reports: Hx Contacts or Glasses - GLASSES Denies: Hx Legally Blind Neurological History: Reports: Other Neuro Impairments/Disorders - PT STATES FAMILY HX SCIATICA Psychiatric History: Reports: Hx Anxiety, Hx Depression, Hx Bipolar Disorder Denies: Hx Panic Disorder - Surgical History Surgery Procedure, Year, and Place: appendix; tubal ligation. RECTAL POLYPS JUAN Hx Anesthesia Reactions: No - Immunization History Date of Tetanus Vaccine: unk Date of Influenza Vaccine: fall 2016 Infectious Disease History: No Infectious Disease History: Reports: Hx Hepatitis - C, Hx Human Immunodeficiency Virus (HIV) - on meds Denies: Traveled Outside the [place] in Last 30 Days - Family History Known Family History: Positive: Hypertension, Diabetes, Other - sciatica - Social History Alcohol Use: None Alcohol Amount: 1 beer last night Hx Substance Use: Yes Substance Use Type: Reports: Marijuana Substance Use Comment - Amount & Last Used: daily Hx Tobacco Use: Yes Smoking Status (MU): Former Smoker Type: Cigarettes Amount Used/How Often: 1/2PPD Have You Smoked in the Last Year: Yes Review of Systems Negative: Fever Positive: Abdominal Pain, Vomiting, Nausea Positive: Anxious All Other Systems Reviewed And Are Negative: Yes Physical Exam - Summary Physical Exam Summary: Constitutional: Well-developed, Well-nourished, Alert. (-) Distressed Skin: Warm, Dry HENT: Normocephalic; Atraumatic Eyes: Conjunctiva normal Neck: Musculoskeletal ROM normal neck. (-) JVD, (-) Stridor, (-) Tracheal deviation Cardio: Rhythm regular, rate normal, Heart sounds normal; Intact distal pulses; The pedal pulses are 2+ and symmetric. Radial pulses are 2+ and symmetric. (-) Murmur Pulmonary/Chest wall: Effort normal. (-) Respiratory distress, (-) Wheezes, (-) Rales Abd: Soft, (+) tenderness, (-) Distension, (-) Guarding, (-) Rebound Musculoskeletal: (-) Edema Lymph: (-) Cervical adenopathy Neuro: Alert, Oriented x3 Psych: Mood and affect Normal Triage Information Reviewed: Yes Vital Signs On Initial Exam: Initial Vitals Temp Pulse Resp BP Pulse Ox 98.0 F 87 18 165/90 94 11/16/18 03:45 11/16/18 03:45 11/16/18 03:45 11/16/18 03:45 11/16/18 03:45 Vital Signs Reviewed: Yes Diagnostics - Vital Signs Vital Signs Temp Pulse Resp BP Pulse Ox 11/16/18 03:45 98.0 F 87 18 165/90 94 - Laboratory Result Diagrams: 11/16/18 06:11 11/16/18 06:11 Lab Statement: Any lab studies that have been ordered have been reviewed, and results considered in the medical decision making process. - CT abdomen/pelvis CT Interpretation Completed By: Radiologist Summary of CT Findings: 1. There has been little change from 03/02/2017. No acute interval process is. identified. 2. Small fat filled epigastric ventral wall hernia and broad-based umbilical. hernia. ED physician has reviewed this imaging report. Re-Evaluation - Re-Evaluation First Eval Re-Evaluation Time: 05:28 Change: Unchanged Comment: Pt has diffuse abdominal pain. Second Eval Re-Evaluation Time: 07:20 Change: Improved Comment: no abd tenderness GIGU Course/Dx - Course Course Of Treatment: A 58 y/o female brought in by [facility] ambulance presents to [facility] with a chief complaint of vomiting today. The physical exam revealed abdominal tenderness. In the ED course the patient was given Zofran IM, Toradol IM and Compazine IM. CT abdomen/pelvis impression: 1. There has been little change from 03/02/2017. No acute interval process is. identified. 2. Small fat filled epigastric ventral wall hernia and broad-based umbilical. hernia. Blood work and chemistries obtained and are WNL. Upon re-eval the patient has no abdominal tenderness. She will be discharged home and follow up with her PCP. She is agreeable with this plan. - Diagnoses Provider Diagnoses: Abdominal pain Discharge - Sign-Out/Discharge Documenting (check all that apply): Patient Departure - DC Patient Received Moderate/Deep Sedation with Procedure: No - Discharge Plan Condition: Stable Disposition: HOME Patient Education Materials: Acute Abdominal Pain (ED) Print Language: KHMER Referrals: Antione Dasilva MD [Primary Care Provider] - - Billing Disposition and Condition Condition: STABLE Disposition: Home - Attestation Statements Document Initiated by Cristian: Yes Documenting Scribe: Panchito Diallo Provider For Whom Cristian is Documenting (Include Credential): Colleen Yee MD Scribe Attestation: I, tracy Clarked for Colleen Culp MD on 11/16/18 at 0740. Scribe Documentation Reviewed: Yes Provider Attestation: The documentation as recorded by the Panchito pelletier accurately reflects the service I personally performed and the decisions made by me, Colleen Culp MD Status of Scribe Document: Viewed
[2018-11-16] MEDS ORDERED: Ketorolac INJ* 30 MG/ML 1 ML VIAL IM ONE (05:32)
[2018-11-16] MEDS ORDERED: PROCHLORPERAZINE INJ 5 MG/ML 2 ML VIAL IM ONE (05:33)
[2018-11-16 06:42] LABS: ABS Basophils 0.1 10^3/ul (0-0.2); ABS Eosinophils 0.1 10^3/ul (0-0.6); ABS Lymphocytes 2.2 10^3/ul (1.0-4.8); ABS Monocytes 0.3 10^3/ul (0-0.8); Eosinophil % 0.6 %; Hematocrit 45 % (35-47); Hemoglobin 15.4 g/dL (12.0-16.0); Lymphocyte % 25.5 %; Mean Corpuscular HGB Conc 34 g/dL (31-36); Mean Corpuscular Hemoglobin 32 pg (27-31); Mean Corpuscular Volume 93 fL (80-97); Mean Platelet Volume 9.1 fL (7.4-10.4); Nucleated Red Blood Cells % 0.1; Platelet Count 255 10^3/uL (150-450); Red Blood Count 4.85 10^6 /uL (3.70-4.87); Red Cell Distribution Width 14 % (10-15); White Blood Count 8.7 10^3/uL (3.5-10.8)
[2018-11-16 07:06] LABS: Albumin 5.1 g/dL (3.2-5.2); Albumin/Globulin Ratio 1.6 (1-3); BUN/Creatinine Ratio 11.3 (8-20); C Reactive Protein 4.41 mg/L (<8.01); Calcium 9.7 mg/dL (8.6-10.3); EGFR African American 71.6 (>60); EGFR Non-African American 59.2 (>60); Globulin 3.2 g/dL (2-4); Potassium 4.2 mmol/L (3.5-5.0); Total Bilirubin 0.4 mg/dL (0.2-1.0); Total Protein 8.3 g/dL (6.4-8.9)
[2018-11-16 07:23] VITALS: BP 158/90
== END 2018-11-16 07:28 | disposition home or self-care (01) ==
LOC: ED 03:44
DX: R10.9 Unspecified abdominal pain (principal); K43.9 Ventral hernia without obstruction or gangrene; K42.9 Umbilical hernia without obstruction or gangrene; F41.9 Anxiety disorder, unspecified; Z21 Asymptomatic human immunodeficiency virus [HIV] infection status; I10 Essential (primary) hypertension; K21.9 Gastro-esophageal reflux disease without esophagitis; Z87.891 Personal history of nicotine dependence; Z79.899 Other long term (current) drug therapy; Z88.5 Allergy status to narcotic agent; Z88.8 Allergy status to other drugs, medicaments and biological substances
CPT/HCPCS: 36415; 74176; 80053; 83605; 83690; 85025; 86140; 96372; 99282; J0780; J1885; J2405

== ENCOUNTER 2019-02-15 09:32 | Emergency (ER) | payer OTHER ==
--- NOTE | 2019-02-15 10:04 | ED ---
Abdominal Pain/Female - HPI Summary HPI Summary: This patient is a 59-year-old female with a history of chronic pain and HIV who presents to the ED with the chief complaint of left lower quadrant pain as well as left flank pain since yesterday. Patient appears comfortable on arrival and states the pain is currently rated a 2/10. She does see a pain specialist and takes medications for her chronic pain. She denies any nausea, vomiting, diarrhea, constipation, hematochezia, melena, cough, congestion, CP or SOB. Patient denies any fevers or chills, however endorses some sweats intermittently. Patient doesn't admit she is going through menopause and states the sweats have been normal for her. She continues to eat and drink okay. She does state she was carrying some heavy bags from the grocery store the other day and may have pulled a muscle. Denies any other concerns or symptoms today. She has never been diagnosed with a UTI or kidney stones. Denies any gross hematuria. - History of Current Complaint Chief Complaint: EDAbdPain Stated Complaint: LOWER ABD PAIN Time Seen by Provider: 02/15/19 09:42 Hx Obtained From: Patient ?: No Onset/Duration: Sudden Onset Timing: Constant Severity Initially: Mild Severity Currently: Mild Pain Intensity: 1 Pain Scale Used: 0-10 Numeric Location: Discrete At: LLQ Radiates: No Radiates to: Other - also with flank pain - L side Aggravating Factor(s): Nothing Alleviating Factor(s): Nothing Associated Signs and Symptoms: Positive: Negative. Negative: Constipation, Blood in Stool, Urinary Symptoms, Decreased Appetite - Risk Factors Ectopic Risk Factor: Negative Ovarian Torsion Risk Factor: Negative Allergies/Adverse Reactions: Allergies Allergy/AdvReac Type Severity Reaction Status Date / Time midazolam [From Versed] Allergy Unknown Verified 02/15/19 09:33 Reaction Details oxycodone AdvReac See Comment Verified 02/15/19 09:33 Home Medications: Home Medications Cyclobenzaprine (NF) [Cyclobenzaprine 5 MG (NF)] 10 mg PO TID PRN 02/15/19 [ History Confirmed 02/15/19] Ondansetron TAB* [Zofran 4 MG Tab*] 4 mg PO Q6H PRN 02/15/19 [History Confirmed 02/15/19] hydrOXYzine HCL TAB* [Atarax 25 MG TAB*] 25 mg PO Q8H PRN 02/15/19 [History Confirmed 02/15/19] PMH/Surg Hx/FS Hx/Imm Hx Previously Healthy: Yes Endocrine/Hematology History: Reports: Hx Thyroid Disease, Other Endocrine/ Hematological Disorders - herpes, hiv Denies: Hx Anticoagulant Therapy, Hx Blood Disorders, Hx Diabetes, Hx Unexplained Bleeding Cardiovascular History: Reports: Hx Hypertension, Other Cardiovascular Problems/ Disorders - HAD AN ECHO ON 03/22 SEES Denies: Hx Pacemaker/ICD Respiratory History: Reports: Hx Asthma, Hx Chronic Obstructive Pulmonary Disease (COPD), Hx Sleep Apnea GI History: Reports: Hx Gastroesophageal Reflux Disease, Other GI Disorders - Hep C History: Reports: Other Problems/Disorders - Kidney Disease Denies: Hx Renal Disease Musculoskeletal History: Reports: Hx Arthritis - GENRALIZED, Hx Back Problems, Other Musculoskeletal History - LEFT KNEE, sciatica issues; Chronic Cervical Pain Sensory History: Reports: Hx Contacts or Glasses - GLASSES Denies: Hx Legally Blind, Hx Deafness, Hx Hearing Aid Opthamlomology History: Reports: Hx Contacts or Glasses - GLASSES Denies: Hx Legally Blind Neurological History: Reports: Other Neuro Impairments/Disorders - PT STATES FAMILY HX SCIATICA Psychiatric History: Reports: Hx Anxiety, Hx Depression, Hx Bipolar Disorder Denies: Hx Panic Disorder - Surgical History Surgery Procedure, Year, and Place: appendix; tubal ligation. RECTAL POLYPS JUAN Hx Anesthesia Reactions: No - Immunization History Date of Tetanus Vaccine: unk Date of Influenza Vaccine: fall 2016 Hx Pertussis Vaccination: No Immunizations Up to Date: Yes Infectious Disease History: No Infectious Disease History: Reports: Hx Hepatitis - C, Hx Human Immunodeficiency Virus (HIV) - on meds Denies: Traveled Outside the [place] in Last 30 Days - Family History Known Family History: Positive: Hypertension, Diabetes, Other - sciatica - Social History Occupation: Unemployed Lives: Alone Alcohol Use: None Alcohol Amount: 1 beer last night Hx Substance Use: Yes Substance Use Type: Reports: Marijuana Substance Use Comment - Amount & Last Used: daily Hx Tobacco Use: Yes Smoking Status (MU): Current Every Day Smoker Type: Cigarettes Amount Used/How Often: 1/2 PPD Have You Smoked in the Last Year: Yes Review of Systems Negative: Fever, Chills, Fatigue, Skin Diaphoresis Negative: Dental Pain Negative: Palpitations, Chest Pain Negative: Shortness Of Breath, Cough Positive: Abdominal Pain. Negative: Vomiting, Diarrhea, Nausea Positive: no symptoms reported, see HPI, flank pain - left sided Negative: Arthralgia, Myalgia Skin: Negative Neurological: Negative All Other Systems Reviewed And Are Negative: Yes Physical Exam Triage Information Reviewed: Yes Vital Signs On Initial Exam: Initial Vitals Temp Pulse Resp BP Pulse Ox 97.0 F 101 20 126/94 92 02/15/19 09:33 02/15/19 09:33 02/15/19 09:33 02/15/19 09:33 02/15/19 09:33 Vital Signs Reviewed: Yes Appearance: Positive: Well-Appearing, Well-Nourished Skin: Positive: Skin Color Reflects Adequate Perfusion, Dry Head/Face: Positive: Normal Head/Face Inspection Eyes: Positive: EOMI, NEDRA, Conjunctiva Clear Neck: Positive: Supple Respiratory/Lung Sounds: Positive: Clear to Auscultation, Breath Sounds Present Cardiovascular: Positive: Pulses are Symmetrical in both Upper and Lower Extremities. Negative: Leg Edema Left, Leg Edema Right Abdomen Description: Positive: Nontender, No Organomegaly, Soft, CVA Tenderness (R). Negative: CVA Tenderness (L) Musculoskeletal: Positive: Normal, Strength/ROM Intact Neurological: Positive: Speech Normal Psychiatric: Positive: Normal, Affect/Mood Appropriate AVPU Assessment: Alert Procedures - Sedation Patient Received Moderate/Deep Sedation with Procedure: No Diagnostics - Vital Signs Vital Signs Temp Pulse Resp BP Pulse Ox 02/15/19 09:33 97.0 F 101 20 126/94 92 - Laboratory Result Diagrams: 02/15/19 10:03 02/15/19 10:03 Lab Statement: Any lab studies that have been ordered have been reviewed, and results considered in the medical decision making process. Abdominal Pain Fem Course/Dx - Course Course Of Treatment: During the course of treatment, the patient is evaluated for LLQ pain without diarrhea, constipation, nausea or vomiting. No fevers, sweats, chills. Patient appears well on arrival and is eating and drinking in the room when practitioner arrives. Patient is endorsing a 2/10 pain to the left lower quadrant. CVA tenderness to the left side. No tenderness on palpation to the left lower quadrant. Denies any urinary symptoms. Lungs CTA. RRR. No cervical LAD. Patient appears otherwise well. She does have a history of HIV. Labs obtained which are WNL. Urine obtained which is also clear of any gross hematuria. Pt is stable at this time and will be dc'd with L flank pain - likely pulled muscle to the area. - Diagnoses Differential Diagnosis: Positive: Constipation, Diverticulitis, Urinary Tract Infection Provider Diagnoses: Muscle strain, Left flank pain Discharge ED - Sign-Out/Discharge Documenting (check all that apply): Patient Departure - Discharge Plan Condition: Good Disposition: HOME Patient Education Materials: Muscle Strain (ED) Referrals: Antione Dasilva MD [Primary Care Provider] - Additional Instructions: Likely pulled muscle strain Heat to the area If you develop any worsening or changing symptoms, please return to the ED - Billing Disposition and Condition Condition: GOOD Disposition: Home - Attestation Statements Provider Attestation: pt seen by midlevel provider independently, based on their assessment, it was not necessary to present the case to me but I was available for consultation. I did not form a physician-patient relationship with the patient. The chart however, has been reviewed. am signing this note strictly in an administrative capacity.
--- OUTSIDE RECORDS SUMMARY | 2019-02-15 10:05 | XMS REPORT | Continuity of Care Document ---
:1960 External Reference #:[id number] Author Name Victoria Pacheco M.D. (transmitted by agent of provider Rosanna Chau) Address [address] [place] [id number] Care Team Providers Name Role Phone Antione Dasilva MD - Family Medicine Care Team Information Calliope Player [phone] Problems Active Problems Provider Date Localized, primary osteoarthritis Carri Stanley MD Onset: 11/17/2017 Social History Type Date Description Comments Sex Unknown Tobacco Use Start: Unknown Light tobacco smoker Started smoking in (10 or fewer early 20's cigarettes/day) Smoking Status Reviewed: 12/20/18 Light tobacco smoker Started smoking in (10 or fewer early 20's cigarettes/day) ETOH Use Denied current alcohol use Tobacco Use Start: Unknown Patient is a current smoker, smokes every day Recreational Drug Use Current Drug User 5 joints plus daily Exercise Type/Frequency Does not exercise Allergies, Adverse Reactions, Alerts Active Allergies Reaction Severity Comments Date Midazolam 03/01/2018 Oxycodone 03/01/2018 Inactive Allergies NKDA 08/03/2013 Medications Active Medications SIG Qnty Indications Ordering Date Provider Pravastatin Sodium 1 by mouth every 90tabs Ranjit Martinez, 10/03/2018 10mg evening M.D. Tablets Levalbuterol Tartrate 1 puff 2 times Unknown daily as needed 45mcg/Act Aerosol for sob Thera 1 tablet by mouth Unknown Tablets daily Cyclobenzaprine HCL take 1 tab by Unknown 10mg mouth 3 times a Tablets day as needed for spasm Antioxidant 1 capsule by Unknown Formula/Minerals mouth daily Capsules Gabapentin take one tablet Unknown 600mg Tablets by mouth in the morning and afternoon take 2 t po q hs Biktarvy 1 by mouth every Unknown 50-200-25mg day Tablets Entecavir 1 by mouth every Unknown 0.5mg Tablets day Valacyclovir HCL 1 by mouth daily Unknown 1gm Tablets Singulair 1 by mouth every Unknown 10mg Tablets day hs Lamotrigine 1 by mouth bid Unknown 200mg Tablets Fluticasone Propionate instill 2 sprays Unknown Nasal [place] in each nostril 50mcg/Act daily Suspension Cetirizine HCL 1 by mouth every Unknown 10mg day Chewtabs Norvasc 1 by mouth every 90tabs Unknown 5mg Tablets morning Omeprazole 1 tablet by mouth Unknown 20mg daily Docusate Sodium 1 capsule by Unknown 100mg mouth three times daily Vitamin D 2 tablets by 90tabs Unknown (Cholecalciferol) mouth every day 1000Unit Tablets Hydroxyzine HCL 1 tablet by mouth Unknown 25mg three times daily as needed Medications Administered in Office Medication SIG Qnty Indications Ordering Provider Date Depomedrol 40MG Clarita Warner M.D. 08/16/2018 Injection Depomedrol 40MG Clarita Warner M.D. 05/19/2018 Injection Depomedrol 40MG Clarita Warner M.D. 01/18/2018 Injection Triamcinolone (Kenalog) Carri Stanley MD 10/06/2017 Injection Immunizations Description No Information Available Vital Signs Date Vital Result Comment 12/20/2018 1:42pm Height 65 inches 5'5" Weight 226.25 lb with sandals Heart Rate 106 /min radial, regular BP Systolic Sitting 106 mmHg LA, lg cuff BP Diastolic Sitting 78 mmHg LA, lg cuff BP Systolic Standing 116 mmHg Ra sitting, lg cuff BP Diastolic Standing 80 mmHg Ra sitting, lg cuff BP Systolic Lying Down 116 mmHg Ra standing, lg cuff BP Diastolic Lying Down 78 mmHg Ra standing, lg cuff BMI (Body Mass Index) 37.6 kg/m2 Ejection Fraction 55-60% Stress test 03/22/2018 08/16/2018 9:43am Height 65 inches 5'5" Heart Rate 96 /min BP Systolic 132 mmHg BP Diastolic 90 mmHg Respiratory Rate 18 /min Body Temperature 98.1 F Pain Level 8 Results Test Date Facility Test Result H/L Range Note Order 12/20/2018 [facility] Echocardiogram <pending> [address] [place] [address] [phone] Procedures Date Code Description Status 12/20/2018 16355 EKG Tracing & Interpretation Completed 08/16/2018 64012 Inject/Drain Joint/Bursa Major W/O US Completed Medical Devices Description No Information Available Encounters Type Date Location Provider Dx Diagnosis Office Visit 08/16/2018 [facility] Claritadesean Warner, S80.212D Abrasion, left 10:[facility] knee, subsequent encounter W19.xxxD Unspecified fall, subsequent encounter M17.11 Unilateral primary osteoarthritis, right knee M17.12 Unilateral primary osteoarthritis, left knee M25.561 Pain in right knee M25.461 Effusion, right knee Assessments Date Code Description Provider 12/20/2018 I10 Essential (primary) hypertension Victoria Pacheco M.D. 12/20/2018 R94.31 Abnormal electrocardiogram [ECG] Victoria Pacheco M.D. [EKG] 12/20/2018 R00.0 Tachycardia, unspecified Victoria Pacheco M.D. 12/20/2018 R00.2 Palpitations Victoria Pacheco M.D. 12/20/2018 E66.9 Obesity, unspecified Victoria Pacheco M.D. 12/20/2018 F17.210 Nicotine dependence, cigarettes, Victoria Pacheco M.D. uncomplicated 12/20/2018 G47.33 Obstructive sleep apnea (adult) Victoria Pacheco M.D. (pediatric) 12/20/2018 J44.9 Chronic obstructive pulmonary Victoria Pacheco M.D. disease, unspecified 12/20/2018 R06.02 Shortness of breath Victoria Pacheco M.D. 08/16/2018 S80.212D Abrasion, left knee, subsequent Clarita Warner M.D. encounter 08/16/2018 W19.xxxD Unspecified fall, subsequent Clarita Warner M.D. encounter 08/16/2018 M17.11 Unilateral primary osteoarthritis, Clarita Warner M.D. right knee 08/16/2018 M17.12 Unilateral primary osteoarthritis, Clarita Warner M.D. left knee 08/16/2018 M25.561 Pain in right knee Clarita Warner M.D. 08/16/2018 M25.461 Effusion, right knee Clarita Warner M.D. Plan of Treatment Future Appointment(s):2019 2:00 pm - Victoria Pacheco M.D. at [facility]01/03/2019 3:30 pm - [facility] Schedule at [facility]01/10/2019 10:30 am - Nurse Visit cc at [facility]01/09/2019 12 :00 pm - Nurse Visit cc at [facility]12/20/2018 - Victoria Pacheco M.D.I10 Essential (primary) [id number] Abnormal electrocardiogram [ECG] [EKG]R00.0 Tachycardia, unspecifiedNew Orders:24 hour holter monitor, Ordered: 12/20/18Follow up:DIET COUNSELOR 4-6 wks to discuss all cysykY26.2 RwzujfaxfaaqR83.9 Obesity , wsjxehobnlqY62.210 Nicotine dependence, cigarettes, qdqlqnfbtrhvtH23.33 Obstructive sleep apnea (adult) (pediatric)J44.9 Chronic obstructive pulmonary disease, ajtuqonxfebI50.02 Shortness of breath Functional Status Description No Information Available Mental Status Description No Information Available Referrals Description No Information Available
--- OUTSIDE RECORDS SUMMARY | 2019-02-15 10:05 | XMS REPORT | Continuity of Care Document ---
:1960 External Reference #:[id number] Author Name Victoria Pacheco M.D. (transmitted by agent of provider Rosanna Chau) Address [address] [place] [id number] Care Team Providers Name Role Phone Antione Dasilva MD - Family Medicine Care Team Information Medical Affairs Manager [phone] Problems Active Problems Provider Date Localized, primary osteoarthritis Carri Stanley MD Onset: 11/17/2017 Social History Type Date Description Comments Sex Unknown Tobacco Use Start: Unknown Light tobacco smoker Started smoking in (10 or fewer early 20's cigarettes/day) Smoking Status Reviewed: 01/19/19 Light tobacco smoker Started smoking in (10 [...] Medications SIG Qnty Indications Ordering Date Provider Mounika CD 1 by mouth every 30caps Victoria Zarate 2019 120mg Caps ER day Damion Pacheco 24HR Pravastatin Sodium 1 by mouth every 90tabs Ranjit Martinez 10/03/2018 10mg evening M.D. Tablets Levalbuterol Tartrate [...] Fluticasone Propionate instill 2 sprays Unknown Nasal [place] in each nostril 50mcg/Act daily Suspension Cetirizine HCL 1 by mouth every Unknown 10mg day Chewtabs Omeprazole 1 tablet by mouth Unknown 20mg [...] Available Vital Signs Date Vital Result Comment 2019 1:46pm Height 65 inches 5'5" Weight 230.38 lb with shoes Heart Rate 94 /min right radial BP Systolic Sitting 152 mmHg ule reg cuff BP Diastolic Sitting 90 mmHg ule reg cuff BP Systolic Standing 148 mmHg ule reg cuff BP Diastolic Standing 88 mmHg ule reg cuff O2 % BldC Oximetry 93 % BMI (Body Mass Index) 38.3 kg/m2 Ejection Fraction 60-65% Echo 925/19 12/20/2018 1:42pm Height 65 inches 5'5" Weight [...] kg/m2 Ejection Fraction 55-60% Stress test 03/22/2018 Results Test Date Facility Test Result H/L Range Note Urine Vma 24HR 12/22/2018 [facility] Urine Vma, 5.1 mg/24h < 8.[address] [place] [address] [phone] Urine Collection Duration 24 h Urine Total Volume 1250 mL 2 Urine Metanephrines 12/22/2018 [facility] Urine 201 mcg/24h 3 24HR [address] [facility] [place] [place] [address] [phone] Urine Normetanephrine 1325 mcg/24h Abnormal 4 Urine Total Metanephrines 1526 mcg/24h Abnormal 5 Urine Collection Duration 24 h Urine Volume 1250 mL 6 Laboratory test finding 12/21/2018 [facility] Cortisol 4.02 g/ dL [address] [place] [address] [phone] TSH (Thyroid Stim Horm) 0.97 mcIU/mL Normal 0.34-5.60 8 Vitamin B12 12/21/2018 [facility] Vitamin B12 815 pg/mL Normal 180-914 9 [address] Folate [address] [place] [address] [phone] Folic Acid (Folate) > 20.00 ng/mL >3.99 10 1,25 Dihydroxy 12/21/2018 [facility] Calcitriol 33 pg/mL 18- 78 11 Vitamin D [address] [place] [address] [phone] 1 START: 12.21.18 @0930 STOP: 12.22.18 @0815 2 ADDITIONAL INFORMATION Liquid Chromatography-Tandem Mass Spectrometry (LC-MS/MS). Values obtained from different assay methods or kits may be different and cannot be used interchangeably. The results cannot be interpreted as absolute evidence for the presence or absence of malignant disease. This test was developed and its performance characteristics determined by [facility] in a manner consistent with CLIA requirements. This test has not been cleared or approved by the U.S. Food and Drug Administration. Test Performed by: [facility] [employer] - [address] [address] [employer] St[employer]: Michael Garcia M.D. Ph.D.; CLIA# [id number] 3 REFERENCE VALUE 30-180 (Normotensive) <400 (Hypertensive) 4 REFERENCE VALUE 128-484 (Normotensive) <900 (Hypertensive) 5 REFERENCE VALUE 164-588 (Normotensive) <1300 (Hypertensive) 6 ADDITIONAL INFORMATION This test was developed and its performance characteristics determined by [facility] in a manner consistent with CLIA requirements. This test has not been cleared or approved by the U.S. Food and Drug Administration. Test Performed by: [facility] [employer] - [facility] [address] [place] [address] [employer]: Michael Garcia M.D. Ph.D.; CLIA# [id number] 7 AM 8.7-22.4 PM <10 8 before next ov FASTING 9 Normal Range 180 to 914 Indeterminate Range 145 to 180 Deficient Range <145 10 before next ov FASTING 11 ADDITIONAL INFORMATION This test was developed and its performance characteristics determined by [facility] in a manner consistent with CLIA requirements. This test has not been cleared or approved by the U.S. Food and Drug Administration. Test Performed by: [facility] - [facility] [address] [place] [address] [employer]: Michael Garcia M.D. Ph.D.; CLIA# [id number] Procedures Date Code Description Status 01/10/2019 79778 Holter Monitor Review (24 hr)dr review & interp only Completed 01/09/2019 46443 ECG Monitor/Recording W/Visual Superimposition Scanning Completed 01/09/2019 68872 ECG Monitor/Recording W/Visual Superimposition Scanning Completed 01/03/2019 57665 ECHO Transthoracic, Real-Time 2D With Doppler And Color Completed Flow 01/03/2019 94134 ECHO Transthoracic, Real-Time 2D With Doppler And Color Completed Flow 12/20/2018 64938 EKG Tracing & Interpretation Completed 08/16/2018 04346 Inject/Drain Joint/Bursa Major W/O US Completed Medical Devices Description No Information Available Encounters Type Date Location Provider Dx Diagnosis Office Visit 12/20/2018 [facility] Victoria S. I10 Essential ( primary) 2:20p Damion Pacheco hypertension R94.31 Abnormal electrocardiogram [ECG] [EKG] R00.0 Tachycardia, unspecified R00.2 Palpitations E66.9 Obesity, unspecified F17.210 Nicotine dependence, cigarettes, uncomplicated G47.33 Obstructive sleep apnea (adult) (pediatric) J44.9 Chronic obstructive pulmonary disease, unspecified R06.02 Shortness of breath R07.9 Chest pain, unspecified E78.5 Hyperlipidemia, unspecified F12.10 Cannabis abuse, uncomplicated Office Visit 08/16/2018 10:00a [facility] Clarita S80.212D Abrasion , left at [facility] Warner M.D. knee, subsequent encounter W19.xxxD Unspecified fall, subsequent encounter M17.11 Unilateral primary osteoarthritis, right knee M17.12 Unilateral primary osteoarthritis, left knee M25.561 Pain in right knee M25.461 Effusion, right knee Assessments Date Code Description Provider 2019 R00.0 Tachycardia, unspecified Victoria Pacheco M.D. 2019 R00.2 Palpitations Victoria Pacheco M.D. 2019 R06.02 Shortness of breath Victoria Pacheco M.D. 2019 I10 Essential (primary) hypertension Victoria Pacheco M.D. 2019 E66.9 Obesity, unspecified Victoria Pacheco M.D. 2019 F17.210 Nicotine dependence, cigarettes, Victoria Pacheco M.D. uncomplicated 01/10/2019 R00.0 Tachycardia, unspecified Victoria Pacheco M.D. 01/09/2019 R00.2 Palpitations Nurse Visit cc 01/09/2019 R00.0 Tachycardia, unspecified Victoria Pacheco M.D. 01/09/2019 R00.0 Tachycardia, unspecified Nurse Visit cc 01/03/2019 R06.02 Shortness of breath Victoria Pacheco M.D. 01/03/2019 R06.02 Shortness of breath [facility] 01/03/2019 I10 Essential (primary) hypertension [facility] 01/03/2019 R94.31 Abnormal electrocardiogram [ECG] [facility] [EKG] 01/03/2019 R00.0 Tachycardia, unspecified [facility] 01/03/2019 R00.2 Palpitations [facility] 12/20/2018 I10 Essential (primary) hypertension Victoria Pacheco [...] R06.02 Shortness of breath Victoria Pacheco M.D. 12/20/2018 R07.9 Chest pain, unspecified Victoria Pacheco M.D. 12/20/2018 E78.5 Hyperlipidemia, unspecified Victoria Pacheco M.D. 12/20/2018 F12.10 Cannabis abuse, uncomplicated Victoria Pacheco M.D. 08/16/2018 S80.212D Abrasion, left knee, subsequent Clarita Warner M.D. encounter 08/16/2018 W19.xxxD Unspecified fall, subsequent Clarita Warner M.D. encounter 08/16/2018 M17.11 Unilateral primary osteoarthritisClarita M.D. right knee 08/16/2018 M17.12 Unilateral primary osteoarthritis, Clarita Warner M.D. left knee 08/16/2018 M25.561 Pain in right knee Clarita Warner M.D. 08/16/2018 M25.461 Effusion, right knee Clarita Warner M.D. Plan of Treatment Future Appointment(s):02/12/2019 9:30 am - Sarah Ayala, N.PEv at [facility]01/26/2019 2:00 pm - Nurse Visit cc at [facility]2019 - Victoria Pacheco M.D.R00.0 Tachycardia, unspecifiedNew Xrays:CT Abdomen W/ Wo, Scheduled: 02/06/19Follow up:2-4 wks ov [employer] to discuss ryhssU75.2 PwuuwyxlurckE39.02 Shortness of thaspmD50 Essential (primary) hypertensionNew Xrays:US Renal Complete, Scheduled: 02/06/19Follow up:one week BP check nurse ov one yr with meE66.9 Obesity, edxpqnjjnhpO48.210 Nicotine dependence, cigarettes, uncomplicated Functional Status Description No Information Available Mental Status Description No Information Available Referrals Description No Information Available
--- OUTSIDE RECORDS SUMMARY | 2019-02-15 10:05 | XMS REPORT | Continuity of Care Document ---
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 Problems Active Problems Provider Date Localized, primary osteoarthritis Carri Stanley MD Onset: 11/17/2017 Social History Type Date Description Comments Sex Unknown ETOH Use Occasionally consumes alcohol Tobacco Use Start: Unknown Patient is a current smoker, smokes every day Recreational Drug Use Current Drug User 5 joints plus daily Smoking Status Reviewed: 08/16/18 Patient is a current smoker, smokes every day Exercise Type/Frequency Does not exercise Allergies, Adverse Reactions, Alerts Active Allergies Reaction Severity Comments Date Midazolam 03/01/2018 Oxycodone 03/01/2018 Inactive Allergies NKDA 08/03/2013 Medications Active Medications SIG Qnty Indications Ordering Date Provider Pravastatin Sodium 1 by mouth every 90tabs Ranjit Martinez, 10/03/2018 10mg evening M.D. Tablets Cyclobenzaprine HCL take 1 tab by Unknown 10mg mouth 3 times a Tablets day as needed for spasm [facility] Omeprazole 1 by mouth d Unknown 20mg Tablets DR Antioxidant 1 t po d Unknown Formula/Minerals Capsules Xopenex HFA take 1-2 puffs as Unknown 45mcg/Act needed every 6 Aerosol hours. Gabapentin take one tablet by Unknown 600mg Tablets mouth in the morning and afternoon take 2 t po q hs PX Docusate Sodium 1 t po tid Unknown 100mg Capsules Biktarvy 1 by mouth every Unknown 50-200-25mg day Tablets Entecavir 1 by mouth every Unknown 0.5mg Tablets day Valacyclovir HCL 1 by mouth d Unknown 1gm Tablets Singulair 1 by mouth every Unknown 10mg Tablets day hs Lamotrigine 1 by mouth bid Unknown 200mg Tablets Fluticasone Propionate instill 2 sprays Unknown Nasal [place] in each nostril 50mcg/Act daily Suspension Cetirizine HCL 1 by mouth every Unknown 10mg day Chewtabs Ventolin HFA 1 to 2 inhalations Unknown 108(90Base) every 4 hours as mcg/Act Aerosol needed Norvasc 1 by mouth every 90tabs Unknown 5mg Tablets morning Omeprazole Unknown 20mg Docusate Sodium Unknown 100mg Vitamin D 2 t by mouth every 90tabs Unknown (Cholecalciferol) day 1000Unit Tablets Hydroxyzine HCL 1 t po tid prn Unknown 25mg anxiety Medications Administered in Office Medication SIG Qnty [...] F BMI (Body Mass Index) 37.1 kg/m2 Results Description No Information Available Procedures Date Code Description Status 08/16/2018 37476 Inject/Drain Joint/Bursa Major W/O US Completed Medical Devices Description No Information Available Encounters Type Date Location Provider Dx Diagnosis Office Visit 08/16/2018 [facility], S80.212D Abrasion, left 10[facility], subsequent encounter W19.xxxD Unspecified fall, subsequent encounter M17.11 Unilateral primary osteoarthritis, right knee M17.12 Unilateral primary osteoarthritis, left knee M25.561 Pain in right knee M25.461 Effusion, right knee Assessments Date Code Description Provider 08/16/2018 S80.212D Abrasion, left knee, subsequent encounter Clarita Warner M.D. 08/16/2018 W19.xxxD Unspecified fall, subsequent encounter Clarita Warner M.D. 08/16/2018 M17.11 Unilateral primary osteoarthritis, right knee Clarita Warner M.D. 08/16/2018 M17.12 Unilateral primary osteoarthritis, left knee Clarita Warner M.D. 08/16/2018 M25.561 Pain in right knee Clarita Warner M.D. 08/16/2018 M25.461 Effusion, right knee Clarita Warner M.D. Plan of Treatment 08/16/2018 - Clarita Warner M.D.S80.212D Abrasion, left knee, subsequent jrtxtngybX14.xxxD Unspecified fall, subsequent kttqmhrggX44.11 Unilateral primary osteoarthritis, right kneeM17.12 Unilateral primary osteoarthritis, left kneeFollow up:Follow up: As eokkdcF66.561 Pain in right kneeM25.461 Effusion, right knee Functional Status Description No Information Available Mental Status Description No Information Available Referrals Description No Information Available
[2019-02-15 10:12] LABS: Hematocrit 46 % (35-47); Hemoglobin 15.4 g/dL (12.0-16.0); Mean Corpuscular HGB Conc 33 g/dL (31-36); Mean Corpuscular Hemoglobin 32 pg (27-31); Mean Corpuscular Volume 95 fL (80-97); Mean Platelet Volume 9.6 fL (7.4-10.4); Platelet Count 222 10^3/uL (150-450); Red Cell Distribution Width 14 % (10-15); White Blood Count 7.3 10^3/uL (3.5-10.8)
[2019-02-15 10:37] LABS: Albumin 4.7 g/dL (3.2-5.2); Albumin/Globulin Ratio 1.4 (1-3); BUN/Creatinine Ratio 11.9 (8-20); Calcium 9.9 mg/dL (8.6-10.3); EGFR African American 56.9 (>60); Globulin 3.4 g/dL (2-4); Potassium 4.1 mmol/L (3.5-5.0); Total Bilirubin 0.4 mg/dL (0.2-1.0); Total Protein 8.1 g/dL (6.4-8.9)
[2019-02-15 11:10] LABS: Urine Appearance Cloudy; Urine Bacteria Absent (Absent); Urine Bilirubin Negative (Negative); Urine Blood Negative (Negative); Urine Color Yellow; Urine Glucose Negative (Negative); Urine Ketones Negative (Negative); Urine Nitrite Negative (Negative); Urine Protein 1+(30 mg/dL) (Negative); Urine Red Blood Cell Trace(0-2/hpf) (Absent); Urine Squamous Epithelial Cell Present (Absent); Urine Urobilinogen Negative (Negative); Urine White Blood Cell Trace(0-5/hpf) (Absent)
[2019-02-15 11:13] LABS: ABS Basophils 0.1 10^3/ul (0-0.2); ABS Eosinophils 0.2 10^3/ul (0-0.6); ABS Monocytes 0.4 10^3/ul (0-0.8); ABS Neutrophils 3.6 10^3/ul (1.5-7.7); Eosinophil % 2.5 %; Lymphocyte % 41.1 %; Nucleated Red Blood Cells % 0.1
[2019-02-15 11:38] VITALS: BP 136/86
== END 2019-02-15 11:35 | disposition home or self-care (01) ==
LOC: ED 09:32
DX: S39.012A Strain of muscle, fascia and tendon of lower back, initial encounter (principal); R10.32 Left lower quadrant pain; X58.XXXA Exposure to other specified factors, initial encounter; Y92.9 Unspecified place or not applicable; Z21 Asymptomatic human immunodeficiency virus [HIV] infection status; E07.9 Disorder of thyroid, unspecified; I10 Essential (primary) hypertension; J44.9 Chronic obstructive pulmonary disease, unspecified; F41.9 Anxiety disorder, unspecified; F31.9 Bipolar disorder, unspecified; F17.210 Nicotine dependence, cigarettes, uncomplicated; Z98.51 Tubal ligation status; Z79.899 Other long term (current) drug therapy; Z88.5 Allergy status to narcotic agent; Z88.8 Allergy status to other drugs, medicaments and biological substances
CPT/HCPCS: 36415; 80053; 81003; 81015; 83690; 85025; 87086; 99283

== ENCOUNTER 2022-11-17 18:24 | Observation (INO) ==
[2022-11-17 18:45] LABS: ABS Basophils 0.1 10^3/uL (0.0-0.1); ABS Eosinophils 0.1 10^3/uL (0.0-0.5); ABS Lymphocytes 2.8 10^3/uL (1.0-4.8); ABS Monocytes 0.7 10^3/uL (0.0-0.9); ABS Neutrophils 7.9 10^3/uL (1.5-7.6); ABS Nucleated RBC 0.02 10^3/ul; Eosinophil % 0.8 %; Hematocrit 44.1 % (35-45); Hemoglobin 15.1 g/dL (11.5-14.3); Lymphocyte % 23.8 %; Mean Corpuscular Hemoglobin 31.9 pg (27-33); Mean Corpuscular Hgb Conc 34.3 g/dL (31-36); Mean Corpuscular Volume 92.9 fL (80-97); Mean Platelet Volume 9.5 fL (7.5-11.2); Nucleated Red Blood Cells % 0.2 /100 WBC (0.0-0.4); Platelet Count 219 10^3/uL (150-450); Red Blood Count 4.74 10^6/uL (3.63-4.92); Red Cell Distribution Width 14.3 % (12-17); White Blood Count 11.6 10^3/uL (3.8-11.8)
[2022-11-17 18:50] LABS: INR 1.13 (0.88-1.18)
[2022-11-17 19:08] LABS: Albumin 4.7 g/dL (3.2-5.2); Albumin/Globulin Ratio 1.3 (1-3); Calcium 9.9 mg/dL (8.6-10.3); Creatinine, Serum 1.12 mg/dL (0.51-0.95); Globulin 3.5 g/dL (2-4); Total Bilirubin 0.6 mg/dL (0.2-1.0); Total Protein 8.2 g/dL (6.4-8.9); eGFR CKD-EPI 55.9 (>60)
[2022-11-17 20:42] LABS: High Sensitivity Troponin 1 Hr 5 pg/mL (<15)
[2022-11-17] MEDS ORDERED: Albuterol HFA INHALER 8 gm MDI INH ONE (21:04)
[2022-11-17] MEDS ORDERED: Iodixanol (CONTRAST) 320 MG/ML 100 ML SDV IV ONE (21:27)
[2022-11-18] MEDS ORDERED: Azithromycin 500 mg/250 ml NS 500 MG/250 ML BAG IVPB ONE (00:45)
[2022-11-18] MEDS ORDERED: cefTRIAXone 1 gm/50 mL D5W 1 GM/50 ML BAG IV ONE (00:45)
[2022-11-18] MEDS ORDERED: methylPREDNISolone SOD SUCC 125 mg 2 ML VIAL IV ONE (00:45)
[2022-11-18] MEDS ORDERED: Ondansetron 4 mg VIAL 2 MG/ML 2 ml VIAL IV PRN (01:11)
[2022-11-18] MEDS ORDERED: Magnesium Hydroxide LIQ 30 ML UDC PO PRN (01:11)
[2022-11-18] MEDS ORDERED: Senna TAB 8.6 mg TAB PO PRN (01:11)
[2022-11-18] MEDS ORDERED: Levalbuterol HFA INHALER MDI INH PRN (01:57)
[2022-11-18 02:34] LABS: C Reactive Protein 41.35 mg/L (<8.01)
[2022-11-18] MEDS: Enoxaparin 40 MG/0.4 ML SYR SUBCUT SCH ×2 (02:44→22:14)
[2022-11-18] MEDS ORDERED: cefTRIAXone 1 gm/50 mL D5W 1 GM/50 ML BAG IV SCH (03:00)
[2022-11-18] MEDS ORDERED: Lidocaine PATCH 5% PATCH TRANSDERM ONE (04:00)
[2022-11-18 06:44] LABS: ABS Lymphocytes 1.4 10^3/uL (1.0-4.8); ABS Monocytes 0.3 10^3/uL (0.0-0.9); ABS Nucleated RBC 0.01 10^3/ul; Eosinophil % 0.1 %; Hematocrit 46.7 % (35-45); Hemoglobin 15.9 g/dL (11.5-14.3); Lymphocyte % 13.1 %; Mean Corpuscular Hemoglobin 32.1 pg (27-33); Mean Corpuscular Volume 94.5 fL (80-97); Mean Platelet Volume 9.7 fL (7.5-11.2); Nucleated Red Blood Cells % 0.1 /100 WBC (0.0-0.4); Platelet Count 224 10^3/uL (150-450); Red Blood Count 4.94 10^6/uL (3.63-4.92); Red Cell Distribution Width 14.6 % (12-17); White Blood Count 10.7 10^3/uL (3.8-11.8)
[2022-11-18 06:55] LABS: Calcium 9.4 mg/dL (8.6-10.3); Creatinine, Serum 1.1 mg/dL (0.51-0.95); Potassium 4.2 mmol/L (3.5-5.0); eGFR CKD-EPI 57.2 (>60)
[2022-11-18] MEDS ORDERED: CMCS: Entecavir 0.5 mg TAB (NF) PO SCH (09:00)
[2022-11-18] MEDS ORDERED: Bictegravir/Emtricit/Tenofov 1 TABLET PO SCH (09:00)
[2022-11-18] MEDS: Cholecalciferol (VIT D3) 1,000 unit TAB PO SCH (10:23)
[2022-11-18] MEDS: Multivitamins/Minerals TAB PO SCH (10:25)
[2022-11-18] MEDS ORDERED: Pravastatin 10 mg TAB (NF) PO SCH (21:00)
[2022-11-19] MEDS ORDERED: Azithromycin 500 mg/250 ml NS 500 MG/250 ML BAG IVPB SCH (01:00)
[2022-11-19] MEDS ORDERED: cefTRIAXone 1 gm/50 mL D5W 1 GM/50 ML BAG IV SCH (06:00)
[2022-11-19 06:44] LABS: ABS Lymphocytes 2.2 10^3/uL (1.0-4.8); ABS Neutrophils 13.8 10^3/uL (1.5-7.6); Hematocrit 41.2 % (35-45); Hemoglobin 13.8 g/dL (11.5-14.3); Lymphocyte % 12.9 %; Mean Corpuscular Hemoglobin 31.4 pg (27-33); Mean Corpuscular Hgb Conc 33.5 g/dL (31-36); Mean Corpuscular Volume 93.9 fL (80-97); Platelet Count 214 10^3/uL (150-450); Red Blood Count 4.39 10^6/uL (3.63-4.92); Red Cell Distribution Width 14.4 % (12-17)
[2022-11-19 07:10] LABS: Creatinine, Serum 0.82 mg/dL (0.51-0.95); Magnesium 2.1 mg/dL (1.9-2.7); Potassium 4.3 mmol/L (3.5-5.0); eGFR CKD-EPI 81.3 (>60)
[2022-11-19] MEDS ORDERED: Bictegravir/Emtricit/Tenofov 1 TABLET PO SCH (09:00)
[2022-11-19] MEDS ORDERED: ENTECAVIR 0.5 MG PO SCH (09:00)
[2022-11-19] MEDS ORDERED: CMCS: Pravastatin 20 mg TAB (NF) PO SCH (09:00)
[2022-11-19 09:52] VITALS: BP 136/88
[2022-11-19] MEDS: Multivitamins/Minerals TAB PO SCH (10:10)
[2022-11-19] MEDS: Cholecalciferol (VIT D3) 1,000 unit TAB PO SCH (10:11)
== END 2022-11-19 14:05 | disposition home or self-care (01) ==
LOC: EDHOLD 18:24 → ED 18:24 → SUATTDRO 11-18 01:11 → MED 11-18 03:12
PROVIDERS: ADMIT Internal Medicine; ATTEND Internal Medicine

== ENCOUNTER 2023-06-03 01:17 | Inpatient (IN) ==
[2023-06-03 02:15] LABS: ABS Eosinophils 0.1 10^3/uL (0.0-0.5); ABS Lymphocytes 0.7 10^3/uL (1.0-4.8); ABS Monocytes 0.7 10^3/uL (0.0-0.9); ABS Neutrophils 7.9 10^3/uL (1.5-7.6); ABS Nucleated RBC 0.01 10^3/ul; Hematocrit 42.4 % (35-45); Hemoglobin 14.4 g/dL (11.5-14.3); Lymphocyte % 7.8 %; Mean Corpuscular Hemoglobin 30.6 pg (27-33); Mean Corpuscular Hgb Conc 33.9 g/dL (31-36); Mean Corpuscular Volume 90.3 fL (80-97); Mean Platelet Volume 10.2 fL (7.5-11.2); Nucleated Red Blood Cells % 0.1 %/100WBC (0.0-0.8); Platelet Count 216 10^3/uL (150-450); Red Cell Distribution Width 13.5 % (12-17); White Blood Count 9.4 10^3/uL (3.8-11.8)
[2023-06-03 03:10] LABS: ALT 24 U/L (7-52); Albumin 4.6 g/dL (3.2-5.2); Albumin/Globulin Ratio 1.4 (1-3); Alkaline Phosphatase 128 U/L (35-149); Anion Gap 9 mmol/L (2-16); Blood Urea Nitrogen 10 mg/dL (6-24); CO2 Carbon Dioxide 30 mmol/L (22-32); Calcium 9.6 mg/dL (8.6-10.3); Chloride 95 mmol/L (101-111); Creatinine, Serum 1.09 mg/dL (0.51-0.95); Globulin 3.2 g/dL (2-4); Glucose 187 mg/dL (70-100); Sodium 134 mmol/L (135-145); Total Bilirubin 0.4 mg/dL (0.2-1.0); Total Protein 7.8 g/dL (6.4-8.9); eGFR CKD-EPI 57.4 (>60)
[2023-06-03] MEDS: Iodixanol (CONTRAST) 320 MG/ML 100 ML SDV IV ONE (04:00)
[2023-06-03] MEDS: Lactated Ringers 1000 ml BAG 1,000 ML IV ONE ×2 (06:03→09:30)
[2023-06-03] MEDS ORDERED: Lactated Ringers 1000 ml BAG 1,000 ML IV SCH (07:00)
[2023-06-03 07:01] LABS: Potassium Redraw 4.6 mmol/L (3.5-5.0)
[2023-06-03] MEDS ORDERED: Levalbuterol HFA INHALER MDI INH PRN (07:43)
[2023-06-03] MEDS: Enoxaparin 40 MG/0.4 ML SYR SUBCUT SCH (08:07)
[2023-06-03] MEDS: Albuterol/Ipratropium NEB.SOL (2.5/0.5 MG) 3 ML NEB.SOLN INH SCH (10:16)
[2023-06-03] MEDS: methylPREDNISolone SOD SUCC 40 mg/ml 1 ml VIAL IV SCH (10:27)
[2023-06-03] MEDS: CMCS:Entecavir 0.5 mg TAB (NF) PO SCH (10:28)
[2023-06-03] MEDS: cefTRIAXone 1 gm/50 mL D5W 1 GM/50 ML BAG IV SCH (10:28)
[2023-06-03] MEDS: NF:Bictegravir/Emtricit/Tenofov 1 TABLET PO SCH (10:30)
[2023-06-03] MEDS: FLUTICAS/UMECLI/VILANT 100-62.5-25 MDI (NF) INH SCH (10:33)
[2023-06-03] MEDS: Lactated Ringers 1000 ml BAG 1,000 ML IV SCH (16:24)
[2023-06-03 17:00] LABS: C Reactive Protein 25.39 mg/L (<8.01)
[2023-06-03 17:14] LABS: TSH Ultra Thyroid Stim Horm 0.4 mcIU/mL (0.34-5.60)
[2023-06-04 05:59] LABS: ABS Monocytes 0.4 10^3/uL (0.0-0.9); ABS Neutrophils 8.2 10^3/uL (1.5-7.6); ABS Nucleated RBC 0.01 10^3/ul; Hematocrit 43.1 % (35-45); Hemoglobin 14.2 g/dL (11.5-14.3); Lymphocyte % 10.3 %; Mean Corpuscular Hemoglobin 30.2 pg (27-33); Mean Corpuscular Volume 91.4 fL (80-97); Mean Platelet Volume 9.8 fL (7.5-11.2); Nucleated Red Blood Cells % 0.1 %/100WBC (0.0-0.8); Platelet Count 204 10^3/uL (150-450); Red Blood Count 4.72 10^6/uL (3.63-4.92); Red Cell Distribution Width 13.6 % (12-17); White Blood Count 9.6 10^3/uL (3.8-11.8)
[2023-06-04 06:31] LABS: Calcium 9.4 mg/dL (8.6-10.3); Potassium 5.2 mmol/L (3.5-5.0); eGFR CKD-EPI 63.7 (>60)
[2023-06-04] MEDS ORDERED: Albuterol/Ipratropium NEB.SOL (2.5/0.5 MG) 3 ML NEB.SOLN INH PRN (07:11)
[2023-06-04] MEDS ORDERED: Dextrose 50% Syringe 50 ml 25 GM/50 ML SYRINGE IV PUSH PRN (11:50)
[2023-06-04 16:44] LABS: Glucose Confirmatory 485 mg/dL (70-100)
[2023-06-04] MEDS: Lactated Ringers 1000 ml BAG 1,000 ML IV SCH (16:47)
[2023-06-04 17:08] LABS: Calcium 9.9 mg/dL (8.6-10.3); Creatinine, Serum 1.22 mg/dL (0.51-0.95); Potassium 5.2 mmol/L (3.5-5.0); eGFR CKD-EPI 50.2 (>60)
[2023-06-04] MEDS: Insulin GLARGINE 100 un/ml 10 ml VIAL SUBCUT SCH (18:22)
[2023-06-04] MEDS ORDERED: Insulin GLARGINE 100 un/ml 10 ml VIAL SUBCUT SCH (20:00)
[2023-06-05 06:39] LABS: ABS Lymphocytes 2.3 10^3/uL (1.0-4.8); ABS Monocytes 0.6 10^3/uL (0.0-0.9); ABS Neutrophils 10.9 10^3/uL (1.5-7.6); ABS Nucleated RBC 0.01 10^3/ul; Hematocrit 42.4 % (35-45); Hemoglobin 13.9 g/dL (11.5-14.3); Lymphocyte % 16.7 %; Mean Corpuscular Hgb Conc 32.8 g/dL (31-36); Mean Corpuscular Volume 91.5 fL (80-97); Mean Platelet Volume 10.2 fL (7.5-11.2); Nucleated Red Blood Cells % 0.1 %/100WBC (0.0-0.8); Platelet Count 231 10^3/uL (150-450); Red Blood Count 4.63 10^6/uL (3.63-4.92); Red Cell Distribution Width 13.5 % (12-17); White Blood Count 13.8 10^3/uL (3.8-11.8)
[2023-06-05 07:20] LABS: Calcium 9.6 mg/dL (8.6-10.3); Creatinine, Serum 1.11 mg/dL (0.51-0.95); Potassium 5.1 mmol/L (3.5-5.0); eGFR CKD-EPI 56.2 (>60)
[2023-06-05 10:56] LABS: HDL Cholesterol 44.2 mg/dL
[2023-06-05] MEDS: CMC:DAPAGLIFLOZIN 10 MG TAB (NF) PO SCH (12:14)
[2023-06-05 12:24] LABS: Glucose Confirmatory 418 mg/dL (70-100)
[2023-06-05] MEDS ORDERED: Dextrose 50% Syringe 50 ml 25 GM/50 ML SYRINGE IV PUSH PRN ×2 (13:49→13:57)
[2023-06-06 06:55] LABS: Hematocrit 43.1 % (35-45); Hemoglobin 14.1 g/dL (11.5-14.3); Mean Corpuscular Hemoglobin 29.9 pg (27-33); Mean Corpuscular Hgb Conc 32.7 g/dL (31-36); Mean Corpuscular Volume 91.5 fL (80-97); Platelet Count 229 10^3/uL (150-450); Red Blood Count 4.71 10^6/uL (3.63-4.92); Red Cell Distribution Width 13.8 % (12-17); White Blood Count 9.6 10^3/uL (3.8-11.8)
[2023-06-06 08:12] LABS: Calcium 9.4 mg/dL (8.6-10.3); Creatinine, Serum 1.08 mg/dL (0.51-0.95); Magnesium 1.9 mg/dL (1.9-2.7); Potassium 4.3 mmol/L (3.5-5.0); eGFR CKD-EPI 58.1 (>60)
[2023-06-06 13:34] VITALS: BP 153/90
== END 2023-06-06 16:05 | disposition home or self-care (01) | DRG 720 ==
LOC: ED 01:17 → EDHOLD 01:17 → SUATTDRO 04:08 → MEDTELE 14:31
PROVIDERS: ADMIT Student in an Organized Health Care Education/Training Program; ATTEND Internal Medicine